=== PATIENT | female | born 1945 | race Caucasian/White ===

== ENCOUNTER → 2016-11-03 | Outpatient (CLI) | payer OTHER | LOC: FIMAGING 07:30 | PROVIDERS: ATTEND Family Medicine | DX: Z12.31 Encounter for screening mammogram for malignant neoplasm of breast (principal); Z80.3 Family history of malignant neoplasm of breast | CPT/HCPCS: G0202 ==

== ENCOUNTER 2016-11-16 09:08 | Observation (INO) | payer OTHER ==
--- NOTE | 2016-11-16 09:32 | CPEKG ---
Heart Rate: 87 RR Interval: 690 QRSD Interval: 92 QT Interval: 384 QTC Interval: 462 QRS [place]: 33 T Wave [place]: 269 EKG Severity - ABNORMAL ECG - EKG Impression: ATRIAL FIBRILLATION, V-RATE 58-106 EKG Impression: NONSPECIFIC REPOL ABNORMALITY, LATERAL LEADS Electronically Signed By: Werner Harvey 16-Nov-2016 15:11:40
--- NOTE | 2016-11-16 09:44 | EDPHY ---
H & P Time Seen by Provider: 11/16/16 09:43 HPI/ROS: Chief complaint. Chest pain HPI. 71-year-old female with known coronary artery disease presents with chest tightness. It has been going off and on for several weeks. When she carries laundry or goes for walks including up and downstairs she develops heaviness in her anterior chest that radiates through to her back. She still has some residual chest discomfort. It is worse with exertion as noted. She has slight shortness of breath with her symptoms. No fever cough. No unusual leg pain or swelling. This is similar to her previous heart disease. She did take aspirin this morning. ROS Constitutional. no fever/chills, no weakness Eyes. no problems with vision ENT. no sore throat, no nasal drainage Cardiovascular. Chest discomfort Respiratory. Shortness of breath with symptoms Abdominal. no abdominal pain, no nausea/vomiting, no diarrhea . no problems urinating MS. no calf pain/swelling, no neck/back pain, no joint pain Skin. no rash Lymph. no swollen glands Neuro. no headache, no dizziness, no difficulty walking or with speech Past Medical/Surgical History: Past medical history seen for CHF, diabetes, RI, angioplasty with stent, atrial fibrillation that is chronic, CVA, right carotid endarterectomy Social History: , nonsmoker, no alcohol Smoking Status: Former smoker Physical Exam: General Appearance: Alert well-developed female mild distress vital signs are stable Eyes: Pupils equal and round no pallor or injection. ENT, Mouth: Mucous membranes are moist. Respiratory: There are no retractions, lungs are clear to auscultation. Cardiovascular: Regular rate and rhythm. Gastrointestinal: Abdomen is soft and nontender, no masses, bowel sounds normal. Neurological: Awake and alert, sensory and motor exams grossly normal. Skin: Warm and dry, no rashes. Musculoskeletal: Neck is supple nontender. Extremities symmetrical, full range of motion. Psychiatric: Patient is oriented X 3, there is no agitation. Constitutional: Initial Vital Signs Temperature (C) 36.6 C 11/16/16 09:13 Heart Rate 77 11/16/16 09:13 Respiratory Rate 14 11/16/16 09:13 Blood Pressure 153/82 H 11/16/16 09:13 O2 Sat (%) 95 11/16/16 09:13 O2 Delivery Mode Room Air Allergies/Adverse Reactions: diazepam [From Valium] Allergy (Verified 04/17/14 10:25) DEMOTHORPAN Allergy (Uncoded 04/17/14 10:25) Home Medications: Medication Instructions Recorded Aspirin [Aspirin 325 mg (*)] 325 mg PO DAILY 04/17/14 Calcium Carbonate [Oyster Shell 750 mg PO DAILY 04/17/14 Calcium 500 mg (*)] Carvedilol [Coreg (*)] 25 mg PO BIDMEAL 04/17/14 Cholecalciferol Vit D3 [Vitamin D3 1,000 units PO BID 04/17/14 (*)] Herbals/Supplements -Info Only 1 ea PO DAILY 04/17/14 Lansoprazole 30 mg PO DAILY 04/17/14 Levothyroxine [Synthroid 88 mcg 88 mcg PO DAILY@04 04/17/14 (*)] Magnesium Oxide [Magnesium Oxide 400 mg PO HS 04/17/14 400 mg (*)] Multivitamins [Multivitamin (*)] 1 each PO DAILY 04/17/14 Vitamin B Complex [Super B-50 1 each PO DAILY 04/17/14 Complex] Warfarin Sodium [Coumadin 1MG (*)] 1 mg PO SUTUWETHSA@16 04/17/14 Warfarin Sodium [Coumadin 1MG (*)] 1.5 mg PO MOFR@16 04/17/14 metFORMIN HCL [Glucophage 500 mg 1,000 mg PO BIDMEAL 04/17/14 (*)] Alton-3 Fatty Acids [Fish Oil 1000 1,000 mg PO DAILY 05/09/14 mg (*)] Digoxin [Lanoxin 125 mcg (RX)] 125 mcg PO DAILY10 #30 tab 10/11/15 Furosemide [Lasix 20 MG (*)] 20 mg PO DAILY 01/13/16 oxyCODONE/APAP 5/325 [Percocet 1 - 2 tab PO Q4 PRN #10 tab 01/14/16 5/325 (*)] traMADol [Ultram 50 mg (*)] 50 mg PO DAILY PRN #45 tab 01/14/16 Medical Decision Making - Diagnostics EKG Interpretation: EKG interpreted by me shows atrial fibrillation with left axis deviation. Inferior and lateral ST-T depression. Ventricular response is 86 Imaging Results: Imaging Impressions Chest X-Ray 11/16/16 09:56 Impression: Cardiomegaly with features of chronic CHF, without acute features. Chest x-ray interpreted by me shows mild CHF but otherwise nonacute Procedures: IV normal saline, monitor ED Course/Re-evaluation: Re-evaluation 01/1940 a.m.. Patient is stable. The patient, her , and I discussed laboratory evaluation, recommendation for admission and further evaluation. They expressed understanding and agreement I consulted and discussed the case with Dr. Mcfadden, hospitalist, who agrees to the admission Differential Diagnosis: This certainly sounds like unstable angina. I have considered acute coronary syndrome, congestive heart failure, pneumonia as well - Data Points Laboratory Results: Laboratory Results 11/16/16 09:30 11/16/16 09:30 11/16/16 11/16/16 11/16/16 09:30 09: 09:30 WBC 8.13 10^3/uL 10^3/uL (3.80-9.50) RBC 4.38 10^6/uL 10^6/uL (4.18-5.33) Hgb 11.7 g/dL L g/dL (12.6-16.3) Hct 36.4 % L % (38.0-47.0) MCV 83.1 fL fL (81.5-99.8) MCH 26.7 pg L pg (27.9-34.1) MCHC 32.1 g/dL L g/dL (32.4-36.7) RDW 15.5 % H % (11.5-15.2) Plt Count 356 10^3/uL 10^3/uL (150-400) MPV 9.8 fL fL (8.7-11.7) Neut % (Auto) 64.6 % % (39.3-74.2) Lymph % (Auto) 19.4 % % (15.0-45.0) [place] % (Auto) 10.2 % % (4.5-13.0) Eos % (Auto) 4.3 % % (0.6-7.6) Baso % (Auto) 1.0 % % (0.3-1.7) Nucleat RBC Rel Count 0.0 % % (0.0-0.2) Absolute Neuts (auto) 5.25 10^3/uL 10^3/uL (1.70-6.50) Absolute Lymphs (auto) 1.58 10^3/uL 10^3/uL (1.00-3.00) Absolute Monos (auto) 0.83 10^3/uL H 10^3/uL (0.30-0.80) Absolute Eos (auto) 0.35 10^3/uL 10^3/uL (0.03-0.40) Absolute Basos (auto) 0.08 10^3/uL 10^3/uL (0.02-0.10) Absolute Nucleated RBC 0.00 10^3/uL 10^3/uL (0-0.01) Immature Gran % 0.5 % % (0.0-1.1) Immature Gran # 0.04 10^3/uL 10^3/uL (0.00-0.10) PT Pending INR Pending APTT Pending Sodium 137 mEq/L mEq/L (134-144) Potassium 4.9 mEq/L mEq/L (3.5-5.2) Chloride 100 mEq/L mEq/L (97-110) Carbon Dioxide 21 mEq/l L mEq/l (22-31) Anion Gap 16 mEq/L mEq/L (8-16) BUN 13 mg/dL mg/dL (7-23) Creatinine 0.7 mg/dL mg/dL (0.6-1.0) Estimated GFR > 60 Glucose 115 mg/dL H mg/dL (70-100) Calcium 9.8 mg/dL mg/dL (8.5-10.4) Troponin I 0.019 ng/mL ng/mL (0-0.034) NT-Pro-B Natriuret Pep 1440 pg/mL H pg/mL (0-125) Departure - Departure Disposition: [facility] Inpatient Acute Clinical Impression: Chest pain Qualifiers: Chest pain type: unspecified Qualified Code(s): R07.9 - Chest pain, unspecified Condition: Fair Referrals: Fariha Townsend MD [Primary Care Provider] - As per Instructions
[2016-11-16 10:04] LABS: % IMMATURE GRANULYOCYTES 0.5 % (0.0-1.1); ABSOLUTE IMMATURE GRANULOCYTES 0.04 10^3/uL (0.00-0.10); ADD DIFF? NO; ADD MORPH? NO; ADD SCAN? NO; ATYPICAL LYMPHOCYTE FLAG 0 (0-99); FRAGMENT RBC FLAG 0 (0-99); HEMATOCRIT 36.4 % (38.0-47.0); HEMOGLOBIN 11.7 g/dL (12.6-16.3); LEFT SHIFT FLG 0 (0-99); LIPEMIA HEMOLYSIS FLAG 80 (0-99); MEAN CELL HEMOGLOBIN 26.7 pg (27.9-34.1); MEAN CELL HEMOGLOBIN CONCENTR. 32.1 g/dL (32.4-36.7); MEAN CELL VOLUME 83.1 fL (81.5-99.8); MEAN PLATELET VOLUME 9.8 fL (8.7-11.7); PLATELET CLUMPS FLAG 10 (0-99); PLATELET COUNT 356 10^3/uL (150-400); RED BLOOD CELL COUNT 4.38 10^6/uL (4.18-5.33); RED CELL DISTRIBUTION WIDTH 15.5 % (11.5-15.2)
[2016-11-16 10:13] LABS: ANION GAP 16 mEq/L (8-16); CALCIUM 9.8 mg/dL (8.5-10.4); CARBON DIOXIDE 21 mEq/l (22-31); CHLORIDE 100 mEq/L (97-110); CREATININE 0.7 mg/dL (0.6-1.0); GLOMERULAR FILTRATION RATE > 60; GLUCOSE 115 mg/dL (70-100); POTASSIUM 4.9 mEq/L (3.5-5.2); SODIUM 137 mEq/L (134-144)
[2016-11-16 10:25] LABS: TROPONIN I 0.019 ng/mL (0-0.034)
[2016-11-16 10:48] LABS: INR 2.01 (0.83-1.16)
[2016-11-16 10:49] LABS: APTT 38.9 SEC (23.0-38.0)
[2016-11-16 10:50] LABS: PROTIME(PATIENT) 22.9 SEC (12.0-15.0)
[2016-11-16] MEDS ORDERED: clonazePAM 0.5 MG TAB PO PRN (16:03)
[2016-11-16] MEDS ORDERED: NITROGLYCERIN 0.4 MG BTL SL PRN (16:08)
[2016-11-16] MEDS ORDERED: ACETAMINOPHEN 325 MG TAB PO PRN (16:10)
[2016-11-16] MEDS ORDERED: ONDANSETRON 4 MG/2 ML VIAL IVP PRN (16:10)
--- NOTE | 2016-11-16 16:40 | GHP ---
[f rep st] HISTORY AND PHYSICAL DATE OF ADMISSION: 11/16/2016 CHIEF COMPLAINT: Chest pain. HISTORY: The patient is a 71-year-old female, who has been having chest pain off and on for the las t few weeks. She describes it as a chest heaviness that she notices when she is walking for a long distance. It gets better when she rests. This is very similar to the pain that she had prior to he r stent in 2007. It radiates to her bilateral shoulders and back and feels like it takes her breath away. She is currently chest pain free. She denies ever having any dizziness or lightheadedness. PAST MEDICAL HISTORY: 1. Atrial fibrillation. 2. Coronary artery disease, status post stent to the LAD in 2007. 3. Congestive heart failure secondary to diastolic dysfunction. 4. Peripheral vascular disease, status post right carotid endarterectomy. 5. Stroke. 6. Cervical stenosis. 7. Hypertension. 8. Hyperlipidemia. 9. Diabetes type 2. PAST SURGICAL HISTORY: Cholecystectomy, right hip surgery. MEDICATIONS: Please see computer record for full detailed list. ALLERGIES: Diazepam. 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 She drinks 1 alcoholic beverage 4 times a week. She lives with her . REVIEW OF SYSTEMS: Complete review of systems obtained. Review of systems is negative on constitut ional, HEENT, GI, pulmonary, cardiovascular, , hematology, skin, musculoskeletal, endocrine, psych except for positives and negatives as noted in HPI. FAMILY HISTORY: Reviewed and noncontributory to presenting complaint. PHYSICAL EXAMINATION: GENERAL: A well-developed, well-nourished female, in no acute distress. VIT AL SIGNS: Temperature is 36.6, pulse 68, blood pressure 126/70, satting 93% on room air. EYES: No rmal conjunctivae. Pupils react to light. ENT: Normal ears and nose. Hearing intact. Normal lip s and teeth. Oropharynx moist. NECK: Trachea midline. No thyromegaly. CHEST: Normal respirator y effort. LUNGS: Clear to auscultation bilaterally. CARDIOVASCULAR: Regular rhythm. No murmur. No lower extremity edema. ABDOMEN: Soft, nontender. No hepatomegaly. SKIN: Warm, dry, intact. No rash. MUSCULOSKELETAL: No cyanosis or clubbing. Strength 5/5 in upper and lower extremities. NEUROLOGIC: Cranial nerves intact. Normal sensation to light touch. PSYCH: Alert and oriented x 3. Normal affect. Normal judgment. Normal memory. LABORATORY DATA: White count 8.13, hematocrit 36.4, platelets 356. Sodium 137, potassium 4.9, chlo ride 100, bicarb 21, BUN 13, creatinine 0.7, glucose 115. BNP is 1440. INR is 2.01. Chest x-ray shows cardiomegaly but no acute congestive heart failure. EKG interpreted by me. My personal interpretation is atrial fibrillation, inferior and lateral ST d epressions and T-wave inversions. ASSESSMENT AND PLAN: 1. Chest pain. This is a very concerning history in a high-risk patient with known cardiac and vas cular disease. We will follow serial troponins and EKGs. I have spoken with Cardiology and would c onsider proceeding straight to cardiac catheterization in the morning. Alternatively, we could do s tress testing first, although given her high-risk status, I think a catheterization may be indicated . Will treat overnight with morphine as needed, sublingual nitroglycerin, aspirin, continue her bet a kendra, and check her lipids in the morning. 2. Atrial fibrillation with greater than 2-second pauses. These are asymptomatic. We will hold he r digoxin and check a digoxin level in the morning. I will cut her Coreg in half. Will watch her o n telemetry. Continue warfarin for stroke prevention. 3. Diabetes type 2. I will hold her metformin in anticipation of probable intravenous dye. CODE STATUS: Full. ADMISSION STATUS: 1. Will admit to observation. Depending on clinical course will determine length of stay. 2. DVT prophylaxis. She is chronically anticoagulated, which will be continued. /[id number]/MODL
[2016-11-16] MEDS: CARVEDILOL 6.25 MG TAB PO SCH (18:48)
[2016-11-17] MEDS ORDERED: LEVOTHYROXINE 88 MCG TAB PO SCH (04:00)
[2016-11-17 05:52] LABS: % IMMATURE GRANULYOCYTES 0.3 % (0.0-1.1); ABSOLUTE IMMATURE GRANULOCYTES 0.02 10^3/uL (0.00-0.10); ADD DIFF? NO; ADD MORPH? NO; ADD SCAN? NO; ATYPICAL LYMPHOCYTE FLAG 0 (0-99); FRAGMENT RBC FLAG 0 (0-99); HEMATOCRIT 34.6 % (38.0-47.0); HEMOGLOBIN 11.2 g/dL (12.6-16.3); LEFT SHIFT FLG 0 (0-99); LIPEMIA HEMOLYSIS FLAG 80 (0-99); MEAN CELL HEMOGLOBIN 26.8 pg (27.9-34.1); MEAN CELL HEMOGLOBIN CONCENTR. 32.4 g/dL (32.4-36.7); MEAN CELL VOLUME 82.8 fL (81.5-99.8); MEAN PLATELET VOLUME 9.5 fL (8.7-11.7); PLATELET CLUMPS FLAG 0 (0-99); PLATELET COUNT 305 10^3/uL (150-400); RED BLOOD CELL COUNT 4.18 10^6/uL (4.18-5.33); RED CELL DISTRIBUTION WIDTH 15.3 % (11.5-15.2)
[2016-11-17] MEDS ORDERED: ASPIRIN EC 325 MG TAB PO ONE (06:00)
[2016-11-17] MEDS ORDERED: NS 1,000 ML IV ONE (06:00)
[2016-11-17] MEDS ORDERED: diphenhydrAMINE 25 MG CAP PO ONE (06:00)
[2016-11-17 06:02] LABS: APTT 36.8 SEC (23.0-38.0); INR 1.85 (0.83-1.16); PROTIME(PATIENT) 21.4 SEC (12.0-15.0)
[2016-11-17 06:09] LABS: ANION GAP 13 mEq/L (8-16); CALCIUM 9.7 mg/dL (8.5-10.4); CARBON DIOXIDE 23 mEq/l (22-31); CHLORIDE 104 mEq/L (97-110); CHOLESTEROL 215 mg/dL (140-220); CREATININE 0.6 mg/dL (0.6-1.0); DIGOXIN 0.8 ng/mL (0.8-2.0); GLOMERULAR FILTRATION RATE > 60; GLUCOSE 118 mg/dL (70-100); HIGH DENSITY LIPOPROTEIN 25 mg/dL (40-85); LDL/HDL RATIO 6.56 RATIO (1.00-3.22); LOW DENSITY LIPOPROTEIN 164 mg/dL (80-100); MAGNESIUM 2.1 mg/dL (1.6-2.3); NON-HIGH DENSITY LIPOPROTEIN 190 mg/dL (90-129); POTASSIUM 4.6 mEq/L (3.5-5.2); SODIUM 140 mEq/L (134-144); TRIGLYCERIDE 130 mg/dL (35-135); VERY LOW DENSITY LIPOPROTEINS 26 mg/dL (8-25)
[2016-11-17] MEDS: CARVEDILOL 6.25 MG TAB PO SCH (08:24)
[2016-11-17] MEDS ORDERED: FUROSEMIDE 20 MG TAB PO SCH (09:00)
[2016-11-17] MEDS ORDERED: ASPIRIN 325 MG TAB PO SCH (09:00)
[2016-11-17] MEDS ORDERED: LANSOPRAZOLE SUSP 3 MG/ML UDSYR (Peds) PO SCH (09:00)
[2016-11-17] MEDS ORDERED: PANTOPRAZOLE SODIUM 40 MG TAB PO SCH (09:00)
[2016-11-17] MEDS ORDERED: IOPAMIDOL (ISOVUE-370) 150 ML BTL IV ONE (09:19)
[2016-11-17] MEDS ORDERED: MIDAZOLAM 2 MG/2 ML VIAL ONE ×2 (09:19→10:28)
[2016-11-17] MEDS ORDERED: LIDOCAINE 1% 300 MG/30 ML SDV ONE (09:19)
[2016-11-17] MEDS ORDERED: fentaNYL 100 MCG/2 ML INJ ONE ×2 (09:19→10:28)
[2016-11-17] MEDS ORDERED: VERAPAMIL 5 MG/2 ML VIAL ONE (10:12)
[2016-11-17] MEDS ORDERED: HEPARIN 10,000 UNIT/10 ML MDV ONE (10:12)
--- NOTE | 2016-11-17 10:29 | ECHO ---
[id number] + + [address] : : [place] [address] : : [phone] + Adult Echocardiographic Report + -----+ :Name: LEI BURTON RStudy Date: 11/17/2016 09:32 AM : : Hospital Admission Number: [id number] Location : 214: :: 1945 Gender: Female Height: 65 in : :Age: 71 yrs Race: WH Weight: 187 lb : :Reason For Study: CHF : : BSA: 1.9 meters2 : + -----+ MMode/2D Measurements \T\ Calculations IVSd: 1.1 cm LVIDd: 4.3 cm FS: 22.7 % MV Diam: 2.9 cm LVPWd: 1.1 cm LVIDs: 3.3 cm EDV(Teich): 82.8 ml ESV(Teich): 44.8 ml EF(Teich): 45.9 % LA dimension: LVOT diam: 2.2 cmLVLd ap4: 8.1 cm SV(MOD-sp4): 4.6 cm LVOT area: EDV(MOD-sp4): 40.0 ml 3.7 cm2 77.0 ml LVLs ap4: 6.7 cm ESV(MOD-sp4): 37.0 ml EF(MOD-sp4): 51.9 % Normal Measurement Values: + + :LVIDd (3.5-5.7cm) IVSd (0.6-1.1cm) LVPWd (0.6-1.1cm) Aortic Root (2.0-3.7cm)Left Atrium (1.5-4.0cm): :LV Vol(d) (76-115ml) LV Vol(s) (29-48ml) Ejec Fraction (50-65%)PV Bayron (0.6- 1.2m/s) TV Bayron (0.4-1.0m/s) : :MV E Bayron (0.8-1.0m/s)MV A [place]ron (0.3-1.0m/s)LVOT [place]ron (0.7-1.2m/s) Asc Ao Bayron ( 0.9-1.8m/s) : + + Doppler Measurements \T\ Calculations MV E max bayron: MV V2 max: Ao mean PG: LV V1 mean P.7 cm/sec 108.6 cm/sec 16.3 mmHg 1.3 mmHg MV A max bayron: MV max P.7 mmHg Ao V2 mean: LV V1 mean: 34.1 cm/sec MV V2 mean: 189.2 cm/sec 54.7 cm/sec MV E/A: 3.0 60.8 cm/sec Ao V2 VTI: 66.0 cm LV V1 VTI: 19.1 cm MV mean P.7 mmHgAVA(I,D): 1.1 cm2 MV V2 VTI: 27.2 cm MV area (1 diam): 6.8 cm2 MVA(VTI): 2.6 cm2 MV Flow area(1diam): 6.8 cm2 MR max bayron: MR(RF 1 diam): SV(MV 1 diam): TR max bayron: 550.6 cm/sec 13.7 % 185.3 ml 274.2 cm/sec MR max PG: SI(MV 1 diam): TR max P.3 mmHg 96.4 ml/m2 30.1 mmHg SV(LVOT): 69.8 ml RAP systole: 10.0 mmHg RVSP(TR): 40.1 mmHg RF(MV,LVOT)(1diam): 0.62 Left Ventricle The left ventricle is normal in size. There is mild concentric left ventricular hypertrophy. Left ventricular systolic function is normal. Ejection Fraction = 55-60%. No regional wall motion abnormalities noted. Right Ventricle The right ventricle is normal in size and function. Atria The left atrium is moderately dilated. The right atrium is mild to moderately dilated. The interatrial septum is intact with no evidence for an atrial septal defect. Mitral Valve Calcified mitral apparatus. There is mild mitral annular calcification. There is no evidence of mitral valve prolapse. There is no mitral valve stenosis. There is moderate mitral regurgitation. Tricuspid Valve Normal tricuspid valve. There is moderate tricuspid regurgitation. Right ventricular systolic pressure is normal. Aortic Valve Moderate to severe calcification of the AV. Mild valvular aortic stenosis. AV max PG is 28mmHG. AV mean PG is 16mmHG. There is no aortic insufficiency. Pulmonic Valve The pulmonic valve is normal in structure and function. There is no pulmonic valvular regurgitation. Great Vessels The aortic root is normal size. Pericardium/Pleural There is no pericardial effusion. Conclusion A complete two-dimensional transthoracic echocardiogram was performed (2D, M-mode, Doppler and color flow Doppler). Compared to the study of 10/14, the aortic velocities have increased. Left ventricular systolic function is normal. There is mild concentric left ventricular hypertrophy. Ejection Fraction = 55-60%. The left atrium is moderately dilated. The right atrium is mild to moderately dilated. Calcified mitral apparatus. There is mild mitral annular calcification. There is moderate mitral regurgitation. There is moderate tricuspid regurgitation. Right ventricular systolic pressure is normal. Moderate to severe calcification of the AV. Mild valvular aortic stenosis. AV max PG is 28mmHG. AV mean PG is 16mmHG. Final Reading Physician: Rogerio Diamond signed on 11/17/2016 10:28 AM Ordering Physician: Melany Buckner Performed By: Alyssa Duff, CS
--- NOTE | 2016-11-17 10:38 | GCON ---
[f rep st] CONSULTATION CARDIOLOGY CONSULTATION PRIMARY SPEEDBOAT OPERATOR: Dr. Khanh Sheriff. REASON FOR CONSULTATION: We were asked by Dr. Sherlyn Mcfadden of [facility] to evaluate this patient for her chest pain. HISTORY OF PRESENT ILLNESS: The patient is a 71-year-old female with permanent atrial fibrillation, CAD with PTCA and stenting to LAD in 2007, CVA status post carotid endarterectomy in 2014, who is admitted for chest pain. She was seeing her primary care physician and mention to her that she has been having exertional angina for the past few months. She describes she will start walking either upstairs or carrying her laundry or to her daughter's house next door and note a midsternal chest discomfort that is described as a squeezing sensation. This is moderate to severe in intensity and will radiate to her bilateral shoulders. She notes possibly some associated shortness of breath but no diaphoresis, nausea or presyncope. She reports symptoms are relieved by stopping walking. She has not been noting any rest symptoms. She has been compliant with her fluid restriction after a diastolic heart failure admission last year. She was admitted with weakness, dyspnea and severe hyponatremia with AFib with rapid ventricular response. She was treated with IV diuresis and has been maintained on p.o. diuretics since then. She reports weights have been stable. She has not noted much in way of palpitations, presyncope, syncope, PND, orthopnea or peripheral edema. She denies any recent illness. PAST MEDICAL HISTORY: 1. Anemia. 2. Atrial fibrillation. 3. Diastolic CHF. 4. CVA. 5. Diabetes. 6. Lichen simplex chronicus. 7. Hyponatremia. 8. Hypothyroidism. 9. Coronary artery disease. 10. Peripheral vascular disease. 11. GERD. PAST SURGICAL HISTORY: Bladder surgery in 1999 and right carotid endarterectomy in 2014. MEDICATIONS: Please see chart. ALLERGIES: Noted. FAMILY HISTORY: No significant family history noted. SOCIAL HISTORY: Tobacco use is former. No significant alcohol use noted. REVIEW OF SYSTEMS: As per HPI. A complete 10-point review of systems was obtained and is negative except for what is dictated. PHYSICAL EXAM: VITAL SIGNS: BP of 126/70, heart rate of 68, respirations 18, O2 saturation 93% on room air, temp of 97.9 degrees Fahrenheit. GENERAL: She is a very pleasant female in no apparent distress. HEENT: Eyes are without scleral icterus. Normocephalic atraumatic. NECK: Supple with no JVD. No carotid bruit auscultated but diminished carotid impulses bilaterally. HEART: Irregularly irregular with a 2/6 to 3/6 systolic ejection murmur. LUNGS: Clear. ABDOMEN: Nontender with normoactive bowel sounds. GENITOURINARY: Without [place]. SKIN: Warm and dry. There are 1+ PT and DP pulses bilaterally. PSYCHIATRIC: Normal mood and affect. LABORATORY DATA: BMP with sodium 137, potassium 4.9, chloride 100, CO2 21, BUN 13, creatinine 0.7, glucose of 115, troponin 0.019. NT proBNP of 1440, INR of 2.01. CBC with WBC 8.13, hemoglobin 11.7, hematocrit 36.4, platelet count of 356. A 12-lead ECG personally interpreted demonstrates atrial fibrillation with a controlled ventricular rate of 87. There are diffuse ST-T wave abnormalities and these are new from previous EKG from 1 year ago. RSR prime detected. Database: 12/10/2009, left heart catheterization without any new disease detected. Last echo was 10/16/2015, which showed normal LVEF at 55-60, moderately dilated left atrium, moderately to severely dilated right atrium, MAC with moderate MR, moderate to severe TR. Normal RVSP, moderate to severe aortic calcification with trace aortic regurgitation, left pleural effusion detected. Nuclear stress test from our office from 08/07/2015 shows EF of 48%. No significant reversible defects detected. 07/21/2015 carotid Doppler shows right internal carotid artery stenosis of less than 50%, right external carotid has no abnormalities, left common carotid without any significant abnormality. IMPRESSION AND PLAN: The patient is a 71-year-old female who presents with chest pain. 1. Chest pain suggestive of CCS class 3 angina. She has a known history of coronary artery disease and has had worsening symptoms over the past few months. We reviewed options, and patient is agreeable to left heart catheterization for further evaluation. She is on appropriate medical management for her coronary disease with carvedilol, aspirin. She has statin listed as an allergy in the past. 2. Coronary artery disease, status post PCI in 2007. 3. Dyslipidemia. Last LDL was checked in 2013, and her LDL was 201. She may be a candidate for PCS K9 inhibitor. This will be evaluated further in the outpatient setting. 4. Permanent atrial fibrillation. She has a very elevated [id number] at 7. Her warfarin is being held to allow for a lower INR for cardiac catheterization for tomorrow. 5. History of diastolic congestive heart failure with also right heart failure. She appears mostly euvolemic at this time. She may continue her oral Lasix dosing as an inpatient. /[id number]/MODL MTDD
[2016-11-17] MEDS ORDERED: ATROPINE SULFATE 1 MG/10 ML SYR IVP PRN (11:28)
--- NOTE | 2016-11-17 11:30 | PDCARPN ---
Cardiology Progress Note Chief Complaint: unstable angina Assessment/Plan: Assessment: 71 y/o F with PMH permanent AF on Warfarin/rate control, htn, dyslipidemia, CAD , CEA, mod MR, mild and modTR, DCHF, here with symptoms suggestive of [place]. Proceeded to [facility] today. #. CAD: patent stent with no obstructive lesions identified on [facility] today continue medical management with Carvedilol not on statin due to state intolerance #. AF: permanent rate appears controlled resume Warfarin today #. DCHF: appears euvolemic continue outpatient dose of Lasix #. PVD: s/p CEA #. dyslipidemia: LDL 164 address this as outpatient #. : appears mild on echo query if she has low flow causing cp will schedule for Dobutamine stress echo as outpatient Plan: OK to d/c from cardiac perspective with outpatient follow up (pt will be contacted) 11/17/16 11:24 11/17/16 11:30 Subjective: No events overnight. Reviewed/Discussed With: hospitalist Objective: Vital Signs (8 Hrs) Temp Pulse Resp BP Pulse Ox 11/17/16 07:14 97.6 F 70 14 149/79 H 93 11/17/16 04:00 97.9 F 63 13 149/84 H 93 Intake/Output (24 Hrs) 11/16/16 11/17/16 11/18/16 05:59 05:59 05:59 Intake Total 100 Output Total 1900 Balance -1800 Intake: Oral (ml) 100 Output: Urine (ml) 1900 Toilet 1900 Other: Weight 84.958 kg Number of Voids Toilet 1 Result Diagrams: 11/17/16 05:34 11/17/16 05:34 Cardiac Labs: Cardiac Lab Results (72 Hrs) 11/17/16 11/16/16 00:45 18:48 Troponin I 0.021 0.018 - Physical Exam Constitutional: no apparent distress Ears, Nose, Mouth, Throat: moist mucous membranes Cardiovascular: systolic murmur, irregularly irregular Respiratory: clear to auscultate bilat Neurologic: AAOx3 Psychiatric: cooperative, interactive ICD10 Worksheet Patient Problems: Problems Problem Status Onset Chest pain Acute Afib Acute Atrial fibrillation with rapid ventricular response Acute CAD (coronary artery disease) Acute Carotid stenosis Acute Cervical stenosis of spinal canal Acute Congestive heart failure Acute DM2 (diabetes mellitus, type 2) Acute Dehydration Acute HLD (hyperlipidemia) Acute HTN (hypertension) Acute Hyponatremia Acute Stroke Acute Vertebral artery stenosis Acute
[2016-11-17 12:27] VITALS: RESP 18
[2016-11-17 13:39] VITALS: BP 124/77; PULSE 55; TEMP 97.5; O2SAT 97
[2016-11-17] MEDS ORDERED: WARFARIN SODIUM 1 MG TAB PO SCH (16:00)
--- NOTE | 2016-11-17 21:55 | CPIP ---
[f rep st] INVASIVE CARDIAC PROCEDURE DATE OF PROCEDURE: 11/17/2016 INDICATIONS: The patient is 71 years old. She has known coronary and peripheral vascular disease. She underwent stenting of the proximal LAD back in 2007. She presents now with new onset exertiona l angina, class 3, on maximal medical therapy. PROCEDURE: Diagnostic left heart catheterization, coronary angiography, left ventriculography. TECHNIQUE: Following informed consent, in the fasting state, patient was brought to cardiac cathete rization laboratory. Right wrist was prepped and draped in the usual sterile fashion. Access was g ained to the right radial artery using micropuncture kit and the modified Seldinger technique. A 5- [place] SafeSheath was placed. Using a JL3.5, JR4, and an angled pigtail, orthogonal images of the c oronary arteries and left ventriculography was performed. Following the procedure, all catheters we re removed from the body. FINDINGS: Left main: Left main is a large caliber vessel with appropriate bifurcation of the left anterior descending and circumflex distributions. Left main is angiographically free of disease. Left anterior descending: Prior to injection of contrast dye, a stent is well visualized in the pro ximal portion of the left anterior descending. Left anterior descending is large in caliber and tra nsapical. There are multiple small diagonal branches which are essentially insignificant. There is minimal in-stent restenosis appreciated of less than 20%. The remainder of the left anterior desce nding contains luminal irregularities up to 20% with no obstructive lesions. Circumflex: Circumflex is moderate in the proximal segment, becoming diminutive within the AV groov e after the origination of 3 obtuse marginal branches. The circumflex contains luminal irregulariti es, less than 20%. Right coronary artery: Right coronary artery is moderate caliber and dominant. The PDA and several small posterolateral branches are noted. The right coronary artery contains luminal irregularities , less than 20%. LEFT VENTRICULOGRAPHY: The ejection fraction is estimated at 55%. There is homogeneous contractili ty in all cardiac segments. 1+ mitral insufficiency is noted. The visualized portions of the thora cic aorta within normal dimensions. HEMODYNAMICS: Left ventricular pressure 128/19 with an aortic pressure of 108/62 mmHg with a peak-t o-peak transaortic pressure gradient of 20 mmHg. IMPRESSION: 1. Known coronary artery disease with previous stented proximal left anterior descending segment wi th evidence of minimal in-stent restenosis. There is no indication of additional high-grade obstruc tive lesions on this angiogram. 2. Preserved left ventricular systolic function with ejection fraction of 55% without wall motion a bnormalities. 3. Evidence of 1+ mitral insufficiency with a 20 mmHg [id number] gradient noted across the aortic valve on pullback. 4. [place] [employer] Class 3 angina. PLAN: 1. At this point, there is no indication of large vessel disease as the etiology for the patient's symptoms. 2. Based on review of her echocardiogram and her cardiac catheterization, the possibility exists fo r low-flow, low gradient aortic stenosis as the etiology for her discomfort. She will undergo an ou tpatient stress echocardiogram for further assessment of this condition. 3. Depending on the results of the above, she may benefit from therapy for small vessel disease or workup for alternate etiologies to her symptoms. /[id number]/MODL
--- NOTE | 2016-11-18 05:31 | GDS ---
[f rep st] DISCHARGE SUMMARY DISCHARGE DIAGNOSES: 1. Chest pain with negative cardiac catheterization. 2. Mild aortic stenosis. 3. Hyperlipidemia. 4. Coronary artery disease, status post previous stent to the LAD. 5. Atrial fibrillation with mild pauses. 6. Diabetes type 2. 7. Peripheral vascular disease, status post carotid endarterectomy. 8. Chronic congestive heart failure secondary to diastolic dysfunction. HISTORY: The patient is a 71-year-old female, who has been having chest pain off and on for the las t few weeks. Her story was very concerning for coronary ischemia and angina as these symptoms were similar to her previous heart stent in 2007. Cardiology was consulted, and she underwent cardiac ca theterization. There was no obstructive coronary artery disease. There was low flow, however, thro ugh her aortic valve, so question whether her valvular disease may be contributing. Echocardiogram was consistent with mild aortic stenosis. Cardiology is recommending a dobutamine stress echo, whic h can be performed as an outpatient. She has known AFib and did have some mild pauses, asymptomatic, noted on telemetry. Her digoxin lev el is 0.8. Her Coreg dose was cut in half to 12.5 mg p.o. b.i.d., and there was no further pausing seen at this time. Despite being a known vasculopath, she does not appear to be on a statin drug. Her lipid panel is p oorly controlled, including an LDL of 164. She was started on Lipitor 40 mg at discharge. DISCHARGE MEDICATIONS: Please see computer record for full detailed list. New medications: 1. Lipitor 40 mg p.o. daily. 2. Coreg reduced to 12.5 mg p.o. b.i.d. ADDITIONAL DISCHARGE INSTRUCTIONS: 1. Hold metformin for 48 hours post cardiac catheterization. 2. Follow up with Cardiology for outpatient dobutamine stress echocardiogram. Patient seen and examined by me on the day of discharge. /[id number]/MODL
== END 2016-11-17 16:25 | disposition home or self-care (01) ==
LOC: INTOOBSV 10:47 → F2W 12:00
PROVIDERS: ADMIT Internal Medicine; ATTEND Internal Medicine
PROC: B2151ZZ Fluoroscopy of Left Heart using Low Osmolar Contrast (ICD-10-PCS; principal; 2016-11-16)
PROC: B2111ZZ Fluoroscopy of Multiple Coronary Arteries using Low Osmolar Contrast (ICD-10-PCS; principal; 2016-11-16)
PROC: 4A023N7 Measurement of Cardiac Sampling and Pressure, Left Heart, Percutaneous Approach (ICD-10-PCS; principal; 2016-11-16)
DX: I25.119 Atherosclerotic heart disease of native coronary artery with unspecified angina pectoris (principal); T82.857A Stenosis of other cardiac prosthetic devices, implants and grafts, initial encounter; I48.2 Chronic atrial fibrillation; I50.32 Chronic diastolic (congestive) heart failure; E11.51 Type 2 diabetes mellitus with diabetic peripheral angiopathy without gangrene; E78.5 Hyperlipidemia, unspecified; I25.2 Old myocardial infarction; Z86.73 Personal history of transient ischemic attack (TIA), and cerebral infarction without residual deficits
CPT/HCPCS: 71010; 93005; 93306; 93458; 99285; C1769; G0378; J1644; J2250; J3010; Q9967

== ENCOUNTER → 2016-11-22 | Outpatient (CLI) | payer OTHER | LOC: BHFA 11:30 | PROVIDERS: ATTEND Internal Medicine Cardiovascular Disease | DX: I35.0 Nonrheumatic aortic (valve) stenosis (principal) ==

== ENCOUNTER 2017-05-27 08:39 | Emergency (ER) | payer OTHER ==
--- NOTE | 2017-05-27 08:49 | EDPHY ---
H & P Stated Complaint: vertigo starting Time Seen by Provider: 05/27/17 08:48 HPI/ROS: CHIEF COMPLAINT: Ataxia HISTORY OF PRESENT ILLNESS: The patient presents to the ED with a several day history of ataxia and disequilibrium. She reports her symptoms are worsened with ambulation. She does have a prior history of stroke. She is currently anticoagulated with Coumadin. She also has a history of atrial fibrillation. She is status post right carotid endarterectomy several years ago. The patient denies any peripheral numbness or weakness. She denies any additional acute complaints. REVIEW OF SYSTEMS: A comprehensive 10 point review of systems is otherwise negative aside from elements mentioned in the history of present illness. Source: Patient Exam Limitations: No limitations - Personal History Current Tetanus/Diphtheria Vaccine: Yes Current Tetanus Diphtheria and Acellular Pertussis (TDAP): Yes Tetanus Vaccine Date: < 10 YEARS - Medical/Surgical History Hx Asthma: No Hx Chronic Respiratory Disease: No Hx Diabetes: Yes Hx Cardiac Disease: Yes Hx Renal Disease: No Hx Cirrhosis: No Hx Alcoholism: No Hx HIV/AIDS: No Hx Splenectomy or Spleen Trauma: No Other PMH: chf, DM, TN, Stent, CAD, HLD, Afib, bladder lift, Rt KP, CVA, right carotid endarterectomy - Social History Smoking Status: Former smoker - Physical Exam Exam: General Appearance: Alert, no distress Eyes: Pupils equal and round no pallor or injection ENT, Mouth: Mucous membranes moist Respiratory: There are no retractions, lungs are clear to auscultation Cardiovascular: Regular rate and rhythm Gastrointestinal: Abdomen is soft and nontender, no masses, bowel sounds normal Neurological: A&O, normal motor function, normal sensory exam, normal cranial nerves, slight ataxia noted with finger-nose testing bilaterally Skin: Warm and dry, no rashes Musculoskeletal: Neck is supple nontender Extremities: symmetrical, full range of motion Constitutional: Initial Vital Signs Temperature (C) 37 C 05/27/17 08:44 Heart Rate 82 05/27/17 08:44 Respiratory Rate 18 05/27/17 08:44 Blood Pressure 151/106 H 05/27/17 08:44 O2 Sat (%) 97 05/27/17 08:44 O2 Delivery Mode Room Air Allergies/Adverse Reactions: diazepam [From Valium] Allergy (Verified 05/27/17 08:43) DEMOTHORPAN Allergy (Uncoded 04/17/14 10:25) Home Medications: Medication Instructions Recorded Aspirin [Aspirin 325 mg (*)] 325 mg PO DAILY 04/17/14 Herbals/Supplements -Info Only 1 ea PO DAILY 04/17/14 Lansoprazole 30 mg PO DAILY 04/17/14 Levothyroxine [Synthroid 88 mcg 88 mcg PO DAILY@04 04/17/14 (*)] Multivitamins [Multivitamin (*)] 1 each PO DAILY 04/17/14 Warfarin Sodium [Coumadin 1MG (*)] 1 mg PO DAILY@16 04/17/14 metFORMIN HCL [Glucophage 500 mg 1,000 mg PO BIDMEAL 04/17/14 (*)] Digoxin [Lanoxin 125 mcg (RX)] 125 mcg PO DAILY10 #30 tab 10/11/15 Furosemide [Lasix 20 MG (*)] 20 mg PO DAILY 01/13/16 clonazePAM [Klonopin (*)] 0.5 mg PO DAILY PRN 11/16/16 Atorvastatin Calcium [Lipitor 40 40 mg PO DAILY #30 tab 11/17/16 mg (*)] Carvedilol [Coreg (*)] 12.5 mg PO BIDMEAL #120 tab 11/17/16 Meclizine HCl [Meclizine HCl 25 mg 25 mg PO BID PRN #20 tab 05/27/17 (RX,OTC)] Medical Decision Making - Diagnostics EKG Interpretation: EKG: Complete interpretation has been separately recorded in the [facility] archive. Summary impression: Atrial fibrillation, rate 86, single PVC noted Imaging Results: Imaging Impressions Brain MRI 05/27/17 09:04 Impression: 1. No acute intracranial findings. 2. Atrophy with white matter change most likely related to chronic microvascular ischemic gliosis. MR angiogram neck: No evidence of flow limiting stenosis or dissection. Images reviewed by myself and discussed with Dr. Harris from Radiology. ED Course/Re-evaluation: The patient presents to the ED for evaluation of very mild ataxia and slight vertigo. The patient was noted to have a slightly abnormal [id number] on exam however that is difficult to understand what the patient's baseline is. She arrives with an otherwise unremarkable neurologic examination. The patient is currently anticoagulated and is not a candidate for thrombolytics therapy. The patient has had symptoms for the past several days. She was consented to undergo an MRI of the brain which demonstrates no evidence of an acute stroke. Additionally, the patient has a history of carotid disease status post right carotid endarterectomy. Angiographic studies of the neck were obtained and no evidence of an obvious dissection or flow limiting stenosis is appreciated. I reviewed the results of the patient's MRIs personally and discuss them with the on-call radiologist Dr. Harris. I informed the patient of her workup here today. At this point time I do feel that she can try meclizine for management of her symptoms. There is no evidence of an obvious stroke or vascular abnormality. The patient is advised to return to the ED for markedly worsening symptoms or other concerns. I re-evaluated the patient at 11:40 a.m. and she is in no acute distress. She is comfortable with the plan and disposition. Differential Diagnosis: Differential diagnosis considered includes peripheral vertigo, stroke, intracranial hemorrhage, TIA, vertebral basilar insufficiency - Data Points Laboratory Results: Laboratory Results 05/27/17 09:05 05/27/17 09:05 05/27/17 05/27/17 05/27/17 09:05 09:05 09:05 WBC 6.09 10^3/uL 10^3/uL (3.80-9.50) RBC 4.05 10^6/uL L 10^6/uL (4.18-5.33) Hgb 10.7 g/dL L g/dL (12.6-16.3) Hct 33.2 % L % (38.0-47.0) MCV 82.0 fL fL (81.5-99.8) MCH 26.4 pg L pg (27.9-34.1) MCHC 32.2 g/dL L g/dL (32.4-36.7) RDW 15.7 % H % (11.5-15.2) Plt Count 347 10^3/uL 10^3/uL (150-400) MPV 9.5 fL fL (8.7-11.7) Neut % (Auto) 62.7 % % (39.3-74.2) Lymph % (Auto) 19.9 % % (15.0-45.0) Hinds % (Auto) 10.7 % % (4.5-13.0) Eos % (Auto) 5.6 % % (0.6-7.6) Baso % (Auto) 0.8 % % (0.3-1.7) Nucleat RBC Rel Count 0.0 % % (0.0-0.2) Absolute Neuts (auto) 3.82 10^3/uL 10^3/uL (1.70-6.50) Absolute Lymphs (auto) 1.21 10^3/uL 10^3/uL (1.00-3.00) Absolute Monos (auto) 0.65 10^3/uL 10^3/uL (0.30-0.80) Absolute Eos (auto) 0.34 10^3/uL 10^3/uL (0.03-0.40) Absolute Basos (auto) 0.05 10^3/uL 10^3/uL (0.02-0.10) Absolute Nucleated RBC 0.00 10^3/uL 10^3/uL (0-0.01) Immature Gran % 0.3 % % (0.0-1.1) Immature Gran # 0.02 10^3/uL 10^3/uL (0.00-0.10) PT 24.7 SEC H SEC (12.0-15.0) INR 2.23 H (0.83-1.16) Sodium 140 mEq/L mEq/L (135-145) Potassium 4.9 mEq/L mEq/L (3.5-5.2) Chloride 100 mEq/L mEq/L (97-110) Carbon Dioxide 26 mEq/l mEq/l (22-31) Anion Gap 14 mEq/L mEq/L (8-16) BUN 11 mg/dL mg/dL (7-23) Creatinine 0.6 mg/dL mg/dL (0.6-1.0) Estimated GFR > 60 Glucose 129 mg/dL H mg/dL (70-100) Calcium 9.8 mg/dL mg/dL (8.5-10.4) Troponin I 0.023 ng/mL ng/mL (0.000-0.034) Medications Given: Discontinued Medications Lorazepam (Ativan Injection) 0.5 mg IVP EDNOW ONE Stop: 05/27/17 09:42 Last Admin: 05/27/17 09:47 Dose: 0.5 mg Departure - Departure Disposition: Home, Routine, Self-Care Clinical Impression: Vertigo, Ataxia Condition: Good Instructions: Vertigo (ED) Additional Instructions: 1. Your MRI study demonstrates no evidence of a stroke. 2. Please take meclizine as prescribed for mild dizziness. 3. Return to the ED for markedly worsening neurologic symptoms, severe headache or other concerns. 4. Please schedule a follow-up appointment with your primary care provider for a recheck next week. Referrals: Fariha Townsend MD [Primary Care Provider] - As per Instructions Prescriptions: Meclizine HCl [Meclizine HCl 25 mg (RX,OTC)] 25 mg PO BID PRN #20 tab PRN Reason: for dizzyness
--- NOTE | 2017-05-27 09:14 | CPEKG ---
Heart Rate: 86 RR Interval: 698 QRSD Interval: 90 QT Interval: 368 QTC Interval: 440 QRS [place]: 54 T Wave [place]: 259 EKG Severity - ABNORMAL ECG - EKG Impression: ATRIAL FIBRILLATION EKG Impression: REPOL ABNRM SUGGESTS ISCHEMIA, DIFFUSE LEADS Electronically Signed By: Collin Ferrara 27-May-2017 09:50:48
[2017-05-27] MEDS ORDERED: GADOBUTROL 10 ML VIAL IVP ONE (09:24)
[2017-05-27 09:31] LABS: PLATELET COUNT 347 10^3/uL (150-400)
[2017-05-27] MEDS ORDERED: LORazepam 2 MG/ML INJ IVP ONE (09:41)
[2017-05-27 09:42] LABS: INR 2.23 (0.83-1.16); PROTIME(PATIENT) 24.7 SEC (12.0-15.0)
[2017-05-27 11:24] VITALS: O2SAT 92
[2017-05-27 11:50] VITALS: BP 111/83; PULSE 66; RESP 12; TEMP 98.1
== END 2017-05-27 11:51 | disposition home or self-care (01) ==
DX: R27.0 Ataxia, unspecified (principal); E11.9 Type 2 diabetes mellitus without complications; I50.9 Heart failure, unspecified; I25.10 Atherosclerotic heart disease of native coronary artery without angina pectoris; I25.2 Old myocardial infarction; Z79.01 Long term (current) use of anticoagulants; Z79.82 Long term (current) use of aspirin; Z86.73 Personal history of transient ischemic attack (TIA), and cerebral infarction without residual deficits; Z87.891 Personal history of nicotine dependence; Z79.84 Long term (current) use of oral hypoglycemic drugs
CPT/HCPCS: 70548; 70551; 93005; 96374; 99285; A9585; J2060

== ENCOUNTER 2017-06-25 10:08 | Emergency (ER) | payer OTHER ==
[2017-06-25 10:17] VITALS: RESP 16
--- NOTE | 2017-06-25 10:59 | CPEKG ---
Heart Rate: 89 RR Interval: 674 QRSD Interval: 88 QT Interval: 352 QTC Interval: 429 QRS [place]: 39 T Wave [place]: 259 EKG Severity - ABNORMAL ECG - EKG Impression: ATRIAL FIBRILLATION EKG Impression: VENTRICULAR PREMATURE COMPLEX EKG Impression: NONSPECIFIC REPOL ABNORMALITY, LATERAL LEADS Electronically Signed By: Renaldo Kam 25-Jun-2017 16:08:07
[2017-06-25 11:07] LABS: PLATELET COUNT 360 10^3/uL (150-400)
[2017-06-25 11:16] LABS: INR 2.28 (0.83-1.16); PROTIME(PATIENT) 25.1 SEC (12.0-15.0)
--- NOTE | 2017-06-25 12:27 | EDPHY ---
H & P Stated Complaint: R arm "locks up" since angioplasty 10/2016;int weakness R hand several days Time Seen by Provider: 06/25/17 10:38 HPI/ROS: Chief Complaint: Right hand"locking up" HPI: 71-year-old woman history of atrial fibrillation CVA in the past, on Coumadin is presenting with complaints of having difficulty using her right hand. The started around noontime on Monday. Patient states that she could not get her hand to do what she wanted to do. The symptoms lasted for several hours and then improved. Never went away. Yesterday she had similar mild symptoms but they did not filter changer the course today. This morning ate this morning she had again had worsening of the symptoms and felt like she could not reach her hand up to scratch her nose or manipulate objects with fine motor skills in the right hand. These have now improved she states she feels like she did yesterday. No other numbness or weakness. No falls. She is on Coumadin is been compliant. She was seen here last month with vertigo and had an extensive workup including MRI and MRA which were unremarkable. ROS: 10 point Review of Systems is negative except as noted in the HPI. Family History: non-contributory Physical Exam: Gen: Awake, Alert, No Distress HEENT: Nose: no rhinorrhea Eyes: PERRLA, EOMI Mouth: Moist mucosa Neck: Supple, no JVD Chest: nontender, lungs clear to auscultation Heart: S1, S2 normal, no murmur Abd: Soft, non-tender, no guarding Back: no CVA tenderness, no midline tenderness Ext: no edema, non-tender Skin: no rash Neuro: Mild right hand ataxia with fine finger movements, NIH stroke score is 0. - Personal History Current Tetanus Diphtheria and Acellular Pertussis (TDAP): Yes Tetanus Vaccine Date: < 10 YEARS - Medical/Surgical History Hx Asthma: No Hx Chronic Respiratory Disease: No Hx Diabetes: Yes Hx Cardiac Disease: Yes Hx Renal Disease: No Hx Cirrhosis: No Hx Alcoholism: No Hx HIV/AIDS: No Hx Splenectomy or Spleen Trauma: No Other PMH: chf, DM, OK, Stent, CAD, HLD, Afib, bladder lift, Rt KP, CVA, right carotid endarterectomy - Social History Smoking Status: Former smoker Constitutional: Initial Vital Signs Temperature (C) 36.6 C 06/25/17 10:14 Heart Rate 67 06/25/17 10:14 Respiratory Rate 16 06/25/17 10:14 Blood Pressure 171/107 H 06/25/17 10:14 O2 Sat (%) 97 06/25/17 10:14 O2 Delivery Mode Room Air Allergies/Adverse Reactions: diazepam [From Valium] Allergy (Verified 05/27/17 08:43) dexamethopram Allergy (Unknown, Uncoded 06/25/17 10:11) Home Medications: Medication Instructions Recorded Aspirin [Aspirin 325 mg (*)] 325 mg PO DAILY 04/17/14 Herbals/Supplements -Info Only 1 ea PO DAILY 04/17/14 Lansoprazole 30 mg PO DAILY 04/17/14 Levothyroxine [Synthroid 88 mcg 88 mcg PO DAILY@04 04/17/14 (*)] Warfarin Sodium [Coumadin 1MG (*)] 1 mg PO DAILY@16 04/17/14 metFORMIN HCL [Glucophage 500 mg 1,000 mg PO BIDMEAL 04/17/14 (*)] Digoxin [Lanoxin 125 mcg (RX)] 125 mcg PO DAILY10 #30 tab 10/11/15 Furosemide [Lasix 20 MG (*)] 20 mg PO DAILY 01/13/16 clonazePAM [Klonopin (*)] 0.5 mg PO DAILY PRN 11/16/16 Carvedilol [Coreg (*)] 12.5 mg PO BIDMEAL #120 tab 11/17/16 traZODone [traZODONE 50MG (*)] 50 mg PO 06/25/17 Medical Decision Making - Diagnostics Imaging Results: Imaging Impressions Chest X-Ray 06/25/17 11:01 Impression: 1. Findings consistent with airways disease are noted. 2. There may be minimal congestive heart failure without pulmonary edema. Head CT 06/25/17 11:01 Impression: Elderly brain with atrophy and probable white matter small vessel disease. There has been no significant change allowing for differences in technique compared to the recent MRI. Results called and discussed with Renaldo Kam MD on 06/25/2017 at 11:35 Head CTA 06/25/17 12:37 Impression: Hemodynamically significant stenosis of the left internal carotid artery distal to the bifurcation with associated calcified plaque. CT Angiography of the Head With Attention to the [place] Reason for examination: Possible CVA; evaluate for arterial occlusive disease. Technique: A spiral acquisition was performed from the base of the brain to the vertex during rapid intravenous administration of 85 mL of Isovue-370. This contrast volume was utilized for evaluation of the neck and head. Axial images are obtained at 0.6 mm thickness and the examination is reviewed on the workstation in multiple window and level settings. Sagittal and coronal reformats are performed and three-dimensional reformations are performed by the radiologist on the workstation. Dose reduction techniques were utilized. Findings: There is excellent arterial opacification. The great vessels at the base of the brain are normal in appearance. The anterior and middle cerebral arteries appear normal. The [place] is intact with both anterior and posterior communicating arteries identified. The basilar artery as well as posterior cerebral arteries are normal. No regions of stenosis are identified. No hemorrhages are seen and no vascular malformations are identified. No areas of abnormal perfusion are identified and there are no findings to suggest cortical ischemia. Impression: Normal CT angiography of the head with attention to the great vessels of the [place]. Results called and discussed with Renaldo Kam MD on 06/25/2017 at 14:34 Note: All stenoses are calculated using NASCET Criteria. Neck CTA 06/25/17 12:37 Impression: Hemodynamically significant stenosis of the left internal carotid artery distal to the bifurcation with associated calcified plaque. CT Angiography of the Head With Attention to the [place] Reason for examination: Possible CVA; evaluate for arterial occlusive disease. Technique: A spiral acquisition was performed from the base of the brain to the vertex during rapid intravenous administration of 85 mL of Isovue-370. This contrast volume was utilized for evaluation of the neck and head. Axial images are obtained at 0.6 mm thickness and the examination is reviewed on the workstation in multiple window and level settings. Sagittal and coronal reformats are performed and three-dimensional reformations are performed by the radiologist on the workstation. Dose reduction techniques were utilized. Findings: There is excellent arterial opacification. The great vessels at the base of the brain are normal in appearance. The anterior and middle cerebral arteries appear normal. The [place] is intact with both anterior and posterior communicating arteries identified. The basilar artery as well as posterior cerebral arteries are normal. No regions of stenosis are identified. No hemorrhages are seen and no vascular malformations are identified. No areas of abnormal perfusion are identified and there are no findings to suggest cortical ischemia. Impression: Normal CT angiography of the head with attention to the great vessels of the [place]. Results called and discussed with Renaldo Kam MD on 06/25/2017 at 14:34 Note: All stenoses are calculated using NASCET Criteria. Imaging: Discussed imaging studies w/ senior medical billing specialist Radiologist ED Course/Re-evaluation: Case discussed with Dr. Griffin, neurology. He is not recommending any changes at this time. Given the patient's recent MRI and MRA and negative CT scan today he is not recommending that the patient have any further evaluation at this time. Continue Coumadin and aspirin. She will see the patient in his office in follow-up. Certainly she should return to the emergency department her symptoms worsen. Received additional call from Dr. Griffin. He is recommending CTA of the head neck at this time. CTA neck noted. Patient is not complaining of worsening symptoms right hand. On repeat examination she has ataxia in her right hand with difficult to control. She has normal flexion extension strength. NIH score at this time is 1 4 a mild ataxia in her right upper extremity. Sensations intact. I have discussed again with Dr. Griffin. He is recommending admission for further evaluation. Possible General surgery consultation for endarterectomy. I have discussed with Dr. Aleman, hospitalist. He will admit to his service for further evaluation care. [id number] received an additional call from , he has discussed with , [facility] Neurology on the stroke team at [facility]. They feel that given the patient's TIA symptoms over the last 3 days and the stenosis on her CT angio today that the patient she would benefit from immediate carotid stenting. They would like the patient sent by aeromedical transport to [facility] to the emergency department for intervention. The patient currently is awake and alert. At most she has an NIH stroke score of 1 with a mild ataxia in her right hand. - Data Points Laboratory Results: Laboratory Results 06/25/17 10:50 06/25/17 10:50 06/25/17 06/25/17 06/25/17 10:50 10:50 10:50 WBC 6.90 10^3/uL 10^3/uL (3.80-9.50) RBC 4.35 10^6/uL 10^6/uL (4.18-5.33) Hgb 11.2 g/dL L g/dL (12.6-16.3) Hct 35.9 % L % (38.0-47.0) MCV 82.5 fL fL (81.5-99.8) MCH 25.7 pg L pg (27.9-34.1) MCHC 31.2 g/dL L g/dL (32.4-36.7) RDW 15.7 % H % (11.5-15.2) Plt Count 360 10^3/uL 10^3/uL (150-400) MPV 9.3 fL fL (8.7-11.7) Neut % (Auto) 60.9 % % (39.3-74.2) Lymph % (Auto) 20.9 % % (15.0-45.0) [place] % (Auto) 10.6 % % (4.5-13.0) Eos % (Auto) 6.1 % % (0.6-7.6) Baso % (Auto) 1.2 % % (0.3-1.7) Nucleat RBC Rel Count 0.0 % % (0.0-0.2) Absolute Neuts (auto) 4.21 10^3/uL 10^3/uL (1.70-6.50) Absolute Lymphs (auto) 1.44 10^3/uL 10^3/uL (1.00-3.00) Absolute Monos (auto) 0.73 10^3/uL 10^3/uL (0.30-0.80) Absolute Eos (auto) 0.42 10^3/uL H 10^3/uL (0.03-0.40) Absolute Basos (auto) 0.08 10^3/uL 10^3/uL (0.02-0.10) Absolute Nucleated RBC 0.00 10^3/uL 10^3/uL (0-0.01) Immature Gran % 0.3 % % (0.0-1.1) Immature Gran # 0.02 10^3/uL 10^3/uL (0.00-0.10) PT 25.1 SEC H SEC (12.0-15.0) INR 2.28 H (0.83-1.16) APTT 39.4 SEC H SEC (23.0-38.0) Sodium 140 mEq/L mEq/L (135-145) Potassium 4.8 mEq/L mEq/L (3.5-5.2) Chloride 101 mEq/L mEq/L (97-110) Carbon Dioxide 24 mEq/l mEq/l (22-31) Anion Gap 15 mEq/L mEq/L (8-16) BUN 9 mg/dL mg/dL (7-23) Creatinine 0.6 mg/dL mg/dL (0.6-1.0) Estimated GFR > 60 Glucose 110 mg/dL H mg/dL (70-100) Calcium 9.7 mg/dL mg/dL (8.5-10.4) Troponin I < 0.012 ng/mL ng/mL (0.000-0.034) Departure - Departure Disposition: Acute Care Hospital Not [facility] Clinical Impression: Transient cerebral ischemia
--- NOTE | 2017-06-25 12:32 | GCON ---
[f rep st] CONSULTATION EMERGENCY DEPARTMENT PHONE CONSULT The patient is a 71-year-old lady with a previous history of right-sided carotid endarterectomy. She was just recently in the ED for vertigo symptoms and had an MRI brain which showed no acute findings and atrophy related to microvascular changes and age. She also had an MRA of the neck at that time, which showed mild stenosis in the left ICA measuring 40% to 50% and a widely patent right carotid artery post endarterectomy. She has atrial fibrillation and is on warfarin with a therapeutic INR of 2.28 + Aspirin 325 mg daily. She has had a symptom of right-hand dyscoordination, isolated, 2 or 3 days ago, which resolved on its own, and she had dyscoordination this morning in the right hand again, which resolved as well. Her NIH score is 0 per the ER physician. The patient was offered admission but declined and instead requested that the emergency department staff discuss with Neurology. We reviewed her underlying diagnosis of AFib, being on warfarin + ASA, and being on therapeutic INR. We also reviewed that she just had MR angiography of the neck last month, which was negative. Today's head CT shows no hemorrhage, fortunately, and no other acute changes. There was no significant difference of the MRI allowing for differences in technique compared to the study just done in May. We discussed the case at length. I recommended CTA head/neck - which showed that left internal carotid artery stenosis is hemodynamically significant at 70-80%. Intracranial CTA was negative. In addition, the patient had 3rd episode of right UE ataxia while in ED. Case discussed with [place] neurology (Dr. Nguyen) who recommended transfer for further evaluation for possible emergent stenting. I let Dr Kam know (ED attending) who is arranging helicopter transport to [place]. /[id number]/MODL MTDD
[2017-06-25] MEDS ORDERED: IOPAMIDOL (ISOVUE 370) 100 ML BTL IV ONE (12:44)
[2017-06-25 13:54] VITALS: O2SAT 98
[2017-06-25 15:41] VITALS: BP 150/98; PULSE 78; TEMP 97.7
--- NOTE | 2017-06-25 15:49 | PDHOSCONS ---
History and Physical - Chief Complaint R Arm weakness, discoordination - History of Present Illness 71 yo female with hx of TIA, CVA, right sided endarterectomy presented to the ED with 2-3 days of right hand weakness. She had recent w/u to include Brain MRI and MRA neck which were unremarkable. She was initially going to be discharged but she had repeat symptoms in the E.D. and a CTA Head/neck were obtained which shows hemodynamically significant stenosis of left internal carotid artery. She is seen in the E.D., she is currently not having symptoms. She is on Warfarin and INR is 2.25. She is also on a full dose Aspirin She is hypertensive PMHx: Vertigo, Afib, AC, CHF, DM, OR, CAD, HLD, CVA PSHx: Bladder lift, Right Endarterectomy, R KP Soc: previous tobacco abuse, daily ETOH (one drink) FmHx: unknown History Information - Allergies/Home Medication List Allergies/Adverse Reactions: diazepam [From Valium] Allergy (Verified 05/27/17 08:43) dexamethopram Allergy (Unknown, Uncoded 06/25/17 10:11) Home Medications: Aspirin [Aspirin 325 mg (*)] 325 mg PO DAILY 04/17/14 [Last Taken 11/16/16] Herbals/Supplements -Info Only 1 ea PO DAILY 04/17/14 [Last Taken 01/13/16 08:00 ] Lansoprazole 30 mg PO DAILY 04/17/14 [Last Taken 11/15/16] Levothyroxine [Synthroid 88 mcg (*)] 88 mcg PO DAILY@04 04/17/14 [Last Taken ] Warfarin Sodium [Coumadin 1MG (*)] 1 mg PO DAILY@16 04/17/14 [Last Taken ] metFORMIN HCL [Glucophage 500 mg (*)] 1,000 mg PO BIDMEAL 04/17/14 [Last Taken 11/16/16] Furosemide [Lasix 20 MG (*)] 20 mg PO DAILY 01/13/16 [Last Taken 11/15/16] clonazePAM [Klonopin (*)] 0.5 mg PO DAILY PRN 11/16/16 [Last Taken Unknown] traZODone [traZODONE 50MG (*)] 50 mg PO 06/25/17 [Last Taken Unknown] I have personally reviewed and updated: medical history, social history - Social History Smoking Status: Former smoker Review of Systems Review of Systems: ROS: 10pt was reviewed & negative except for what was stated in HPI & below Physical Exam Physical Exam: Temp Pulse Resp BP Pulse Ox 36.5 C 78 16 150/98 H 98 06/25/17 15:39 06/25/17 15:39 06/25/17 15:39 06/25/17 15:39 06/25/17 15:39 Constitutional: no apparent distress Eyes: PERRL, EOMI Ears, Nose, Mouth, Throat: moist mucous membranes, hearing normal Cardiovascular: regular rate and rhythym, No edema Respiratory: no respiratory distress, no rales or rhonchi Gastrointestinal: normoactive bowel sounds Skin: warm Neurologic: AAOx3, weakness (right hand), CN II-XII Intact, No facial droop Psychiatric: interacting appropriately Lymph, Heme, Immunologic: No petechiae Lab Data & Imaging Review 06/25/17 10:50 06/25/17 10:50 WBC 6.90 10^3/uL (3.80-9.50) 06/25/17 10:50 RBC 4.35 10^6/uL (4.18-5.33) 06/25/17 10:50 Hgb 11.2 g/dL (12.6-16.3) L 06/25/17 10:50 Hct 35.9 % (38.0-47.0) L 06/25/17 10:50 MCV 82.5 fL (81.5-99.8) 06/25/17 10:50 MCH 25.7 pg (27.9-34.1) L 06/25/17 10:50 MCHC 31.2 g/dL (32.4-36.7) L 06/25/17 10:50 RDW 15.7 % (11.5-15.2) H 06/25/17 10:50 Plt Count 360 10^3/uL (150-400) 06/25/17 10:50 MPV 9.3 fL (8.7-11.7) 06/25/17 10:50 Neut % (Auto) 60.9 % (39.3-74.2) 06/25/17 10:50 Lymph % (Auto) 20.9 % (15.0-45.0) 06/25/17 10:50 [place] % (Auto) 10.6 % (4.5-13.0) 06/25/17 10:50 Eos % (Auto) 6.1 % (0.6-7.6) 06/25/17 10:50 Baso % (Auto) 1.2 % (0.3-1.7) 06/25/17 10:50 Nucleat RBC Rel Count 0.0 % (0.0-0.2) 06/25/17 10:50 Absolute Neuts (auto) 4.21 10^3/uL (1.70-6.50) 06/25/17 10:50 Absolute Lymphs (auto) 1.44 10^3/uL (1.00-3.00) 06/25/17 10:50 Absolute Monos (auto) 0.73 10^3/uL (0.30-0.80) 06/25/17 10:50 Absolute Eos (auto) 0.42 10^3/uL (0.03-0.40) H 06/25/17 10:50 Absolute Basos (auto) 0.08 10^3/uL (0.02-0.10) 06/25/17 10:50 Absolute Nucleated RBC 0.00 10^3/uL (0-0.01) 06/25/17 10:50 Immature Gran % 0.3 % (0.0-1.1) 06/25/17 10:50 Immature Gran # 0.02 10^3/uL (0.00-0.10) 06/25/17 10:50 PT 25.1 SEC (12.0-15.0) H 06/25/17 10:50 INR 2.28 (0.83-1.16) H 06/25/17 10:50 APTT 39.4 SEC (23.0-38.0) H 06/25/17 10:50 Sodium 140 mEq/L (135-145) 06/25/17 10:50 Potassium 4.8 mEq/L (3.5-5.2) 06/25/17 10:50 Chloride 101 mEq/L (97-110) 06/25/17 10:50 Carbon Dioxide 24 mEq/l (22-31) 06/25/17 10:50 Anion Gap 15 mEq/L (8-16) 06/25/17 10:50 BUN 9 mg/dL (7-23) 06/25/17 10:50 Creatinine 0.6 mg/dL (0.6-1.0) 06/25/17 10:50 Estimated GFR > 60 06/25/17 10:50 Glucose 110 mg/dL (70-100) H 06/25/17 10:50 Calcium 9.7 mg/dL (8.5-10.4) 06/25/17 10:50 Troponin I < 0.012 ng/mL (0.000-0.034) 06/25/17 10:50 Assessment & Plan Assessment: #Acute symptomatic Left internal artery stenosis with right hand weakness and Ataxia #Chronic AC #Afib Plan: -Initially the plan was to admit her, start Heparin, reverse INR, IVF, and have her set up for left sided endarterectomy with Dr. Mauricio tomorrow. She is maxed out medically as she is on full dose anticoagulation and Aspirin -I discussed the plan with Neurology who was alarmed by the ongoing symptoms and discussed the case with [facility] and a decision to transfer via flight emergently to [facility] has been made. She will get a stent today. total critical care time is 45 mins
== END 2017-06-25 16:07 | disposition short-term general hospital (02) ==
LOC: UNDOADMIN 15:22
DX: G45.9 Transient cerebral ischemic attack, unspecified (principal); E11.9 Type 2 diabetes mellitus without complications; I25.10 Atherosclerotic heart disease of native coronary artery without angina pectoris; I50.9 Heart failure, unspecified; I25.2 Old myocardial infarction; Z79.01 Long term (current) use of anticoagulants; Z95.5 Presence of coronary angioplasty implant and graft; Z87.891 Personal history of nicotine dependence; Z79.82 Long term (current) use of aspirin; Z79.84 Long term (current) use of oral hypoglycemic drugs
CPT/HCPCS: Q9967

== ENCOUNTER 2017-08-20 10:39 | Emergency (ER) | payer OTHER ==
--- NOTE | 2017-08-20 11:04 | EDPHY ---
H & P Stated Complaint: C/O RUQ pain since Mon; no n/v/d or constipation Time Seen by Provider: 08/20/17 11:02 - Personal History Current Tetanus Diphtheria and Acellular Pertussis (TDAP): Yes Tetanus Vaccine Date: < 10 YEARS - Medical/Surgical History Hx Asthma: No Hx Chronic Respiratory Disease: No Hx Diabetes: Yes Hx Cardiac Disease: Yes Hx Renal Disease: No Hx Cirrhosis: No Hx Alcoholism: No Hx HIV/AIDS: No Hx Splenectomy or Spleen Trauma: No Other PMH: chf, DM, CO, Stent, CAD, HLD, Afib, bladder lift, Rt KP, CVA, right carotid endarterectomy. choley - Social History Smoking Status: Former smoker Constitutional: Initial Vital Signs Temperature (C) 36.6 C 08/20/17 10:41 Heart Rate 83 08/20/17 10:41 Respiratory Rate 18 08/20/17 10:41 Blood Pressure 152/88 H 08/20/17 10:41 O2 Sat (%) 94 08/20/17 10:41 O2 Delivery Mode Room Air Allergies/Adverse Reactions: diazepam [From Valium] Allergy (Verified 08/20/17 10:40) dexamethopram Allergy (Unknown, Uncoded 06/25/17 10:11) Home Medications: Medication Instructions Recorded Aspirin [Aspirin 325 mg (*)] 325 mg PO DAILY 04/17/14 Herbals/Supplements -Info Only 1 ea PO DAILY 04/17/14 Lansoprazole 30 mg PO DAILY 04/17/14 Levothyroxine [Synthroid 88 mcg 88 mcg PO DAILY@04/17/14 (*)] Warfarin Sodium [Coumadin 1MG (*)] 1 mg PO DAILY@04/17/14 metFORMIN HCL [Glucophage 500 mg 1,000 mg PO BIDMEAL 04/17/14 (*)] Furosemide [Lasix 20 MG (*)] 20 mg PO DAILY 01/13/16 Carvedilol [Coreg (*)] 12.5 mg PO BIDMEAL #120 tab 11/17/16 Medical Decision Making - Diagnostics Imaging Results: Imaging Impressions Abdomen CT 08/20/17 11:21 Impression: 1. Negative for diverticulitis or appendicitis. 2. Suspect hepatic steatosis. 3. See above report for additional findings. Results called and discussed with Juan Porter MD on August 20, 2017 at 1252 hours. Imaging: Discussed imaging studies w/ insole bottom filler Radiologist, I viewed and interpreted images myself ED Course/Re-evaluation: CHIEF COMPLAINT: Right-sided abdominal pain HISTORY OF PRESENT ILLNESS: The patient is a 71 y/o female arriving with her complaining of waxing and waning RUQ abdominal pain onset late Monday night, 2 days ago. Pain was moderate for about 12 hours and then eased off to a dull ache until early this morning when it became lxujgtqi-rj-yjqagz again. Her pain is worst in the RLQ with palpation and she describes inability to get comfortable. She denies fever, vomiting, diarrhea, sore throat, urinary symptoms , chest pain, dyspnea. A colonoscopy last year revealed diverticula, but she denies history of diverticulitis. History of cholecystectomy. REVIEW OF SYSTEMS: A 10 point review of systems was performed and is negative with the exception of the elements mentioned in the history of present illness. PHYSICAL EXAM: HR, BP, O2 Sat, RR. Temp noted General Appearance: Alert, well hydrated, appropriate, and non-toxic appearing. Head: Atraumatic without scalp tenderness or obvious injury Eyes: Pupils equal, round, reactive to light and accommodation, EOMI, no trauma , no injection. Nose: Atraumatic, no rhinorrhea, clear. Throat: Mucus membranes moist. Neck: Supple, non-tender, no lymphadenopathy. Respiratory: No retractions, no distress, no wheezes, and no accessory muscle use. Lungs are clear to auscultation bilaterally. Cardiovascular: Regular rate and rhythm, no murmurs, rubs, or gallops. Good capillary refill all extremities. Gastrointestinal: Abdomen is soft, RLQ tenderness, non-distended, no masses, no rebound, no guarding, no peritoneal signs. Musculoskeletal: Normal active ROM of all extremities, atraumatic. Neurological: Alert, appropriate, and interactive. The patient has non-focal cranial nerves, motor, sensory, and cerebellar exam. Skin: No rashes, good turgor, no nodules on palpation. PAST MEDICAL HISTORY: CHF, diabetes, diverticula seen on colonoscopy, CO, CAD, hyperlipidemia, atrial fibrillation - Warfarin, CVA PAST SURGICAL HISTORY: Stent, bladder lift, right carotid endarterectomy, carotid stents placed 6 weeks ago at [facility], cholecystectomy SOCIAL HISTORY: at bedside. Aquarium Tank Attendant: Dr. Sheriff. DIAGNOSTICS/PROCEDURES/CRITICAL CARE TIME: Abdominal CT: no obvious cause for pain identified DIFFERENTIAL DIAGNOSIS: The differential diagnosis for the patient's abdominal pain included but was not limited to ovarian cyst, pelvic inflammatory disease, ovarian torsion, urinary tract infection, ectopic , cholecystitis, and appendicitis. MEDICAL DECISION MAKING: This is an anticoagulated 71 y/o female with multiple comorbidities who presents with a 2-day history of right-sided abdominal pain that worsened this morning. She has moderate RLQ tenderness on exam suspicious for appendicitis or possibly cecal diverticulitis. She is not febrile here. Plan for IV, labs, abdominal CT, and symptom management. 4mg IV Zofran, 0.5mg IV Dilaudid, and 1L IV NS ordered. Lab show normal creatinine 0.6, appropriate anticoagulation with an INR of 2.5, and a normal WBC. CT is negative for acute process. UA still pending. Reassessed patient and discussed findings. I've found no definitive nor dangerous cause for her pain. Her UA is negative. She did have some mild constipation on CT that could be contributing to symptoms. She is feeling well currently and is comfortable being discharged home. Recommended Tylenol as needed for pain. Strict return and follow up instructions discussed. - Data Points Laboratory Results: Laboratory Results 08/20/17 11:00 08/20/17 11:00 08/20/17 08/20/17 08/20/17 12:15 11:29 11:00 WBC RBC Hgb POC Hgb 10.9 gm/dL L gm/dL (12.6-16.3) Hct POC Hct 32 % L % (38-47) MCV MCH MCHC RDW Plt Count MPV Neut % (Auto) Lymph % (Auto) [place] % (Auto) Eos % (Auto) Baso % (Auto) Nucleat RBC Rel Count Absolute Neuts (auto) Absolute Lymphs (auto) Absolute Monos (auto) Absolute Eos (auto) Absolute Basos (auto) Absolute Nucleated RBC Immature Gran % Immature Gran # PT 27.2 SEC H SEC (12.0-15.0) INR 2.53 H (0.83-1.16) APTT 41.6 SEC H SEC (23.0-38.0) POC Sodium 140 mEq/L mEq/L (135-145) Sodium POC Potassium 4.5 mEq/L mEq/L (3.3-5.0) Potassium POC Chloride 101 mEq/L mEq/L (97-110) Chloride Carbon Dioxide Anion Gap POC BUN 12 mg/dL mg/dL (7-23) BUN Creatinine POC Creatinine 0.6 mg/dL mg/dL (0.6-1.0) Estimated GFR Glucose POC Glucose 112 mg/dL H mg/dL (70-100) Calcium Total Bilirubin Conjugated Bilirubin Unconjugated Bilirubin AST ALT Alkaline Phosphatase Total Protein Albumin Lipase Urine Color PALE YELLOW Urine Appearance CLEAR Urine pH 5.0 (5.0-7.5) Ur Specific [place] 1.010 (1.002-1.030) Urine Protein NEGATIVE (NEGATIVE) Urine Ketones NEGATIVE (NEGATIVE) Urine Blood NEGATIVE (NEGATIVE) Urine Nitrate NEGATIVE (NEGATIVE) Urine Bilirubin NEGATIVE (NEGATIVE) Urine Urobilinogen NEGATIVE EU EU (0.2-1.0) Ur Leukocyte Esterase NEGATIVE (NEGATIVE) Urine RBC NONE SEEN /hpf /hpf (0-3) Urine WBC NONE SEEN /hpf /hpf (0-3) Ur Epithelial Cells TRACE /lpf /lpf (NONE-1+) Hyaline Casts 1-5 /lpf /lpf (0-1) Urine Glucose NEGATIVE (NEGATIVE) 08/20/17 08/20/17 11:00 11:00 WBC 7.64 10^3/uL 10^3/uL (3.80-9.50) RBC 4.32 10^6/uL 10^6/uL (4.18-5.33) Hgb 10.7 g/dL L g/dL (12.6-16.3) POC Hgb Hct 35.1 % L % (38.0-47.0) POC Hct MCV 81.3 fL L fL (81.5-99.8) MCH 24.8 pg L pg (27.9-34.1) MCHC 30.5 g/dL L g/dL (32.4-36.7) RDW 17.0 % H % (11.5-15.2) Plt Count 359 10^3/uL 10^3/uL (150-400) MPV 9.6 fL fL (8.7-11.7) Neut % (Auto) 65.4 % % (39.3-74.2) Lymph % (Auto) 18.3 % % (15.0-45.0) [place] % (Auto) 10.3 % % (4.5-13.0) Eos % (Auto) 4.8 % % (0.6-7.6) Baso % (Auto) 0.9 % % (0.3-1.7) Nucleat RBC Rel Count 0.0 % % (0.0-0.2) Absolute Neuts (auto) 4.99 10^3/uL 10^3/uL (1.70-6.50) Absolute Lymphs (auto) 1.40 10^3/uL 10^3/uL (1.00-3.00) Absolute Monos (auto) 0.79 10^3/uL 10^3/uL (0.30-0.80) Absolute Eos (auto) 0.37 10^3/uL 10^3/uL (0.03-0.40) Absolute Basos (auto) 0.07 10^3/uL 10^3/uL (0.02-0.10) Absolute Nucleated RBC 0.00 10^3/uL 10^3/uL (0-0.01) Immature Gran % 0.3 % % (0.0-1.1) Immature Gran # 0.02 10^3/uL 10^3/uL (0.00-0.10) PT INR APTT POC Sodium Sodium 141 mEq/L mEq/L (135-145) POC Potassium Potassium 4.9 mEq/L mEq/L (3.5-5.2) POC Chloride Chloride 101 mEq/L mEq/L (97-110) Carbon Dioxide 26 mEq/l mEq/l (22-31) Anion Gap 14 mEq/L mEq/L (8-16) POC BUN BUN 11 mg/dL mg/dL (7-23) Creatinine 0.7 mg/dL mg/dL (0.6-1.0) POC Creatinine Estimated GFR > 60 Glucose 108 mg/dL H mg/dL (70-100) POC Glucose Calcium 9.8 mg/dL mg/dL (8.5-10.4) Total Bilirubin 0.7 mg/dL mg/dL (0.1-1.4) Conjugated Bilirubin 0.5 mg/dL mg/dL (0.0-0.5) Unconjugated Bilirubin 0.2 mg/dL mg/dL (0.0-1.1) AST 47 IU/L H IU/L (14-46) ALT 54 IU/L H IU/L (9-52) Alkaline Phosphatase 62 IU/L IU/L (38-126) Total Protein 8.2 g/dL g/dL (6.3-8.2) Albumin 4.6 g/dL g/dL (3.5-5.0) Lipase 90 IU/L IU/L (23-300) Urine Color Urine Appearance Urine pH Ur Specific [place] Urine Protein Urine Ketones Urine Blood Urine Nitrate Urine Bilirubin Urine Urobilinogen Ur Leukocyte Esterase Urine RBC Urine WBC Ur Epithelial Cells Hyaline Casts Urine Glucose Medications Given: Discontinued Medications Hydromorphone HCl (Dilaudid) 0.5 mg IVP EDNOW ONE Stop: 08/20/17 11:22 Last Admin: 08/20/17 11:42 Dose: 0.5 mg Sodium Chloride (Ns) 1,000 mls @ 0 mls/hr IV EDNOW ONE; Wide Open PRN Reason: Protocol Stop: 08/20/17 11:22 Last Admin: 08/20/17 11:38 Dose: 1,000 mls Ondansetron HCl (Zofran) 4 mg IVP EDNOW ONE Stop: 08/20/17 11:22 Last Admin: 08/20/17 11:39 Dose: 4 mg Point of Care Test Results: 08/20/17 11:29 POC Sodium 140 POC Potassium 4.5 POC Chloride 101 POC BUN 12 POC Creatinine 0.6 POC Glucose 112 H Departure - Departure Disposition: Home, Routine, Self-Care Clinical Impression: Abdominal pain Qualifiers: Abdominal location: right lower quadrant Qualified Code(s): R10.31 - Right lower quadrant pain Condition: Good Instructions: Acute Abdominal Pain (ED) Additional Instructions: Follow up with your primary care provider tomorrow unless your symptoms have completely resolved. Return to the ED for severe pain, uncontrollable vomiting, fever, or any other worsening of condition. Referrals: Fariha Townsend MD [Primary Care Provider] - As per Instructions Report Scribed for: Juan Porter Report Scribed by: Deborah Buchanan Date of Report: 08/20/17 Time of Report: 11:22
[2017-08-20] MEDS ORDERED: HYDROmorphONE/DILAUDID 2 MG/ML INJ IVP ONE (11:21)
[2017-08-20] MEDS ORDERED: ONDANSETRON 4 MG/2 ML VIAL IVP ONE (11:21)
[2017-08-20] MEDS ORDERED: NS 1,000 ML IV ONE (11:21)
[2017-08-20 11:27] LABS: PLATELET COUNT 359 10^3/uL (150-400)
[2017-08-20] MEDS ORDERED: IOPAMIDOL (ISOVUE-300) 100 ML BTL ONE (11:32)
[2017-08-20 11:45] LABS: INR 2.53 (0.83-1.16); PROTIME(PATIENT) 27.2 SEC (12.0-15.0)
[2017-08-20 13:29] VITALS: BP 131/65
== END 2017-08-20 13:20 | disposition home or self-care (01) ==
DX: R10.31 Right lower quadrant pain (principal); E11.9 Type 2 diabetes mellitus without complications; I25.2 Old myocardial infarction; I50.9 Heart failure, unspecified; I25.10 Atherosclerotic heart disease of native coronary artery without angina pectoris; E86.9 Volume depletion, unspecified; Z79.01 Long term (current) use of anticoagulants; Z79.82 Long term (current) use of aspirin; Z95.5 Presence of coronary angioplasty implant and graft; Z90.49 Acquired absence of other specified parts of digestive tract; Z86.73 Personal history of transient ischemic attack (TIA), and cerebral infarction without residual deficits; Z87.891 Personal history of nicotine dependence
CPT/HCPCS: 74177; 96361; 96374; 96375; 99285; J1170; J2405; Q9967; 82947-QW

== ENCOUNTER → 2017-09-29 | Outpatient (CLI) | payer OTHER | LOC: FIMAGING 06:51 | DX: I65.22 Occlusion and stenosis of left carotid artery (principal) ==

== ENCOUNTER → 2017-11-09 | Outpatient (CLI) | payer OTHER | LOC: FIMAGING 12:33 | PROVIDERS: ATTEND Family Medicine | DX: Z12.31 Encounter for screening mammogram for malignant neoplasm of breast (principal); Z80.3 Family history of malignant neoplasm of breast ==

== ENCOUNTER → 2018-01-05 | Outpatient (CLI) | payer OTHER | LOC: FIMAGING 09:36 | PROVIDERS: ATTEND Family Medicine | DX: J98.09 Other diseases of bronchus, not elsewhere classified (principal) ==

== ENCOUNTER → 2018-01-25 | Outpatient (CLI) | payer OTHER ==
--- NOTE | 2018-01-25 15:28 | ECHO ---
[email or web address] [address] Main: [phone] Fax: Transthoracic Echocardiogram Name: LEI BURTON MR#: [id number] Study Date: 01/25/2018 Study Time: 01:47 PM Date of : 1945 Age: 72 year(s) Height: 165.1 cm (65 in.) Weight: 83.69 kg (184.5 lb.) BSA: 1.91 m2 Gender: Female Examination: Echo Indication: CHF/elevated lab test result/hypoxia/hx stents Image Quality: Excellent Contrast: Requested by: Hemant Muñoz BP: / Heart Rate: Rhythm: Indication: CHF/elevated lab test result/hypoxia/hx stents Procedure Staff Geospatial Intelligence Analyst: Alyssa Duff RD Reading Physician: Jocelynn Baptiste MD Requesting Provider: Conclusions: Normal size left ventricle. Borderline concentric LV hypertrophy. Normal global systolic LV function. The ejection fraction is estimated to be 55-60 %. No regional wall motion abnormality. Normal size right ventricle. Normal RV function. The left atrium is severely dilated. The right atrium is moderately dilated. Mild mitral valve regurgitation is present. Severe calcific aortic valve stenosis. Peak velocity across the aortic valve is 4 m/s. AV max PG is 65mmHG. AV mean PG is 37mmHG. Severe aortic stenosis by dimension less index. BONNY is 0.96 cm2. . Moderate to severe tricuspid valve regurgitation. The pulmonary artery pressure is mildly increased. RVSP is 42-47mmHG.. Compared with 11/17/2016 mild pulmonary hypertension is not present. Aortic stenosis has progressed significantly. Measurements: Chambers Valvular Assessment AV/MV Valvular Assessment TV/PV Normal Normal Normal Name Value Range Name Value Range Name Value Range IVSd (2D): 0.8 cm (0.6 cm-1.1 AV Vmax: 4.01 m/s (1 m/s-1.7 TR Vmax: 3.06 mm/s ( - ) cm) m/s) TR PGmax: 37 mmHg ( - ) LVDd (2D): 4.7 cm (3.9 cm-5.3 AV meanP mmHg ( - ) syst. PAP: 42 mmHg ( - ) cm) BONNY (VTI): 1.0 cm ( - ) LVDs (2D): 3.3 cm (2.1 cm-4 MV E Vmax: 1.10 m/s ( - ) cm) MV A Vmax: 0.24 m/s ( - ) LVPWd (2D): 1.0 cm ( - ) Patient: LEI BURTON Study Date: 01/25/2018 Page 1 of 2 01:47 PM LVOTd 2.2 cm 2.2 cm mm MV E/A: 4.58 ( - ) LVEF (BP): 60 % (>=55 %) EF Range: 55-60 % Continued Measurements: Chambers Valvular Assessment AV/MV Valvular Assessment TV/PV Name Value Name Value Name Value LADs: 4.7 cm MV E' Septal: 0.08 m/s CVP (est.): 5 mmHg LADs Lon.3 cm MV E/E' Septal: 13.40 LA Area: 28.1 cm2 MV E/E' Lateral: 9.70 LA Volume: 101 ml LA Volume Index: 52.9 ml/m2 Findings: Left Ventricle: Normal size left ventricle. Borderline concentric LV hypertrophy. Normal global systolic LV function. The ejection fraction is estimated to be 55-60 %. No regional wall motion abnormality. Diastolic dysfunction is indeterminate.. Right Ventricle: Normal size right ventricle. Normal RV function. Left Atrium: The left atrium is severely dilated. Right Atrium: The right atrium is moderately dilated. Mitral Valve: Mild mitral annular calcification. Mild mitral valve leaflet calcification is present. Mild mitral valve regurgitation is present. Aortic Valve: Severe aortic valve calcification is present. Severe calcific aortic valve stenosis. Peak velocity across the aortic valve is 4 m/s. AV max PG is 65mmHG. AV mean PG is 37mmHG. Severe aortic stenosis by dimension less index. BONNY is 0.96 cm2. . Tricuspid Valve: Moderate to severe tricuspid valve regurgitation. The pulmonary artery pressure is mildly increased. RVSP is 42-47mmHG.. Pulmonic Valve: The pulmonic valve is normal in appearance and function. Aorta: The aorta is normal. Pericardium: No pericardial effusion. Exam Comments: Lots of ectopy noted during this exam. Previous echo of 11/14 reported AV mean of 16mmHG.. (No Signature Object) Patient: LEI BURTON Study Date: 01/25/2018 Page 2 of 2 01:47 PM [id number]
== END ==
LOC: FCP 13:21
PROVIDERS: ATTEND Internal Medicine Cardiovascular Disease
DX: I08.3 Combined rheumatic disorders of mitral, aortic and tricuspid valves (principal); I50.9 Heart failure, unspecified

== ENCOUNTER 2018-01-29 08:18 | Day surgery (SDC) | payer OTHER ==
[2018-01-29] MEDS ORDERED: diphenhydrAMINE 25 MG CAP PO ONE ×2 (08:21→08:29)
[2018-01-29] MEDS ORDERED: NITROGLYCERIN 0.4 MG BTL SL PRN ×2 (08:21→09:42)
[2018-01-29] MEDS ORDERED: ASPIRIN EC 325 MG TAB PO ONE ×2 (08:21→08:29)
[2018-01-29] MEDS ORDERED: NS 1,000 ML IV SCH (08:21)
[2018-01-29] MEDS ORDERED: FAMOTIDINE 20 MG TAB PO ONE (08:21)
[2018-01-29] MEDS ORDERED: ACETAMINOPHEN 325 MG TAB PO PRN (08:21)
[2018-01-29] MEDS ORDERED: FAMOTIDINE 20 MG TAB ONE (08:29)
[2018-01-29] MEDS ORDERED: fentaNYL 100 MCG/2 ML INJ ONE (08:48)
[2018-01-29] MEDS ORDERED: IOPAMIDOL (ISOVUE-370) 150 ML BTL IV ONE (08:48)
[2018-01-29] MEDS ORDERED: LIDOCAINE 1% 300 MG/30 ML SDV ONE (08:48)
[2018-01-29 08:56] LABS: PLATELET COUNT 327 10^3/uL (150-400)
--- NOTE | 2018-01-29 08:59 | PDPROPOC ---
Sedation Plan of Care Sedation Plan of Care: mental status noted, patient educated of risks, benefits , alternatives, patient can tolerate sedation ASA Classification: ASA 2 Planned drugs: fentanyl Mallampati Score: Class 2 Mallampati Reference Image: Patient passed 3-3-2 rule?: Yes
--- NOTE | 2018-01-29 08:59 | PDHPUP ---
History & Physical Update H&P update statement: This history and physical update is based on an assessment of the patient which was completed after admission or registration (within 24 hours), but prior to the surgery/procedure. H&P update: H&P reviewed & patient examined, no change in patient's condition since H&P completed
[2018-01-29] MEDS ORDERED: MIDAZOLAM 2 MG/2 ML VIAL ONE (09:16)
--- NOTE | 2018-01-29 09:20 | CPEKG ---
Test Reason : OPEN Blood Pressure : / mmHG Vent. Rate : 101 BPM Atrial Rate : 116 BPM P-R Int : 154 ms QRS Dur : 095 ms QT Int : 360 ms P-R-T Axes : 000 056 -69 degrees QTc Int : 467 ms Atrial fibrillation Repol abnrm suggests ischemia, diffuse leads No significant change was found compared with 06/25/2017 Confirmed by Jocelynn Baptiste ([id number]) on 01/29/2018 9:20:17 AM Referred By: Confirmed By:Jocelynn Baptiste
[2018-01-29 09:27] LABS: INR 1.84 (0.83-1.16); PROTIME(PATIENT) 21.3 SEC (12.0-15.0)
[2018-01-29] MEDS ORDERED: ONDANSETRON 4 MG/2 ML VIAL IVP PRN (09:42)
[2018-01-29] MEDS ORDERED: ATROPINE SULFATE 1 MG/10 ML SYR IVP PRN (09:42)
[2018-01-29] MEDS ORDERED: HYDROCODONE/APAP 5/325 TAB PO PRN (09:42)
[2018-01-29] MEDS ORDERED: OXYCODONE/APAP 5/325 TAB PO PRN (09:42)
--- NOTE | 2018-01-29 11:33 | CPIP ---
DATE OF PROCEDURE: 01/29/2018 INDICATION FOR PROCEDURE: Chest pain, shortness of breath. PROCEDURE: 1. Nonselective left 7-Spanish sheathogram. 2. 7-Spanish sheath left common femoral vein. 3. Right heart catheterization with Tarlton-Heidy catheter. 4. Bilateral selective coronary angiography. 5. Left subclavian artery angiography. 6. Abdominal angiography. HISTORY: Briefly, this is a 72-year-old female with history of worsening shortness of breath and srikanth st pain who had noninvasive evidence of severe aortic stenosis. Given these findings, the patient co nsented for right and left heart catheterization in anticipation for eventual AVR. DESCRIPTION OF PROCEDURE: After informed consent was obtained, the patient was brought to [facility] where the left groin was prepped and draped in sterile fashion. Using lidocaine, a short 6-Fren ch sheath was introduced in the left common femoral artery verified angiographically 7-Kushal nch sheath left common femoral vein. Through the 7-Spanish sheath, a right heart catheter was advance d. Wedge pressure was mean of 25 with a V-wave of 41. PA pressure systolic PA pressure 6 0, diastolic 24, mean of 37. RV pressure is 60, diastolic 9, 18, RA pressure mean of 18, V-wave of 19. Cardiac output was measured to be 2.3 by [place] with a cardiac index 93%. PA sat was 34%. After this was performed, the Tarlton-Heidy catheter was removed. The JL4 catheter was ad vanced of the left coronary artery. Images of the left coronary artery revealed normal left main. L eft circumflex artery gave off a medium to large marginal 1 proximally terminating to a marginal 2 an d marginal 3 artery distally which were all healthy and free of disease. The LAD had a long stent in its proximal portion, which appeared to be widely patent. There were small diagonal arteries coming off the LAD which appeared to be patent. Distally the LAD appeared to be healthy and free of diseas e. After these images were obtained the JL4 catheter was removed. A JR4 catheter was then advanced to the right coronary artery. Images of the right coronary artery revealed normal RCA. M id RCA had mild plaque disease. Distal RPD and RPLS appeared to be healthy and free of disease. Aft er these images had been obtained, the JR4 catheter was removed and placed in the left subclavian art fang. Angiography of the left subclavian artery showed widely patent left subclavian artery widely patent left subclavian artery with no evidence of vascular disease. Catheter was removed for a pigtail catheter. Abdominal angiogram was obtained which showed calcified but patent descending a tish, calcified bilateral common iliac arteries which were still patent. The internal iliac arteries had stenosis bilaterally. The external iliac arteries had mild plaque disease bilaterally. GATE ATTENDANT pat ent bilaterally. At this time, the pigtail catheter was removed. wire left groin was sierra sed with manual pressure. Patient tolerated the procedure well with no issues. IMPRESSION: 1. Widely patent proximal LAD stent with no significant disease in left circumflex and right coronar y artery. 2. Severe pulmonary hypertension. 3. Severely reduced cardiac output. 4. Widely patent left subclavian artery. 5. Patent aortoiliac conduits with calcified disease. PLAN: The patient will have 3 hours bed rest. Will follow up with Dr. Hoffman next week. If the alexandr ent is deemed to be suitable for TAVR we will follow up with the patient after Dr. Hoffman's visit. /[id number]/MODL
== END 2018-01-29 13:43 | disposition home or self-care (01) ==
LOC: FCATH 08:18
PROVIDERS: ATTEND Internal Medicine Cardiovascular Disease
PROC: 4A023N8 Measurement of Cardiac Sampling and Pressure, Bilateral, Percutaneous Approach (ICD-10-PCS; principal; 2018-01-29)
PROC: B4101ZZ Fluoroscopy of Abdominal Aorta using Low Osmolar Contrast (ICD-10-PCS; principal; 2018-01-29)
PROC: B2111ZZ Fluoroscopy of Multiple Coronary Arteries using Low Osmolar Contrast (ICD-10-PCS; principal; 2018-01-29)
PROC: B2151ZZ Fluoroscopy of Left Heart using Low Osmolar Contrast (ICD-10-PCS; principal; 2018-01-29)
PROC: B3121ZZ Fluoroscopy of Left Subclavian Artery using Low Osmolar Contrast (ICD-10-PCS; principal; 2018-01-29)
DX: I27.20 Pulmonary hypertension, unspecified (principal); I50.9 Heart failure, unspecified; I25.10 Atherosclerotic heart disease of native coronary artery without angina pectoris; G47.33 Obstructive sleep apnea (adult) (pediatric); I48.91 Unspecified atrial fibrillation; E11.9 Type 2 diabetes mellitus without complications; I65.22 Occlusion and stenosis of left carotid artery; D64.9 Anemia, unspecified; Z95.5 Presence of coronary angioplasty implant and graft
CPT/HCPCS: J1644; J2250; J3010; Q9967

== ENCOUNTER 2018-02-12 07:45 | Inpatient (IN) | payer OTHER ==
[~2018-02-12 07:45] MED LIST: ADENOSINE 6 MG/2 ML VIAL ONE; ALBUMIN 5% 250 ML BOTTLE IV ONE; AMINOCAPROIC ACID 5 GM/20 ML VIAL IV ONE; AMIODARONE HCL 150 MG/3 ML VIAL ONE; CALCIUM CHLORIDE 1 GM/10 ML INJ ONE; CITRATE DEXTROSE SOLN 500 ML BAG MISC ONE; CITRATE DEXTROSE SOLN 500 ML BAG ONE; DOPamine/DEXTROSE 400 MG/250 ML BAG IV ONE; HEPARIN 10,000 UNIT/10 ML MDV (1,000 UNIT/ML) ONE; INSULIN REGULAR HUMAN 100 UNIT in NS 100 ML IV ONE; LIDOCAINE 2% 100 MG/5 ML SYR ONE; MAGNESIUM SULFATE 1 GM/2 ML VIAL ONE; MANNITOL 25% 12.5 GM/50 ML VIAL IVP ONE; MILRINONE/DEXTROSE/100 ML BAG IV ONE; MUPIROCIN 2% 22 GM OINT NS ONE; NA BICARBONATE 50 MEQ/50 ML VIAL ONE; NITROGLYCERIN/D5W 50 MG/250 ML BOTTLE IV ONE; NOREPINEPHRINE BITARTRATE 16 MG in NS 250 ML IV ONE; PHENYLEPHRINE HCL 50 MG in NS 250 ML IV ONE; PROTAMINE SULFATE 50 MG/5 ML VIAL IVP ONE; SODIUM BICARBONATE 20 MEQ, LIDOCAINE 1% 10 ML in NORMOSOL-R 1,000 ML MISC ONE; ceFAZolin 1 GM VIAL ONE; ceFAZolin 2 GM/DEXTROSE 100 ML IV ONE; methylPREDNISolone SOD SUCC 1 GM/8 ML VIAL ONE; niCARdipine/NACL/200 ML BAG IV ONE
[2018-02-12] MEDS ORDERED: LIDOCAINE 1% 2 ML INJ ID PRN (08:01)
[2018-02-12] MEDS ORDERED: LR 1,000 ML IV ONE (08:03)
--- NOTE | 2018-02-12 08:05 | PDHPUP ---
History & Physical Update H&P update statement: This history and physical update is based on an assessment of the patient which was completed after admission or registration (within 24 hours), but prior to the surgery/procedure. H&P update: H&P reviewed & patient examined, no change in patient's condition since H&P completed (Outpt DIANE not done. Await intraop DIANE interp degree of MR. Positive antibody screen. Cross matched x 4u PRBC.)
[2018-02-12] MEDS ORDERED: CEFAZOLIN 2 GM/DEXTROSE/100 ML BAG IV ONE (08:45)
[2018-02-12 09:12] LABS: INR 1.33 (0.83-1.16); PROTIME(PATIENT) 16.7 SEC (12.0-15.0)
[2018-02-12] MEDS ORDERED: MINERAL OIL 10 ML VIAL ONE (09:23)
[2018-02-12] MEDS ORDERED: MIDAZOLAM 2 MG/2 ML VIAL ONE ×2 (09:43→09:53)
[2018-02-12] MEDS ORDERED: MIDAZOLAM 2 MG/2 ML VIAL IVP ONE (09:47)
[2018-02-12] MEDS ORDERED: REMIFENTANIL HCL 1 MG VIAL ONE (09:53)
[2018-02-12] MEDS ORDERED: fentaNYL 250 MCG/5 ML INJ ONE (09:53)
[2018-02-12] MEDS ORDERED: PHENYLEPHRINE HCL 100 MCG/ML SYR ONE (09:54)
[2018-02-12] MEDS ORDERED: PROPOFOL/EMULSION 500 MG/50 ML BOTTLE IV ONE (09:54)
[2018-02-12] MEDS ORDERED: ONDANSETRON 4 MG/2 ML VIAL ONE (09:54)
[2018-02-12] MEDS ORDERED: DEXAMETHASONE 4 MG/ML VIAL ONE ×2 (09:54)
[2018-02-12] MEDS ORDERED: ROCURONIUM 100 MG/10 ML VIAL ONE (09:54)
[2018-02-12] MEDS ORDERED: ePHEDrine SULFATE 25 MG/5 ML SYR ONE (09:54)
--- NOTE | 2018-02-12 11:47 | PDANEPAE ---
ANE History of Present Illness /TR/MR/a-fib s/f AVReplacement/MVRepair/TVRepair/Collins 4 MAZE ANE Past Medical History - Cardiovascular History Hx Hypertension: Yes Hx Arrhythmias: Yes Hx Chest Pain: No Hx Coronary Artery / Peripheral Vascular Disease: Yes Hx CHF / Valvular Disease: Yes Hx Palpitations: No Cardiovascular History Comment: afib. chronic cor pulmonale. chf. hyperlipidemia. cad with stent 2007 - Pulmonary History Hx COPD: No Hx Asthma/Reactive Airway Disease: No Hx Recent Upper Respiratory Infection: No Hx Oxygen in Use at Home: Yes O2 in Use at Home (L/minute): 2L cont Hx Sleep Apnea: No Sleep Apnea Screening Result - Last Documented: Positive Pulmonary History Comment: douglas positive- uses o2 - Neurologic History Hx Cerebrovascular Accident: Yes Hx Seizures: No Hx Dementia: No Neurologic History Comment: cva's x2 - most recent jun 2017 - Endocrine History Hx Diabetes: Yes Endocrine History Comment: type 2. hypothyroidism - Renal History Hx Renal Disorders: Yes Renal History Comment: hx of bladder lift. stress incontinence continued - Liver History Hx Hepatic Disorders: No - Neurological & Psychiatric Hx Hx Neurological and Psychiatric Disorders: Yes Neurological / Psychiatric History Comment: hx of insomnia. hx of situational depression - Cancer History Hx Cancer: No - Congenital Disorder History Hx Congenital Disorders: No Congenital History Comment: FAMILY HX WITH SISTERS - GI History Hx Gastrointestinal Disorders: Yes Gastrointestinal History Comment: reflux - Other Health History Other Health History: anemia hx of iron infusions x2, 1st one on 01/30/18 and . wears glasses - Chronic Pain History Chronic Pain: Yes (bilateral knees) - Surgical History Prior Surgeries: cath 01/29/18. left CEA 06/28/17 at [facility]. right CEA 2014. 01/13/16 isaias [facility]icio. TUBAL LIGATION. BLADDER LIFT. RIGHT KP. BREAST BIOPSY- LEFT. CARDIAC STENT ANE Review of Systems Review of Systems: - Exercise capacity METS (RN): 3 METS ANE Patient History - Allergies Allergies/Adverse Reactions: dextromethorphan Allergy (Verified 02/09/18 17:39) Makes pt hyperactive, tachycardic diazepam [From Valium] Allergy (Verified 02/09/18 17:39) Makes pt hyperactive Olgjqfw-Dgp-Bzl Reductase Inhibitor Allergy (Verified 02/09/18 17:39) Musche aches, but tolerates rosuvastatin - Home Medications Home medications: home medication list seen and reviewed Home Medications: Aspirin [Aspirin 325 mg (*)] 325 mg PO DAILY 04/17/14 [Last Taken 02/06/18] Herbals/Supplements -Info Only 1 ea PO DAILY 04/17/14 [Last Taken 02/11/18] Lansoprazole 30 mg PO DAILY 04/17/14 [Last Taken 02/11/18] Levothyroxine [Synthroid 88 mcg (*)] 88 mcg PO DAILY@04 04/17/14 [Last Taken ] Warfarin Sodium [Coumadin 1MG (*)] 1 mg PO DAILY@16 04/17/14 [Last Taken ] metFORMIN HCL [Glucophage 500 mg (*)] 1,000 mg PO BIDMEAL 04/17/14 [Last Taken 02/09/18] Furosemide [Lasix 20 MG (*)] 20 mg PO DAILY 01/13/16 [Last Taken 02/11/18] Digoxin [Digitek] 125 mcg PO DAILY 02/09/18 [Last Taken 02/11/18] Rosuvastatin Calcium 5 mg PO Q7D 02/09/18 [Last Taken 02/11/18] traZODone [traZODONE 50MG (*)] 50 mg PO HS PRN 02/09/18 [Last Taken 02/07/18] Enoxaparin [Lovenox 80 MG (*)] 80 mg SQ BID 02/12/18 [Last Taken 02/11/18] - NPO status NPO Status: no food or drink >8 hours NPO Since - Liquids (Date): 02/11/18 NPO Since - Liquids (Time): 20:00 NPO Since - Solids (Date): 02/11/18 NPO Since - Solids (Time): 20:00 - Anes Hx Anes Hx: no prior problems - Smoking Hx Smoking Status: Former smoker - Alcohol Use Alcohol Use: Rarely - Family Anes Hx Family Anes Hx: none Family Hx Anesthesia Complications: none ANE Labs/Vital Signs - Labs Result Diagrams: 02/12/18 08:40 - Vital Signs Blood Pressure: 159/83 Heart Rate: 82 Respiratory Rate: 16 O2 Sat (%): 95 Height: 161.4 cm Weight: 84.5 kg ANE Physical Exam - Airway Neck exam: decreased ROM Mallampati Score: Class 2 Mouth exam: poor dentition - Pulmonary Pulmonary: no respiratory distress - Cardiovascular Cardiovascular: systolic murmur, irregularly irregular, diastolic murmur - ASA Status ASA Status: III ANE Anesthesia Plan Anesthesia Plan: general endotracheal anesthesia Lines/Monitors: arterial line, central line, DIANE Urgent/Emergent Case: Anes eval completed preop but documented later for safe timely pt care
[2018-02-12] MEDS ORDERED: DEXMEDETOMIDINE HCL 400 MCG in NS 100 ML IV SCH (12:00)
[2018-02-12] MEDS ORDERED: ALBUMIN 5% 250 ML BOTTLE IV ONE ×2 (13:00→13:01)
[2018-02-12] MEDS ORDERED: SUGAMMADEX SODIUM 200 MG/2 ML VIAL IVP ONE (14:07)
[2018-02-12] MEDS ORDERED: BISACODYL 10 MG SUPP PR PRN (14:34)
[2018-02-12] MEDS ORDERED: ALBUMIN 5% 250 ML IV PRN (14:34)
[2018-02-12] MEDS ORDERED: PANTOPRAZOLE SODIUM 40 MG VIAL IVP ONE (14:34)
[2018-02-12] MEDS ORDERED: D50W 25 GM/50 ML SYR IVP PRN (14:34)
[2018-02-12] MEDS ORDERED: MAGNESIUM HYDROXIDE 30 ML UDCUP PO PRN (14:34)
[2018-02-12] MEDS ORDERED: MEPERIDINE 25 MG/0.5 ML AMP IVP PRN (14:34)
[2018-02-12] MEDS ORDERED: niCARdipine/NACL 200 ML IV PRN (14:34)
[2018-02-12] MEDS ORDERED: SODIUM CL NASAL 45 ML BTL EACHNARE PRN (14:34)
[2018-02-12] MEDS ORDERED: fentaNYL 100 MCG/2 ML INJ IVP PRN (14:34)
[2018-02-12] MEDS ORDERED: POLYETHYLENE GLYCOL 3350 17 GM PKT PO PRN (14:34)
[2018-02-12] MEDS ORDERED: LACTULOSE 20 GM/30 ML UDCUP PO PRN (14:34)
[2018-02-12] MEDS ORDERED: POTASSIUM Cl (KCl) 50 ML IV PRN (14:34)
[2018-02-12] MEDS ORDERED: NS 1,000 ML IV SCH (14:45)
[2018-02-12] MEDS ORDERED: INSULIN REGULAR HUMAN 100 UNIT in NS 100 ML IV SCH (15:00)
--- NOTE | 2018-02-12 15:00 | PDMN ---
Medical Necessity Medical necessity: [place] 69821/91286 [facility] [place] Cardiac Valve Replacement or Repair , IP Only, [id number] [facility] [place] [facility] Cardiovascular Surgery or Procedure GRG, IP Only, 72 yo s/p valve aortic replacement, valve tricuspid repair, rashid maze 4 procedure, perfusion, valve mitral repair.
--- NOTE | 2018-02-12 15:20 | GOP ---
DATE OF OPERATION: 02/12/2018 SURGEON: Jan Hoffman DO CASH APPLICATIONS MANAGER: Nawaf. ANESTHESIA: Perez. PREOPERATIVE DIAGNOSIS: 1. Congestive heart failure with severe aortic stenosis, severe mitral insufficiency, and severe tri cuspid insufficiency. 2. Obesity. 3. Pulmonary hypertension. 4. Permanent atrial fibrillation. POSTOPERATIVE DIAGNOSIS: 1. Congestive heart failure with severe aortic stenosis, severe mitral insufficiency, and severe tri cuspid insufficiency. 2. Obesity. 3. Pulmonary hypertension. 4. Permanent atrial fibrillation. PROCEDURE PERFORMED: 1. Aortic valve replacement with a #23 Magna bioprosthesis. 2. Mitral valve repair with a #32 Physio ring. 3. Tricuspid valve repair of #32 Bradley tricuspid ring. 4. Collins-Maze 4 with biatrial Maze with sensing and testing, as well as atrial clip to the left atrial appendage. FINDINGS: Patient was noted to be in permanent atrial fibrillation with evidence of class II to clas s III congestive heart failure. 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 DESCRIPTION OF PROCEDURE: She was consented, brought to the operating room, intubated. Monitoring l moriah were placed. She was prepped and draped in sterile classical manner. Sternotomy was performed. She was heparinized. Intraoperative DIANE confirmed preoperative findings with evidence of at least 3, possibly 4+ mitral insufficiency according to Dr. Baptiste, who performed intraoperative DIANE while sed ated. We then cannulated the patient with bicaval cannulas. Sensing on the right pulmonary vein revealed n o evidence of entrance block. She was in atrial fibrillation, so we were unable to pace her. I was reluctant to cardiovert her to test for exit block because she had been in atrial fibrillation for lo ng time and I was not entirely certain there was no thrombus in the left atrium. We then performed testing on the left side, which showed no evidence of entrance block. We then enci rcled the right pulmonary veins and performed 3 overlapping lesion sets with multiple ablations per s et with the last one being 5 seconds. We then tested the right side with evidence of complete entran ce block noted. We then went on cardiopulmonary bypass and performed left-sided PVI again with 3 ove rlapping lesion sets and no evidence of conduction across that. We then arrested the heart with antegrade cardioplegia. We opened the left atrial appendage and pass ed the radiofrequency clamp into the left superior pulmonary vein and performed multiple ablation les ions. We then placed a 40 mm atrial clip on the left atrial appendage. We marked the terminus of th e right and circumflex with coronary sinus and did a 3 minute cryoablation across the coronary sinus up onto the left ventricle extending onto the posterior wall of the left atrium, which was marked. We then placed a retrograde catheter. We exposed the aortic valve and excised the heavily calcified 3 leaflet valve. The anulus was debrided. The aortic root was endarterectomized because of heavy ca lcification for future closing, staying clear of the coronary arteries. Copious irrigation was perfo rmed. We then proceeded with exposing the mitral valve in the left atrium. We extended the atriotomy all w ay over almost to the inferior and superior pulmonary veins on the left and completed the ablation li ne with radiofrequency. We then performed cryo on the mitral isthmus overlapping the previously maury ed cryo on the external coronary sinus for 3 minutes. We then performed a lesion from the right infe rior pulmonary vein to the left inferior pulmonary vein in a similar fashion. We then evaluated the mitral valve and felt it was due to mostly annular dilatation. There was some MAC, but not prohibiti ve. We then placed circumferential sutures, sized the patient for a 32 Physio ring, which was secured wit hout evidence of leak on distention. Left atrium was closed with a vent across the LV into the LV. We then replaced the aortic valve with interrupted 2-0 Tycron pledgeted mattress sutures utilizing Co r-Knots. A 23 valve was placed. The aortotomy was closed in a 2-layer fashion. We then placed the patient in deep Trendelenburg. The cross-clamp was removed with suction on the LV vent and the ascen ding aortic vent while the right atrium atriotomy was performed in a vertical fashion performing free wall superior and inferior vena caval lesions with radiofrequency, performed the isthmus lesion with cryo. I then put circumferential sutures around the dilated tricuspid anulus, and sized the patient for a 32 ring, which eliminated any regurgitation on distention. Atriotomy was closed. Atrial and ventricular pacing wires were placed. Patient was then de-aired th rough the apex, weaned from bypass. Heparin was reversed with protamine. Cannula was removed and ov ersewn. 4 pacing wires, 2 mediastinal drains were placed. The thymic fat and pericardium were close d. Chest was closed in standard fashion. Patient was returned to ICU in stable condition. /[id number]/MODL
[2018-02-12] MEDS ORDERED: PANTOPRAZOLE SODIUM 40 MG VIAL ONE (16:44)
[2018-02-12] MEDS: ACETAMINOPHEN 500 MG TAB PO SCH (17:51)
[2018-02-12] MEDS: ONDANSETRON 4 MG/2 ML VIAL IVP PRN (18:44)
[2018-02-12] MEDS: METOCLOPRAMIDE 10 MG/2 ML VIAL IVP PRN (19:02)
[2018-02-12] MEDS: MUPIROCIN 2% 22 GM OINT NS SCH (20:20)
[2018-02-12] MEDS: ceFAZolin 2 GM/DEXTROSE 100 ML IV SCH (21:23)
[2018-02-12] MEDS: traMADol 50 MG TAB PO PRN (22:21)
[2018-02-13] MEDS: ACETAMINOPHEN 500 MG TAB PO SCH ×4 (00:11→17:25)
[2018-02-13] MEDS: KETOROLAC 15 MG/1 ML SDV IVP PRN ×3 (01:43→14:37)
[2018-02-13] MEDS: METOCLOPRAMIDE 10 MG/2 ML VIAL IVP PRN ×2 (03:37→22:33)
[2018-02-13] MEDS: ONDANSETRON DISINTEGRATING 4 MG TAB PO PRN ×2 (03:37→11:40)
[2018-02-13 03:39] LABS: PLATELET COUNT 140 10^3/uL (150-400)
[2018-02-13 03:51] LABS: INR 1.46 (0.83-1.16); PROTIME(PATIENT) 17.9 SEC (12.0-15.0)
[2018-02-13] MEDS ORDERED: FUROSEMIDE 20 MG/2 ML VIAL ONE (04:10)
[2018-02-13] MEDS ORDERED: FUROSEMIDE 20 MG/2 ML VIAL IV ONE ×2 (04:15→15:00)
[2018-02-13] MEDS: ceFAZolin 2 GM/DEXTROSE 100 ML IV SCH ×3 (04:54→21:09)
[2018-02-13] MEDS ORDERED: FUROSEMIDE 40 MG/4 ML VIAL IVP ONE ×3 (05:15→19:30)
[2018-02-13] MEDS: LEVOTHYROXINE 88 MCG TAB PO SCH (05:24)
[2018-02-13] MEDS: HEPARIN 5,000 UNIT/0.5 ML INJ SC SCH ×3 (06:02→21:09)
[2018-02-13] MEDS ORDERED: PROPOFOL/EMULSION 500 MG/50 ML BOTTLE IV ONE (06:16)
[2018-02-13] MEDS ORDERED: REMIFENTANIL HCL 1 MG VIAL ONE (06:16)
[2018-02-13] MEDS ORDERED: ROCURONIUM 50 MG/5 ML VIAL ONE (06:18)
[2018-02-13] MEDS ORDERED: LIDOCAINE 2% 100 MG/5 ML SYR ONE (06:18)
[2018-02-13] MEDS ORDERED: DEXAMETHASONE 4 MG/ML VIAL ONE ×2 (06:18)
[2018-02-13] MEDS ORDERED: ONDANSETRON 4 MG/2 ML VIAL ONE (06:18)
[2018-02-13] MEDS ORDERED: MINERAL OIL 10 ML VIAL ONE (06:22)
[2018-02-13] MEDS ORDERED: ePHEDrine SULFATE 25 MG/5 ML SYR ONE ×2 (06:31→06:56)
[2018-02-13] MEDS ORDERED: PHENYLEPHRINE HCL 100 MCG/ML SYR ONE (06:32)
[2018-02-13] MEDS ORDERED: SUGAMMADEX SODIUM 200 MG/2 ML VIAL IVP ONE (07:06)
--- NOTE | 2018-02-13 07:10 | POSTANESTH ---
Post Anesthetic Evaluation Cardiovascular Status: Other, See Comment (stable-needs post op pacing) Respiratory Status: Normal, Stable (on NC 02), Tx Decrease in SpO2 Level of Consciousness/Mental Status: Can Participate in Eval, Alert and Oriented Pain Control: Adequate, Prn Tx Ordered Nausea/Vomiting Control: Adequate, Prn Tx Ordered Complications Possibly Related to Anesthesia: None Noted (visited at 0600, prior to return to OR for bleeding)
--- NOTE | 2018-02-13 07:12 | PDANEPAE ---
ANE History of Present Illness redo stenotomy for bleeding and post op exploration ANE Past Medical History - Cardiovascular History Hx Hypertension: Yes Hx Arrhythmias: Yes Hx Chest Pain: No Hx Coronary Artery / Peripheral Vascular Disease: Yes Hx CHF / Valvular Disease: Yes Hx Palpitations: No Cardiovascular History Comment: afib. chronic cor pulmonale. chf. hyperlipidemia. cad with stent 2007 - Pulmonary History Hx COPD: No Hx Asthma/Reactive Airway Disease: No Hx Recent Upper Respiratory Infection: No Hx Oxygen in Use at Home: Yes O2 in Use at Home (L/minute): 2L cont Hx Sleep Apnea: No Sleep Apnea Screening Result - Last Documented: Positive Pulmonary History Comment: douglas positive- uses o2 - Neurologic History Hx Cerebrovascular Accident: Yes Hx Seizures: No Hx Dementia: No Neurologic History Comment: cva's x2 - most recent jun 2017 - Endocrine History Hx Diabetes: Yes Endocrine History Comment: type 2. hypothyroidism - Renal History Hx Renal Disorders: Yes Renal History Comment: hx of bladder lift. stress incontinence continued - Liver History Hx Hepatic Disorders: No - Neurological & Psychiatric Hx Hx Neurological and Psychiatric Disorders: Yes Neurological / Psychiatric History Comment: hx of insomnia. hx of situational depression - Cancer History Hx Cancer: No - Congenital Disorder History Hx Congenital Disorders: No Congenital History Comment: FAMILY HX WITH SISTERS - GI History Hx Gastrointestinal Disorders: Yes Gastrointestinal History Comment: reflux - Other Health History Other Health History: anemia hx of iron infusions x2, 1st one on 01/30/18 and . wears glasses - Chronic Pain History Chronic Pain: Yes (bilateral knees) - Surgical History Prior Surgeries: cath 01/29/18. left CEA 06/28/17 at [facility]. right CEA 2014. 01/13/16 lap anju with Hang. TUBAL LIGATION. BLADDER LIFT. RIGHT KP. BREAST BIOPSY- LEFT. CARDIAC STENT ANE Review of Systems Review of Systems: - Exercise capacity METS (RN): 3 METS - Pacemaker Pacemaker Set Rate: 80 ANE Patient History - Allergies Allergies/Adverse Reactions: dextromethorphan Allergy (Verified 02/09/18 17:39) Makes pt hyperactive, tachycardic diazepam [From Valium] Allergy (Verified 02/09/18 17:39) Makes pt hyperactive Tzewvbf-Epw-Bho Reductase Inhibitor Allergy (Verified 02/09/18 17:39) Musche aches, but tolerates rosuvastatin - Home Medications Home medications: home medication list seen and reviewed Home Medications: Aspirin [Aspirin 325 mg (*)] 325 mg PO DAILY 04/17/14 [Last Taken 02/06/18] Herbals/Supplements -Info Only 1 ea PO DAILY 04/17/14 [Last Taken 02/11/18] Lansoprazole 30 mg PO DAILY 04/17/14 [Last Taken 02/11/18] Levothyroxine [Synthroid 88 mcg (*)] 88 mcg PO DAILY@04 04/17/14 [Last Taken ] Warfarin Sodium [Coumadin 1MG (*)] 1 mg PO DAILY@16 04/17/14 [Last Taken ] metFORMIN HCL [Glucophage 500 mg (*)] 1,000 mg PO BIDMEAL 04/17/14 [Last Taken 02/09/18] Furosemide [Lasix 20 MG (*)] 20 mg PO DAILY 01/13/16 [Last Taken 02/11/18] Digoxin [Digitek] 125 mcg PO DAILY 02/09/18 [Last Taken 02/11/18] Rosuvastatin Calcium 5 mg PO Q7D 02/09/18 [Last Taken 02/11/18] traZODone [traZODONE 50MG (*)] 50 mg PO HS PRN 02/09/18 [Last Taken 02/07/18] Enoxaparin [Lovenox 80 MG (*)] 80 mg SQ BID 02/12/18 [Last Taken 02/11/18] - NPO status NPO Status: no food or drink >8 hours NPO Since - Liquids (Date): 02/11/18 NPO Since - Liquids (Time): 20:00 NPO Since - Solids (Date): 02/11/18 NPO Since - Solids (Time): 20:00 - Anes Hx Anes Hx: no prior problems - Smoking Hx Smoking Status: Former smoker - Alcohol Use Alcohol Use: Rarely - Family Anes Hx Family Anes Hx: none Family Hx Anesthesia Complications: none ANE Labs/Vital Signs - Labs Result Diagrams: 02/13/18 03:30 02/13/18 03:30 - Vital Signs Blood Pressure: 131/65 Heart Rate: 80 Respiratory Rate: 13 O2 Sat (%): 97 Height: 161.4 cm Weight: 87.2 kg ANE Physical Exam - Airway Neck exam: decreased ROM Mallampati Score: Class 2 (EZ intubation yesterday) Mouth exam: poor dentition - Pulmonary Pulmonary: inspiratory crackles - Cardiovascular Cardiovascular: regular rate and rhythym, systolic murmur - ASA Status ASA Status: III, E ANE Anesthesia Plan Anesthesia Plan: general endotracheal anesthesia Lines/Monitors: arterial line, central line (a-line and CVP already existing) Urgent/Emergent Case: Jenn zhang completed preop but documented later for safe timely pt care
--- NOTE | 2018-02-13 07:59 | GOP ---
DATE OF OPERATION: 02/13/2018 SURGEON: Jan Hoffman DO GAMBLING MONITOR: Nawaf. ANESTHESIA: Perez. PREOPERATIVE DIAGNOSIS: Cardiac tamponade. POSTOPERATIVE DIAGNOSIS: Cardiac tamponade. PROCEDURE PERFORMED: Reexploration for tamponade. FINDINGS: DESCRIPTION OF PROCEDURE: Patient developed elevated CVPs with decreasing urine output, although her blood pressure remained stable. I had concern that she had fluid collection in the pericardium. Fo r that reason, she was consented, brought back to the operating room. A repeat sternotomy was perfor med. A large thrombus was located on the anterior surface of the previously closed pericardium. Thi s was evacuated. There was a small amount of blood within the pericardium. Her pressure remained st able throughout. We copiously irrigated. We found a site on the edge of the superior vena cava that had a slow continuous ooze, which was oversewn. No further bleeding was identified. The chest was irrigated. An additional drain was placed in the right pleura. The thymic fat and pericardium were again closed. The sternum was closed in standard fashion. Patient was returned to ICU in stable con dition. /[id number]/MODL
[2018-02-13] MEDS: ONDANSETRON 4 MG/2 ML VIAL IVP PRN ×3 (08:10→22:33)
[2018-02-13] MEDS: traMADol 50 MG TAB PO PRN ×3 (09:31→20:31)
[2018-02-13] MEDS: PANTOPRAZOLE SODIUM 40 MG TAB PO SCH (10:05)
[2018-02-13] MEDS: ASPIRIN 81 MG CHEWABLE TAB PO SCH (10:05)
[2018-02-13] MEDS: MUPIROCIN 2% 22 GM OINT NS SCH ×2 (10:30→21:10)
--- NOTE | 2018-02-13 10:31 | ASMTLACE ---
MICHAEL Acuity / Level of Answers: Yes Care: Did the patient have an inpatient admission? Comorbidities - select Answers: Cerebrovascular disease all that apply (CVA, TIA, aneurysms, vasc ular dementia) Congestive heart failure Coronary Artery Disease Diabetes (uncontrolled or controlled) Opioid dependence / Chronic pain Previous myocardial infarction Other Notes: HTN; HLD; AFib # of Emergency department Answers: 1-2 visits in the last 6 months Social determinants Answers: Mental health diagnosis (anxiety, depression, pers onality disorders, etc.) Score: 19 Date Signed: 02/13/2018 10:30 AM Electronically Signed By:Violeta Augustine
--- NOTE | 2018-02-13 11:35 | GCON ---
INTRAOPERATIVE DIANE REPORT I was asked by Dr. Jan Hoffman to come to the operating room as the patient was being prepped for barbara nned open heart surgery. He requested further evaluation of the patient's heart valves, specifically her mitral valve, prior to beginning sternotomy. General anesthesia had been obtained by Dr. Billy Perez. The transesophageal probe had been introduce d into the esophagus, also by Dr. Perez. We obtained several images on DIANE. In summary, the patient has severe aortic stenosis with mild aortic regurgitation. She had mild-to-m oderate mitral annular calcification with eoxkoifj-zd-tubhcc mitral regurgitation. There were 3 jets , with a large central jet. Etiology seems to be primarily related to annular dilatation. She had m bckyzaj-vk-kraihj tricuspid regurgitation as well. Ejection fraction is preserved. ASSESSMENT AND PLAN: Severe aortic stenosis, ilgpryzn-za-bxnlec mitral and nxuxeiri-it-eswcvl tricus pid regurgitation. Normal ejection fraction. Recommendations were shared with Dr. Jan Hoffman and surgical plan is aortic valve replacement with m itral valve repair and tricuspid valve repair. /[id number]/MODL
--- NOTE | 2018-02-13 16:41 | ASMTCMCOM ---
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 He has a Hx of CA NHL and GERD. Patient lives with his . He was transferred here [place]. Bother is here visiting and needs a letter for the airlines. CM to follow. Date Signed: 02/13/2018 04:40 PM Electronically Signed By:Kristina Solorio LCSW
[2018-02-13] MEDS ORDERED: D50W 25 GM/50 ML SYR IVP PRN (17:01)
[2018-02-13] MEDS: INSULIN REGULAR HUMAN 100 UNIT/ML UNIT SC SCH ×2 (17:26→20:31)
[2018-02-13] MEDS: SENNOSIDES/DOCUSATE SODIUM TAB PO SCH (20:31)
[2018-02-14] MEDS: ACETAMINOPHEN 500 MG TAB PO SCH ×2 (00:30→04:55)
[2018-02-14] MEDS: traMADol 50 MG TAB PO PRN (01:36)
[2018-02-14 03:58] LABS: PLATELET COUNT 154 10^3/uL (150-400)
[2018-02-14 04:07] LABS: INR 1.42 (0.83-1.16); PROTIME(PATIENT) 17.5 SEC (12.0-15.0)
[2018-02-14] MEDS: ceFAZolin 2 GM/DEXTROSE 100 ML IV SCH (04:54)
[2018-02-14] MEDS: LEVOTHYROXINE 88 MCG TAB PO SCH (04:55)
[2018-02-14] MEDS: HEPARIN 5,000 UNIT/0.5 ML INJ SC SCH ×3 (04:57→21:12)
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
[2018-02-14] MEDS ORDERED: traZODone 50 MG TAB PO PRN (06:05)
[2018-02-14] MEDS ORDERED: PROTOCOL POTASSIUM 1 DOSE MISC PRN (06:45)
[2018-02-14] MEDS: INSULIN REGULAR HUMAN 100 UNIT/ML UNIT SC SCH ×4 (08:32→21:20)
[2018-02-14] MEDS: ONDANSETRON 4 MG/2 ML VIAL IVP PRN (08:36)
[2018-02-14] MEDS: FUROSEMIDE 40 MG/4 ML VIAL IVP SCH ×2 (08:37→14:15)
[2018-02-14] MEDS ORDERED: AMIODARONE HCL 200 MG TAB PO SCH (09:00)
[2018-02-14] MEDS: PANTOPRAZOLE SODIUM 40 MG TAB PO SCH (09:25)
[2018-02-14] MEDS: ASPIRIN 81 MG CHEWABLE TAB PO SCH (09:27)
[2018-02-14] MEDS: SENNOSIDES/DOCUSATE SODIUM TAB PO SCH ×2 (09:29→21:14)
[2018-02-14] MEDS: MUPIROCIN 2% 22 GM OINT NS SCH ×2 (09:31→21:13)
--- NOTE | 2018-02-14 09:52 | POSTANESTH ---
Post Anesthetic Evaluation Cardiovascular Status: Normal, Stable (heart block) Respiratory Status: Similar to Pre-op Cond., Tx Decrease in SpO2 Level of Consciousness/Mental Status: Can Participate in Eval Pain Control: Adequate, Prn Tx Ordered Nausea/Vomiting Control: Adequate, Prn Tx Ordered Complications Possibly Related to Anesthesia: None Noted
[2018-02-14] MEDS ORDERED: WARFARIN SODIUM 1 MG TAB PO ONE (16:00)
[2018-02-14] MEDS: ACETAMINOPHEN 500 MG TAB PO PRN (17:09)
[2018-02-15] MEDS: HYDROCODONE/APAP 5/325 TAB PO PRN ×2 (00:06→04:25)
[2018-02-15] MEDS: HEPARIN 5,000 UNIT/0.5 ML INJ SC SCH (04:20)
[2018-02-15] MEDS: LEVOTHYROXINE 88 MCG TAB PO SCH (04:20)
[2018-02-15 04:45] LABS: INR 1.45 (0.83-1.16); PROTIME(PATIENT) 17.8 SEC (12.0-15.0)
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
[2018-02-15] MEDS: INSULIN REGULAR HUMAN 100 UNIT/ML UNIT SC SCH ×4 (08:48→22:42)
[2018-02-15] MEDS: SENNOSIDES/DOCUSATE SODIUM TAB PO SCH (08:48)
[2018-02-15] MEDS: ASPIRIN 81 MG CHEWABLE TAB PO SCH (08:49)
[2018-02-15] MEDS: PANTOPRAZOLE SODIUM 40 MG TAB PO SCH (08:49)
[2018-02-15] MEDS: MUPIROCIN 2% 22 GM OINT NS SCH (08:49)
[2018-02-15] MEDS ORDERED: hydrALAZINE 20 MG/ML VIAL IVP PRN ×2 (09:00→18:18)
[2018-02-15] MEDS: ACETAMINOPHEN 500 MG TAB PO PRN ×2 (09:20→22:50)
[2018-02-15] MEDS: FUROSEMIDE 40 MG/4 ML VIAL IVP SCH ×2 (11:46→15:20)
[2018-02-15] MEDS ORDERED: WARFARIN SODIUM 1 MG TAB PO ONE (16:00)
--- NOTE | 2018-02-15 16:33 | GCON ---
INTERNAL MEDICINE CONSULTATION. DATE OF CONSULTATION: 02/15/[address] Jan Hoffman of cardiovascular surgery. REASON FOR CONSULTATION: Medical opinion regarding diabetes management. HISTORY: This is a 72-year-old female with severe aortic stenosis who has undergone an aortic valve replacement by Dr. Hoffman as well as a mitral valve and tricuspid valve repair. She needs to go back to surgery for a 2nd operation when it was noted that her CVP was elevated and her urine output was d ropping. She was found to have tamponade and thrombus in her pericardium coming from oozing at the S VC cannulation site which was subsequently oversewn. She is now postop, doing very well without acute complaints, feeling optimistic regarding her recover y. PAST MEDICAL HISTORY: 1. Aortic stenosis, status post aortic valve replacement and mitral valve and tricuspid valve repair . 2. Atrial fibrillation. 3. Diastolic congestive heart failure. 4. Diabetes type 2. Last hemoglobin A1c 5.3%. 5. Peripheral vascular disease status post carotid artery stent. 6. History of stroke. 7. Obstructive sleep apnea. 8. Coronary artery disease, status post stent to the LAD. 9. Obesity BMI 33. PAST SURGICAL HISTORY: Cholecystectomy, right total hip arthroplasty. MEDICATIONS: Please see computer record for full detailed list. ALLERGIES: Statin, benzodiazepines. SOCIAL HISTORY: Quit smoking in 2000, she drinks 1 alcoholic beverage per day. REVIEW OF SYSTEMS: Complete review of systems obtained. Review of systems negative on constitutiona l, HEENT, GI, pulmonary, cardiovascular, , hematologic, skin, musculoskeletal, endocrine, psych exc ept for positives and negatives as in HPI. FAMILY HISTORY: Reviewed, noncontributory to presenting complaint. PHYSICAL EXAMINATION: GENERAL: Well-developed, well-nourished female, in no acute distress. VITAL SIGNS: Temperature 36.9, pulse is 60, blood pressure 165/75, saturating 97% on 3 L. EYES: Nor mal conjunctivae, pupils react to light. ENT: Normal ears, nose. Hearing intact. Normal teeth. Or opharynx moist. NECK: Trachea midline. No thyromegaly. CHEST: Normal effort, lungs clear to auscul tation bilaterally. CARDIOVASCULAR: Regular rhythm. No lower extremity edema. ABDOMEN: Soft nonte nder, no hepatosplenomegaly. SKIN: Warm, dry, intact. No rash. MUSCULOSKELETAL: No cyanosis or clu bbing. Strength 5/5 upper and lower extremities. NEURO: Cranial nerves intact. Normal sensation t o light touch. PSYCH: Alert, oriented x3. Normal affect. Normal judgment and insight. Normal memory. LABORATORY DATA: White count 24.18, hematocrit 22.8, platelets 154, sodium 134, potassium 4.2, chlor vazquez 100, bicarb 23, BUN 35, creatinine 1.3, glucose 208, INR is 1.45. Chest x-ray shows atelectasis. MEDICAL RECORD REVIEW: Medical records are extensive including a recent stat transfer to [facility] for acute stroke with acute critical carotid was found. They put in an emergent carotid artery stent at [facility]. ASSESSMENT AND PLAN: 1. Diabetes type 2. Well controlled on metformin as an outpatient with her last hemoglobin A1c of 5 .3%. Metformin is currently being held due to acute renal failure. In the interim she is treated wi th insulin sliding scale with regular insulin which I think will be adequate. This will be followed closely. Once her renal failure returns to baseline and she is otherwise hemodynamically stable, met formin can be restarted. 2. Acute renal failure. I suspect this is cardiorenal due to hypoperfusion as a complication of her cardiac tamponade. Will follow her renal function daily. She is being diuresed with IV Lasix 40 mg IV twice daily. 3. Aortic valve replacement as well as mitral valve and tricuspid valve repair. Complicated by post operative tamponade requiring back to the OR for over-sewing of oozing from the SVC cannulation site. This management is per Dr. Hoffman's team. 4. Postoperative anemia. She is getting transfused right now. 5. Atrial fibrillation. Warfarin management per CT surgery. 6. Diastolic congestive heart failure. IV Lasix continues as discussed above. 7. Peripheral vascular disease status post recent carotid stent. Unfortunately she is allergic to s tatin drugs. She is on an aspirin. Probably need to clarify her need for Plavix given recent stent placement. 8. Obesity, body mass index 33 with obstructive sleep apnea. 9. Coronary artery disease, status post previous stent to the left anterior descending. Thank you very much for this consultation. Internal Medicine will continue to follow. /[id number]/MODL
[2018-02-15] MEDS ORDERED: hydrALAZINE 20 MG/ML VIAL IVP ONE (18:30)
[2018-02-15] MEDS ORDERED: SENNOSIDES/DOCUSATE SODIUM TAB PO PRN (21:00)
[2018-02-15] MEDS ORDERED: POTASSIUM CL 10 MEQ TAB PO ONE (21:50)
[2018-02-16] MEDS: ACETAMINOPHEN 500 MG TAB PO PRN ×3 (05:09→21:16)
[2018-02-16] MEDS: LEVOTHYROXINE 88 MCG TAB PO SCH (05:09)
[2018-02-16 05:49] LABS: INR 1.53 (0.83-1.16); PROTIME(PATIENT) 18.5 SEC (12.0-15.0)
--- NOTE | 2018-02-16 08:10 | SOAPPROG ---
SOAP Progress Note Assessment/Plan: Assessment: POD#4 AVR #23 Magna bioprosthesis, MVA #32 Physio ring, TVA #32 MC3 ring, Collins-Maze 4 POD#3 Re-exploration for bleeding/tamponade, oversew of superior vena cava cannulation site, chest tube placement Severe /MR/TR s/p AVR, MVA, TVA - Chest tubes out - Coumadin for multivalve thromboprophylaxis as per CM 4, adjunctive ASA for CAD /PVD Permanent atrial fibrillation s/p CM4 - Early postop AV pacing for AJR. Antinodals avoided. - Holding rates 50s overnoc. VVI backup intermittently triggered. Catapres stopped at suggestion of cards for potential AVB, bradycardia. - Coumadin, INR goal 2-3, duration as per CM 4 protocol Acute on chronic Fe def anemia. - Expected surgical blood loss with coagulopathy exacerbated by leaking cannulation site - Corrected with 5u PRBC, 2u FFP, 1u platelet and oversew SVC cannulation site - No evidence active bleeding. Appropriate INR rise on Coumadin. Chronic diastolic CHF, class III with valvular cardiomyopathy - Lasix prn, other HF meds when appropriate HTN - Home control w combo therapy - Postop management constrained by bradyarrhythmia and renal insuff. DM 2, A1c 5.3% - Continue ISS - Reintroduction of Metformin when renal fx normalized. Hospitalist following. Plan: Start Losartan 25 mg daily. D/C catapres. Cont prn hydralazine. Cont BID IV lasix x 1 more day. Decr VVI backup to 40. Cont Coumadin 1 mg daily. Baseline postop echo today. Inc activity as tolerated. Dispo - Anticipate home without services in 2-3 days. 02/16/18 08:08 Subjective: Much better today. Feels energetic and looking forward to PT and a shower. Confident in family support at home, already has ample adaptive equipment from prior surgeries, and does not want SNF rehab. Objective: Vital Signs Temp Pulse Resp BP Pulse Ox 36.4 C 50 L 18 138/63 H 98 02/16/18 04:00 02/16/18 06:25 02/16/18 04:00 02/16/18 06:25 02/16/18 04:00 Laboratory Results 02/16/18 05:15 02/16/18 05:15 02/15/18 02/16/18 02/17/18 05:59 05:59 05:59 Intake Total 1250 1700 Output Total 625 750 Balance 625 950 PT 18.5 SEC (12.0-15.0) H 02/16/18 05:15 INR 1.53 (0.83-1.16) H 02/16/18 05:15 Remains in AJR 50s w occ backup triggered. Downward trending SBPs with slower HR. Borderline suppl O2 req. Renal fx normalized. WBC falling. INR on the rise. Physical Exam - Physical Exam General Appearance: alert, no apparent distress Respiratory: crackles (bases), other (chest tube dressing CDI) Cardiac/Chest: regular rate, rhythm, other (Sternotomy CDI. A&V wires intact) Abdomen: non-tender, soft Skin: warm/dry Extremities: swelling (trace) ICD10 Worksheet Patient Problems: Problems Problem Status Onset Acute blood loss anemia Acute Chronic anticoagulation Acute Moderate to severe mitral regurgitation Acute S/P Maze operation for atrial fibrillation Acute ~02/12/18 S/P aortic valve replacement with bioprosthetic valve Acute ~02/12/18 S/P tricuspid valve repair Acute ~02/12/18 Severe aortic valve stenosis Acute Severe tricuspid regurgitation Acute Status post mitral valve annuloplasty Acute ~02/12/18 Valvular cardiomyopathy Acute Afib Chronic CAD (coronary artery disease) Chronic Cervical stenosis of spinal canal Chronic DM2 (diabetes mellitus, type 2) Chronic HLD (hyperlipidemia) Chronic HTN (hypertension) Chronic Vertebral artery stenosis Chronic
[2018-02-16] MEDS: INSULIN REGULAR HUMAN 100 UNIT/ML UNIT SC SCH ×4 (09:20→21:10)
[2018-02-16] MEDS: FUROSEMIDE 40 MG/4 ML VIAL IVP SCH ×2 (09:21→15:32)
[2018-02-16] MEDS: PANTOPRAZOLE SODIUM 40 MG TAB PO SCH (09:21)
[2018-02-16] MEDS: ASPIRIN 81 MG CHEWABLE TAB PO SCH (09:21)
[2018-02-16] MEDS: LOSARTAN POTASSIUM 25 MG TAB PO SCH (09:21)
--- NOTE | 2018-02-16 11:24 | CPEKG ---
Test Reason : OPEN Blood Pressure : / mmHG Vent. Rate : 052 BPM Atrial Rate : 000 BPM P-R Int : 164 ms QRS Dur : 140 ms QT Int : 540 ms P-R-T Axes : 000 -16 046 degrees QTc Int : 503 ms Junctional rhythm Probable left ventricular hypertrophy Abnormal T, consider ischemia, anterior leads Prolonged QT interval Prior ECG with atrial fibrillation Confirmed by Jack Luna ([id number]) on 02/16/2018 11:23:46 AM Referred By: Confirmed By:Jack Luna
--- NOTE | 2018-02-16 11:40 | SOAPPROG ---
DAVID Progress Note Assessment/Plan: Assessment:1. junctional rhythm pt has temp pacer in place and o/w is doing well.d/c clonidine and follow..pt would agree to permanent pacer if needed Plan:1. d/c clonidine 02/16/18 11:38 Subjective: i was asked to looka at pt ekg's...she has a long h/o afib and today's ekg suggests junctional rhythm..reviewing her meds she on n clonidine which can cause holly cardia and heart block...saw pt who is feeling well today and had a good nights sleep Objective: Vital Signs Temp Pulse Resp BP Pulse Ox 36.9 C 52 L 19 154/78 H 2 L 02/16/18 08:00 02/16/18 08:00 02/16/18 08:00 02/16/18 08:00 02/16/18 08:00 Laboratory Results 02/16/18 05:15 02/16/18 05:15 02/15/18 02/16/18 02/17/18 05:59 05:59 05:59 Intake Total 1250 1700 Output Total 625 750 Balance 625 950 PT 18.5 SEC (12.0-15.0) H 02/16/18 05:15 INR 1.53 (0.83-1.16) H 02/16/18 05:15 ICD10 Worksheet Patient Problems: Problems Problem Status Onset Acute blood loss anemia Acute Chronic anticoagulation Acute Moderate to severe mitral regurgitation Acute S/P Maze operation for atrial fibrillation Acute ~02/12/18 S/P aortic valve replacement with bioprosthetic valve Acute ~02/12/18 S/P tricuspid valve repair Acute ~02/12/18 Severe aortic valve stenosis Acute Severe tricuspid regurgitation Acute Status post mitral valve annuloplasty Acute ~02/12/18 Valvular cardiomyopathy Acute Afib Chronic CAD (coronary artery disease) Chronic Cervical stenosis of spinal canal Chronic DM2 (diabetes mellitus, type 2) Chronic HLD (hyperlipidemia) Chronic HTN (hypertension) Chronic Vertebral artery stenosis Chronic
[2018-02-16] MEDS ORDERED: POTASSIUM CL 20 MEQ TAB PO ONE (12:00)
--- NOTE | 2018-02-16 12:19 | ASMTCMCOM ---
CM Note CM Note Notes: Pts case discussed in tx rounds. Therapies have cleared pt to d/c home without any needs. Pt will most likely attend outpatient cardiac rehab. CM available for changes. Plan: Independent w/ supportive family Date Signed: 02/16/2018 12:18 PM Electronically Signed By:KARL Zelaya
[2018-02-16] MEDS: WARFARIN SODIUM 1 MG TAB PO SCH (15:32)
--- NOTE | 2018-02-16 15:53 | ECHO ---
[email or web address] [address] Main: [phone] Fax: Transthoracic Echocardiogram Name: LEI BURTON MR#: [id number] Study Date: 02/16/2018 Study Time: 03:02 PM Date of : 1945 Age: 72 year(s) Height: 160 cm (63 in.) Weight: 87.09 kg (192 lb.) BSA: 1.9 m2 Gender: Female Examination: Echo Indication: baseline postop s/p AVR23 CE magna, MVA32 ring, TVA32 ring Image Quality: Adequate Contrast: Requested by: Ekta Mccracken BP: 140 mmHg/56 mmHg Heart Rate: Rhythm: Indication: baseline postop s/p AVR23 CE magna, MVA32 ring, TVA32 ring Procedure Staff Tick Eradicator: Yamilex Carlin [facility] Reading Physician: Khanh Sheriff MD Requesting Provider: Conclusions: Normal size left ventricle. Normal global systolic LV function. The ejection fraction is visually estimated to be 60 %. No regional wall motion abnormality. Normal RV function. An annuloplasty ring is noted in the mitral valve position. The mitral valve prosthesis exhibits normal function. No MV prosthesis regurgitation. The aortic valve is a bioprosthesis. The prosthetic aortic valve is normal. The orifice motion of the prosthetic aortic valve is normal. No prosthesis regurgitation. There is a tricuspid valve ring. The prosthetic tricuspid valve is normal. The orifice motion of the tricuspid prosthesis is normal. No prosthesis regurgitation. No pericardial effusion. There is a pleural effusion present. Measurements: Chambers Valvular Assessment AV/MV Valvular Assessment TV/PV Normal Normal Normal Name Value Range Name Value Range Name Value Range Ao Priya (2D): 2.6 cm (1.4 cm-2.6 AV Vmax: 2.79 m/s (1 m/s-1.7 TV Vmax: 1.31 m/s (0.3 m/s-0.7 cm) m/s) m/s) IVSd (2D): 1.0 cm (0.6 cm-1.1 AV maxP mmHg ( - ) TV Vmean: 0.82 m/s ( - ) cm) AV meanP mmHg ( - ) TV PGmax: 7 mmHg ( - ) LVDd (2D): 4.3 cm (3.9 cm-5.3 BONNY (VTI): 0.9 cm ( - ) TV PGmean: 3 mmHg ( - ) cm) MV E Vmax: 1.38 m/s ( - ) TV VTI: 35.40 cm ( - ) Patient: LEI BURTON Study Date: 02/16/2018 Page 1 of 3 03:02 PM LVDs (2D): 2.6 cm (2.1 cm-4 MV A Vmax: 0.33 m/s ( - ) TR Vmax: 2.57 mm/s ( - ) cm) MV E/A: 4.18 ( - ) TR PGmax: 26 mmHg ( - ) LVPWd (2D): 1.0 cm ( - ) MV meanP mmHg ( - ) syst. PAP: 31 mmHg ( - ) LVOTd 1.9 cm 1.9 cm mm MV PHT: 0.101 s ( - ) PV Vmax: 0.96 m/s (0.6 m/s-0.9 LVEF (BP): 66 % (>=55 %) MVA (Vmax): 1.1 m/s ( - ) m/s) Visual EF: 60 % MVA (PHT): 2.2 s ( - ) PV PGmax: 4 mmHg ( - ) RVDd(2D): 3.1 cm (1.9 cm-3.8 cmmm) Continued Measurements: Chambers Valvular Assessment AV/MV Valvular Assessment TV/PV Name Value Name Value Name Value LADs: 4.4 cm MV DecTime: 292 m/s CVP (est.): 5 mmHg LADs Lon.4 cm MV VTI: 48.00 cm LA Area: 23.8 cm2 LA Volume: 78 ml LA Volume Index: 41.1 ml/m2 RA Area: 16.5 cm2 Additional Vessels Name Value Ao Ascendin.9 cm Inferior Vena Cava: 1.4 cm Findings: Left Ventricle: Normal size left ventricle. No LV hypertrophy. Normal global systolic LV function. The ejection fraction is visually estimated to be 60 %. No regional wall motion abnormality. Unable to assess diastolic dysfunction. Right Ventricle: Upper normal size right ventricle. Normal RV function. Left Atrium: The left atrium is mildly dilated. Right Atrium: The right atrium is normal in size. Mitral Valve: An annuloplasty ring is noted in the mitral valve position. The mitral valve prosthesis exhibits normal function. The prosthetic mitral valve is normal. Prosthetic mitral valve orifice motion is normal. No MV prosthesis regurgitation. Aortic Valve: The aortic valve is a bioprosthesis. Normal functioning aortic valve prosthesis. The prosthetic aortic valve is normal. The orifice motion of the prosthetic aortic valve is normal. No prosthesis regurgitation. Tricuspid Valve: There is a tricuspid valve ring. Tricuspid valve prosthesis function is normal. The prosthetic tricuspid valve is normal. The orifice motion of the tricuspid prosthesis is normal. No prosthesis regurgitation. Pulmonic Valve: The pulmonic valve is normal in appearance and function. Trivial pulmonic valve regurgitation. Aorta: The aorta is normal. Normal size aortic root measuring 2.6 cm. Normal size ascending aorta measuring 2.9 cm. IVC: The IVC is normal sized. Pericardium: No pericardial effusion. There is a pleural effusion present. Patient: LEI BURTON Study Date: 02/16/2018 Page 2 of 3 03:02 PM (No Signature Object) Patient: LEI BURTON Study Date: 02/16/2018 Page 3 of 3 03:02 PM [id number]
--- NOTE | 2018-02-16 17:14 | HOSPPROG ---
Hospitalist Progress Note Assessment/Plan: * DM II -well controlled as outpatient HgA1c 5.3% -holding metformin due to recent ARF -continue Insulin SS -restart metformin when no further hemodynamic instability * ARF -cardiorenal due to cardiac tamponade -now improved * s/p AVR, also MV/TV repair -per Dr. Hoffman team -warfarin * Post - op anemia -feels better after transfusions * Acute on chronic diastolic CHF -lasix per surgery * Afib -per surgery * PVD s/p carotid stent * CAD/stent * Obesity BMI 33 Subjective: feels well Objective: Vital Signs Temp Pulse Resp BP Pulse Ox 36.8 C 52 L 21 H 165/68 H 94 02/16/18 16:00 02/16/18 16:00 02/16/18 16:00 02/16/18 16:00 02/16/18 16:00 Laboratory Results 02/16/18 05:15 02/16/18 05:15 02/15/18 02/16/18 02/17/18 05:59 05:59 05:59 Intake Total 1250 1700 120 Output Total 625 750 300 Balance 625 950 -180 PT 18.5 SEC (12.0-15.0) H 02/16/18 05:15 INR 1.53 (0.83-1.16) H 02/16/18 05:15 - Physical Exam Constitutional: no apparent distress, appears nourished, not in pain Cardiovascular: regular rate and rhythym, no murmur, rub, or gallop Respiratory: no respiratory distress, no rales or rhonchi, clear to auscultation Gastrointestinal: normoactive bowel sounds, soft, non-tender abdomen, no palpable masses Skin: no rashes or abrasions, no fluctuance, no induration Neurologic: AAOx3, sensation intact bilaterally Psychiatric: interacting appropriately, not anxious, not encephalopathic, thought process linear ICD10 Worksheet Patient Problems: Problems Problem Status Onset Acute blood loss anemia Acute S/P Maze operation for atrial fibrillation Acute ~02/12/18 S/P tricuspid valve repair Acute ~02/12/18 Status post mitral valve annuloplasty Acute ~02/12/18 S/P aortic valve replacement with bioprosthetic valve Acute ~02/12/18 Valvular cardiomyopathy Acute Chronic anticoagulation Acute Severe tricuspid regurgitation Acute Moderate to severe mitral regurgitation Acute Severe aortic valve stenosis Acute CAD (coronary artery disease) Chronic DM2 (diabetes mellitus, type 2) Chronic Afib Chronic HLD (hyperlipidemia) Chronic Cervical stenosis of spinal canal Chronic HTN (hypertension) Chronic Vertebral artery stenosis Chronic
[2018-02-16] MEDS: CEPACOL LOZENGE PO PRN ×2 (21:12→23:33)
[2018-02-16] MEDS: ONDANSETRON DISINTEGRATING 4 MG TAB PO PRN (23:32)
[2018-02-17] MEDS: CEPACOL LOZENGE PO PRN ×2 (02:46→10:10)
[2018-02-17] MEDS: LEVOTHYROXINE 88 MCG TAB PO SCH (03:00)
[2018-02-17] MEDS: ACETAMINOPHEN 500 MG TAB PO PRN ×3 (03:00→15:52)
[2018-02-17 03:19] LABS: INR 1.54 (0.83-1.16); PROTIME(PATIENT) 18.6 SEC (12.0-15.0)
--- NOTE | 2018-02-17 07:05 | SOAPPROG ---
SOAP Progress Note Assessment/Plan: POD #5: AVR with #23 Magna bioprosthesis, MV repair with #32 Physio annuloplasty ring, TV repair with #32 Bradley annuloplasty ring, Collins-Maze 4, AtriClip exclusion of ALEC POD #4: Re-exploration, oversew of superior vena cava cannulation site, chest tube placement Severe /MR/TR s/p AVR, MVA, TVA - Coumadin for mitral and tricuspid ring thromboprophylaxis as per CM 4, adjunctive ASA Permanent atrial fibrillation s/p CM4 - JR in 50s, EP on board for possible PPM - Coumadin, INR goal 2-3, duration as per CM 4 protocol Acute blood loss anemia with coagulopathy - Stable Chronic diastolic CHF, class III with valvular cardiomyopathy - Lasix/ARB DM 2, A1c 5.3% - Continue ISS - Reintroduction of Metformin as tolerated as per hospitalist HTN - Continue ARB, hydralazine prn SBP > 160 - BB/CCB/clonidine avoided d/t JR DVT prophylaxis - Coumadin/SCDs Disposition - Home as per PT once medically stable Subjective: Feels well. Denies pain/SOB. Objective: Vital Signs Temp Pulse Resp BP Pulse Ox 36.6 C 50 L 18 144/68 H 97 02/17/18 03:40 02/17/18 03:40 02/17/18 03:40 02/17/18 03:40 02/17/18 03:40 Laboratory Results 02/16/18 05:15 02/17/18 03:00 02/16/18 02/17/18 02/18/18 05:59 05:59 05:59 Intake Total 1700 1420 Output Total 750 600 50 Balance 950 820 -50 PT 18.6 SEC (12.0-15.0) H 02/17/18 03:00 INR 1.54 (0.83-1.16) H 02/17/18 03:00 Physical Exam - Physical Exam General Appearance: WD/WN, alert, no apparent distress EENT: No scleral icterus (R), No scleral icterus (L) Neck: normal inspection Respiratory: No respiratory distress Cardiac/Chest: bradycardia Abdomen: non-tender, soft, No distended Skin: normal color, warm/dry Extremities: pedal edema Neuro/Psych: no motor/sensory deficits, alert, normal mood/affect, oriented x 3 ICD10 Worksheet Patient Problems: Problems Problem Status Onset Acute blood loss anemia Acute Chronic anticoagulation Acute Moderate to severe mitral regurgitation Acute S/P Maze operation for atrial fibrillation Acute ~02/12/18 S/P aortic valve replacement with bioprosthetic valve Acute ~02/12/18 S/P tricuspid valve repair Acute ~02/12/18 Severe aortic valve stenosis Acute Severe tricuspid regurgitation Acute Status post mitral valve annuloplasty Acute ~02/12/18 Valvular cardiomyopathy Acute Afib Chronic CAD (coronary artery disease) Chronic Cervical stenosis of spinal canal Chronic DM2 (diabetes mellitus, type 2) Chronic HLD (hyperlipidemia) Chronic HTN (hypertension) Chronic Vertebral artery stenosis Chronic
[2018-02-17] MEDS: LOSARTAN POTASSIUM 25 MG TAB PO SCH (10:00)
[2018-02-17] MEDS: PANTOPRAZOLE SODIUM 40 MG TAB PO SCH (10:00)
[2018-02-17] MEDS: ASPIRIN 81 MG CHEWABLE TAB PO SCH (10:00)
[2018-02-17] MEDS: FUROSEMIDE 40 MG/4 ML VIAL IVP SCH ×2 (10:00→15:40)
--- NOTE | 2018-02-17 10:31 | PDCARPN ---
Cardiology Progress Note Assessment/Plan: Assessment: Junctional rhythm status post Maze procedure , bioprosthetic aortic valve, mitral valve repair, tricuspid valve repair, left atrial appendage exclusion Plan: ECG including with intracardiac atrial electrogram confirm junctional rhythm. Patient is hemodynamically stable. Ventricular rate 50 beats per minute. Would like to wait 48 hr prior to permanent pacing. Plan permanent pacemaker on Monday, earlier if hemodynamically unstable. Temporary epicardial wires for atrial and ventricular pacing in place, threshold on ventricular wire is 1.2 volts 02/17/18 10:31 Subjective: Reports no complaints Reviewed/Discussed With: multidisciplinary team Time Spent with Patient: greater than 25 minutes Time Spent with Patient: Greater than 25 minutes spent on this patients care, greater than 50% of time spent counseling, educating, and coordinating care regarding the above mentioned plan. Objective: Vital Signs (8 Hrs) Temp Pulse Resp BP Pulse Ox 02/17/18 08:00 36.6 C 51 L 19 151/70 H 97 02/17/18 03:40 36.6 C 50 L 18 144/68 H 97 Intake/Output (24 Hrs) 02/15/18 02/16/18 02/17/18 11:59 11:59 11:59 Intake Total 1050 1620 1300 Output Total 540 750 650 Balance 510 870 650 Intake: Oral (ml) [id number] Packed Red Blood Cells ( 1050 ml) Output: Urine (ml) 540 750 650 Bedside Commode 140 Toilet 400 750 650 Other: Weight 86.5 kg 87.3 kg 87.8 kg Output Comment Toilet missed hat Number of Voids Bedside Commode 1 Toilet 1 1 1 Number of Stools Toilet 1 Result Diagrams: 02/16/18 05:15 02/17/18 03:00 Telemetry: Junctional rhythm Echocardiogram: Junctional rhythm, EKG was repeated with V1 attached to atrial wire, no atrial activity was seen. ICD10 Worksheet Patient Problems: Problems Problem Status Onset Acute blood loss anemia Acute S/P Maze operation for atrial fibrillation Acute ~02/12/18 S/P tricuspid valve repair Acute ~02/12/18 Status post mitral valve annuloplasty Acute ~02/12/18 S/P aortic valve replacement with bioprosthetic valve Acute ~02/12/18 Valvular cardiomyopathy Acute Chronic anticoagulation Acute Severe tricuspid regurgitation Acute Moderate to severe mitral regurgitation Acute Severe aortic valve stenosis Acute CAD (coronary artery disease) Chronic DM2 (diabetes mellitus, type 2) Chronic Afib Chronic HLD (hyperlipidemia) Chronic Cervical stenosis of spinal canal Chronic HTN (hypertension) Chronic Vertebral artery stenosis Chronic
[2018-02-17] MEDS: INSULIN REGULAR HUMAN 100 UNIT/ML UNIT SC SCH ×4 (12:36→21:01)
[2018-02-17] MEDS: WARFARIN SODIUM 1 MG TAB PO SCH (15:40)
[2018-02-17] MEDS ORDERED: LOSARTAN POTASSIUM 25 MG TAB PO ONE (15:58)
--- NOTE | 2018-02-17 16:56 | HOSPPROG ---
Hospitalist Progress Note Assessment/Plan: * DM II -well controlled as outpatient HgA1c 5.3% -holding metformin due to recent ARF -continue Insulin SS -restart metformin when PO intake normalizes * ARF -cardiorenal due to cardiac tamponade -now improved * s/p AVR, also MV/TV repair -per Dr. Hoffman team -warfarin * Post - op anemia -feels better after transfusions * Acute on chronic diastolic CHF -lasix per surgery * Afib -per surgery * PVD s/p carotid stent * CAD/stent * Obesity BMI 33 Subjective: Not taking PO well yet Objective: Vital Signs Temp Pulse Resp BP Pulse Ox 36.7 C 68 18 153/69 H 95 02/17/18 15:02 02/17/18 15:02 02/17/18 15:02 02/17/18 16:53 02/17/18 15:02 Laboratory Results 02/16/18 05:15 02/17/18 03:00 02/16/18 02/17/18 02/18/18 05:59 05:59 05:59 Intake Total 1700 1420 500 Output Total 750 700 50 Balance 950 720 450 PT 18.6 SEC (12.0-15.0) H 02/17/18 03:00 INR 1.54 (0.83-1.16) H 02/17/18 03:00 - Physical Exam Constitutional: no apparent distress, appears nourished, not in pain Respiratory: no respiratory distress Neurologic: AAOx3, sensation intact bilaterally Psychiatric: interacting appropriately, not anxious, not encephalopathic, thought process linear ICD10 Worksheet Patient Problems: Problems Problem Status Onset Acute blood loss anemia Acute S/P Maze operation for atrial fibrillation Acute ~02/12/18 S/P tricuspid valve repair Acute ~02/12/18 Status post mitral valve annuloplasty Acute ~02/12/18 S/P aortic valve replacement with bioprosthetic valve Acute ~02/12/18 Valvular cardiomyopathy Acute Chronic anticoagulation Acute Severe tricuspid regurgitation Acute Moderate to severe mitral regurgitation Acute Severe aortic valve stenosis Acute CAD (coronary artery disease) Chronic DM2 (diabetes mellitus, type 2) Chronic Afib Chronic HLD (hyperlipidemia) Chronic Cervical stenosis of spinal canal Chronic HTN (hypertension) Chronic Vertebral artery stenosis Chronic
[2018-02-17] MEDS: metFORMIN HCL 500 MG TAB PO SCH (18:21)
[2018-02-17] MEDS: HYDROCODONE/APAP 5/325 TAB PO PRN (21:02)
[2018-02-18] MEDS: LEVOTHYROXINE 88 MCG TAB PO SCH (05:08)
[2018-02-18] MEDS: ACETAMINOPHEN 500 MG TAB PO PRN ×3 (06:04→23:52)
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
[2018-02-18] MEDS: PANTOPRAZOLE SODIUM 40 MG TAB PO SCH (08:57)
[2018-02-18] MEDS: FUROSEMIDE 40 MG/4 ML VIAL IVP SCH ×2 (08:57→15:05)
[2018-02-18] MEDS: ASPIRIN 81 MG CHEWABLE TAB PO SCH (08:57)
[2018-02-18] MEDS: guaiFENesin 600 MG TAB.ER PO SCH ×2 (08:57→20:21)
[2018-02-18] MEDS: INSULIN REGULAR HUMAN 100 UNIT/ML UNIT SC SCH ×4 (08:58→21:52)
[2018-02-18] MEDS: metFORMIN HCL 500 MG TAB PO SCH ×2 (08:58→17:40)
[2018-02-18] MEDS: LOSARTAN POTASSIUM 50 MG TAB PO SCH (08:58)
--- NOTE | 2018-02-18 09:36 | PDCARPN ---
Cardiology Progress Note Assessment/Plan: Assessment: Junctional rhythm status post Maze procedure , bioprosthetic aortic valve, mitral valve repair, tricuspid valve repair, left atrial appendage exclusion Plan: Continues to remain in junctional rhythm, heart rate 70 beats per minute. With exercise sinus activity noted, rates up to 75 beats per minute. Discussed with Dr. Hoffman, will observe for another 24-48 hours. If does not have consistent sinus rhythm , Plan pacemaker on Monday02/18/18 09:35 Subjective: Feels well, reports no symptoms Reviewed/Discussed With: multidisciplinary team (Dr. Jan Hoffman) Time Spent with Patient: greater than 25 minutes Time Spent with Patient: Greater than 25 minutes spent on this patients care, greater than 50% of time spent counseling, educating, and coordinating care regarding the above mentioned plan. Objective: Vital Signs (8 Hrs) Temp Pulse Resp BP Pulse Ox 02/18/18 07:58 36.7 C 57 L 14 178/76 H 95 02/18/18 06:00 63 158/80 H 93 02/18/18 04:00 36.6 C 57 L 19 169/71 H 98 Intake/Output (24 Hrs) 02/16/18 02/17/18 02/18/18 11:59 11:59 11:59 Intake Total 1620 1300 1100 Output Total 750 650 275 Balance 870 650 825 Intake: Oral (ml) 570 1300 1100 Packed Red Blood Cells ( 1050 ml) Output: Urine (ml) 750 650 275 Toilet 750 650 275 Other: Weight 87.3 kg 87.8 kg 88 kg Output Comment Toilet missed hat Number of Voids Toilet 1 1 1 Number of Stools Toilet 1 1 Result Diagrams: 02/16/18 05:15 02/17/18 03:00 Telemetry: Junctional rhythm 70 beats per minute, with exercise heart rate up to 75 beats per minute, intermittent P waves noted ICD10 Worksheet Patient Problems: Problems Problem Status Onset Acute blood loss anemia Acute Chronic anticoagulation Acute Moderate to severe mitral regurgitation Acute S/P Maze operation for atrial fibrillation Acute ~02/12/18 S/P aortic valve replacement with bioprosthetic valve Acute ~02/12/18 S/P tricuspid valve repair Acute ~02/12/18 Severe aortic valve stenosis Acute Severe tricuspid regurgitation Acute Status post mitral valve annuloplasty Acute ~02/12/18 Valvular cardiomyopathy Acute Afib Chronic CAD (coronary artery disease) Chronic Cervical stenosis of spinal canal Chronic DM2 (diabetes mellitus, type 2) Chronic HLD (hyperlipidemia) Chronic HTN (hypertension) Chronic Vertebral artery stenosis Chronic
[2018-02-18 09:37] LABS: INR 1.53 (0.83-1.16); PROTIME(PATIENT) 18.5 SEC (12.0-15.0)
[2018-02-18] MEDS: WARFARIN SODIUM 1 MG TAB PO SCH (15:05)
--- NOTE | 2018-02-18 15:51 | HOSPPROG ---
Hospitalist Progress Note Assessment/Plan: * DM II -well controlled as outpatient HgA1c 5.3% -metformin restarted * ARF -cardiorenal due to cardiac tamponade -now improved * s/p AVR, also MV/TV repair -per Dr. Hoffman team -warfarin * Post - op anemia -feels better after transfusions * Acute on chronic diastolic CHF -lasix per surgery * Junctional rhythm post Maze procedure -if does not resolve by Monday, then PCM * PVD s/p carotid stent * CAD/stent * Obesity BMI 33 Subjective: No new complaints, still poor PO intake Objective: Vital Signs Temp Pulse Resp BP Pulse Ox 36.7 C 59 L 20 148/68 H 85 L 02/18/18 11:37 02/18/18 11:37 02/18/18 11:37 02/18/18 11:37 02/18/18 12:45 Laboratory Results 02/16/18 05:15 02/17/18 03:00 02/17/18 02/18/18 02/19/18 05:59 05:59 05:59 Intake Total 1420 1100 Output Total 700 325 200 Balance 720 775 -200 PT 18.5 SEC (12.0-15.0) H 02/18/18 09:05 INR 1.53 (0.83-1.16) H 02/18/18 09:05 - Physical Exam Constitutional: no apparent distress, appears nourished, not in pain Cardiovascular: regular rate and rhythym, no murmur, rub, or gallop Respiratory: no respiratory distress, no rales or rhonchi, clear to auscultation Gastrointestinal: normoactive bowel sounds, soft, non-tender abdomen, no palpable masses Skin: no rashes or abrasions, no fluctuance, no induration Neurologic: AAOx3, sensation intact bilaterally Psychiatric: interacting appropriately, not anxious, not encephalopathic, thought process linear ICD10 Worksheet Patient Problems: Problems Problem Status Onset Acute blood loss anemia Acute S/P Maze operation for atrial fibrillation Acute ~02/12/18 S/P tricuspid valve repair Acute ~02/12/18 Status post mitral valve annuloplasty Acute ~02/12/18 S/P aortic valve replacement with bioprosthetic valve Acute ~02/12/18 Valvular cardiomyopathy Acute Chronic anticoagulation Acute Severe tricuspid regurgitation Acute Moderate to severe mitral regurgitation Acute Severe aortic valve stenosis Acute CAD (coronary artery disease) Chronic DM2 (diabetes mellitus, type 2) Chronic Afib Chronic HLD (hyperlipidemia) Chronic Cervical stenosis of spinal canal Chronic HTN (hypertension) Chronic Vertebral artery stenosis Chronic
[2018-02-18] MEDS: HYDROCODONE/APAP 5/325 TAB PO PRN (20:22)
[2018-02-19] MEDS: LEVOTHYROXINE 88 MCG TAB PO SCH (03:55)
[2018-02-19 04:43] LABS: INR 1.56 (0.83-1.16); PROTIME(PATIENT) 18.8 SEC (12.0-15.0)
[2018-02-19 04:51] LABS: PLATELET COUNT 223 10^3/uL (150-400)
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
--- NOTE | 2018-02-19 07:48 | PDHOMEO2F ---
Home Oxygen Face to Face Home Orders: I certify that a physician or a nurse practitioner or physician's television production assistant has had a [id number] encounter with this patient on the date of this order due to the diagnosis listed, which relates to the primary reason the patient requires home oxygen. Alternative treatments have been tried, or considered, and deemed ineffective. It is anticipated that supplemental oxygen will result in improvement with treatment. Home oxygen qualifying diagnosis: CHF, SOB, hypoxemia SpO2 on room air (%): 85 Frequency of home oxygen needed: continuous Home oxygen liters per minute: 2 Home oxygen delivery device: nasal cannula Concentrator: Yes E-tanks for mobility and back up: Yes If ordering portable O2, is the patient mobile in the home?: Yes I certify that, based on these findings, the home oxygen is medically necessary for this patient for the following length of time. Length of time home oxygen needed: 1 month
[2018-02-19] MEDS: metFORMIN HCL 500 MG TAB PO SCH (08:24)
[2018-02-19] MEDS: ASPIRIN 81 MG CHEWABLE TAB PO SCH (08:24)
[2018-02-19] MEDS: guaiFENesin 600 MG TAB.ER PO SCH (08:24)
[2018-02-19] MEDS: LOSARTAN POTASSIUM 50 MG TAB PO SCH (08:24)
[2018-02-19] MEDS: PANTOPRAZOLE SODIUM 40 MG TAB PO SCH (08:24)
[2018-02-19] MEDS: ACETAMINOPHEN 500 MG TAB PO PRN (08:36)
[2018-02-19] MEDS ORDERED: POTASSIUM CL 20 MEQ TAB PO SCH (09:00)
[2018-02-19] MEDS ORDERED: FUROSEMIDE 40 MG TAB PO SCH (09:00)
--- NOTE | 2018-02-19 10:44 | CPEKG ---
Test Reason : OPEN Blood Pressure : / mmHG Vent. Rate : 052 BPM Atrial Rate : 000 BPM P-R Int : 256 ms QRS Dur : 105 ms QT Int : 489 ms P-R-T Axes : 000 051 022 degrees QTc Int : 455 ms Junctional rhythm Confirmed by Jack Luna ([id number]) on 02/19/2018 10:44:03 AM Referred By: Confirmed By:Jack Luna
--- NOTE | 2018-02-19 10:44 | CPEKG ---
Test Reason : OPEN Blood Pressure : / mmHG Vent. Rate : 052 BPM Atrial Rate : 000 BPM P-R Int : 188 ms QRS Dur : 108 ms QT Int : 496 ms P-R-T Axes : 000 052 017 degrees QTc Int : 462 ms Junctional rhythm Confirmed by Jack Luna ([id number]) on 02/19/2018 10:44:29 AM Referred By: Confirmed By:Jack Luna
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
[2018-02-19 11:32] VITALS: BP 96/65
--- NOTE | 2018-02-19 12:06 | ASDISCHSUM ---
Discharge Information Plan Status:Home with No Needs Medically Cleared to Leave:02/19/2018 Discharge Date:02/19/2018 CM D/C Disposition:Home, Routine, Self-Care ADT D/C Disposition:Home, Routine, Self-Care Projected Discharge Date:02/19/2018 Transportation at D/C:Family Discharge Delay Reason: Follow-Up Date:02/19/2018 Discharge Slot: Final Diagnosis:Hydronephrosis, Plasmacytoma Placement Information Patient Contact Information Contact Name:HUMPHREY Relationship: Address:[address] [place] [address] City:[facility] Phone: [facility]/Zip Code:[place] [address] Email: Financial Information Financial Class:Medicare Primary Plan Desc:MEDICARE INPATIENT Primary Plan Number:[id number] Secondary Plan Desc:[facility] Secondary Plan Number:[id number] Assessment Information LACE LACE Acuity / Level of Answers: Yes Care: Did the patient have an inpatient admission? Comorbidities - select Answers: Cerebrovascular disease all that apply (CVA, TIA, aneurysms, vasc ular dementia) Congestive heart failure Coronary Artery Disease Diabetes (uncontrolled or controlled) Opioid dependence / Chronic pain Previous myocardial infarction Other Notes: HTN; HLD; AFib # of Emergency department Answers: 1-2 visits in the last 6 months Social determinants Answers: Mental health diagnosis (anxiety, depression, pers onality disorders, etc.) Score: 19 Date Signed: 02/13/2018 10:30 AM Electronically Signed By:Violeta Augustine [facility] CM Progress Note 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 He has a Hx of CA NHL and GERD. Patient lives with his . He was transferred here [place]. Bother is here visiting and needs a letter for the airlines. CM to follow. Date Signed: 02/13/2018 04:40 PM Electronically Signed By:Kristina Solorio LCSW [facility] CM Progress Note CM Note CM Note Notes: Pts case discussed in tx rounds. Therapies have cleared pt to d/c home without any needs. Pt will most likely attend outpatient cardiac rehab. CM available for changes. Plan: Independent w/ supportive family Date Signed: 02/16/2018 12:18 PM Electronically Signed By:KARL Zelaya Case Management Discharge Plan Note Case Management Discharge Discharge Order Complete? Answers: Yes Patient to Obtain Answers: via Family Medications Transportation Arranged Answers: Family/Friends Discharge Comments Notes: Pt is discharging home today with family and no CM needs. She will start outpatient cardiac rehab per Dr Hoffman's orders. Date Signed: 02/19/2018 12:04 PM Electronically Signed By:JANNETTE Woodson Intervention Information
--- NOTE | 2018-02-19 12:12 | PDCARPN ---
Cardiology Progress Note Chief Complaint: Patient reports she is ready to go home. Assessment/Plan: Assessment: 72-year-old female with significant past history carotid artery disease status post carotid enterectomy 2014, left internal carotid artery PCI 06/2007 after CVA permanent atrial fibrillation, CAD anemia hypothyroidism severe . Status post aortic valve replacement (bioprosthetic) mitral valve annuloplasty ring, tricuspid valve annuloplasty, Collins Maze procedure on February [address] Hoffman. Postop junctional rhythm, initial rates in 50s. Increased heart rate 60s and 70s last 2 days. No malignant arrhythmias or pauses noted. 02/19/2018: Maintaining junctional rhythms, rates up to the mid 70s. Patient reports no lightheadedness, near-syncope or syncopal events. Occasional sinus rhythm noted. Patient reports no chest pressure or pain suggesting ischemia. Plan: 1. Junctional escape rhythm: Noted status post Maze procedure and bioprosthetic valve replacement and repair. Continue improvement in rate. Hemodynamically stable. No malignant pauses or arrhythmias noted. Discussed with Dr. Cai, recommendation no pacemaker at this time. Patient will go home on a 30 day monitor, should follow up with CT surgery and her regular web operations administrator, pending results of monitoring, if pacemaker is needed at that time , Dr. Cai would implant. 2. Severe , MR, TR: Status post bioprosthetic AVR, mitral valve annuloplasty , tricuspid annuloplasty. She appears to be fairly euvolemic. On diuretic therapy. Anticoagulation per surgery recommendation. Patient will need prophylactic antibiotics before any invasive procedure. 3. Permanent atrial fibrillation: Status post Collins Maze procedure, noted junctional rhythm initially in 50s, with improvement into the 70s. Occasional sinus beat noted. Anticoagulation with Coumadin as mentioned above, 30 day monitor ordered for by CT surgery on discharge. 4. Chronic diastolic heart failure: BP controlled, continue on Arb. Continue on diuretic therapy. 5. Hypertension: Arb and diuretic therapy. Avoid beta-kendra and, calcium channel kendra, in all AV akbar agents due to junctional rhythm. Patient is planning to be discharged home today. Discussion of planned and follow-up went over with her. She will start cardiac rehab, follow up with CT surgery, and Dr. Muñoz in outpatient setting. 02/19/18 12:11 Subjective: She does report fatigue, but denies of any chest pain or pressure. Reports no orthopnea, PND, palpitations, lightheadedness, near-syncope or syncopal events. Reviewed/Discussed With: other (Dr Cai and Nena GARCIA CT surgery) Objective: Vital Signs (8 Hrs) Temp Pulse Resp BP Pulse Ox 02/19/18 11:31 70 18 96/65 L 93 02/19/18 08:28 85 L 02/19/18 07:53 36.6 C 58 L 14 154/63 H 97 Intake/Output (24 Hrs) 02/18/18 02/19/18 02/20/18 05:59 05:59 05:59 Intake Total 1100 855 Output Total 325 1250 Balance 775 -395 Intake: Oral (ml) 1100 855 IV Intake (ml) 0 Output: Urine (ml) 325 1250 Toilet 325 1250 Other: Weight 88 kg 88.1 kg Output Comment Toilet missed hat Number of Voids Toilet 1 1 Number of Stools Toilet 1 1 Result Diagrams: 02/19/18 04:12 02/19/18 04:12 - Physical Exam Constitutional: no apparent distress, obese (Mild) Ears, Nose, Mouth, Throat: moist mucous membranes Cardiovascular: regular rate and rhythm (Junctional rhythm in 70s), no rubs, pulses symmetric bilat, No jugular vein distention, No carotid bruit Peripheral Pulses: 1+: dorsalis-pedis (R), dorsalis-pedis (L), 2+: carotid (R), carotid (L) Respiratory: other (Diminished in bases, no rhonchi, rales, or wheezing noted. No accessary muscle use, no intercostal muscle retraction noted.) Gastrointestinal: normoactive bowel sounds Skin: no rashes, warm, no edema Neurologic: AAOx3 Psychiatric: cooperative, interactive, following commands ICD10 Worksheet Patient Problems: Problems Problem Status Onset Acute blood loss anemia Acute Chronic anticoagulation Acute Moderate to severe mitral regurgitation Acute S/P Maze operation for atrial fibrillation Acute ~02/12/18 S/P aortic valve replacement with bioprosthetic valve Acute ~02/12/18 S/P tricuspid valve repair Acute ~02/12/18 Severe aortic valve stenosis Acute Severe tricuspid regurgitation Acute Status post mitral valve annuloplasty Acute ~02/12/18 Valvular cardiomyopathy Acute Afib Chronic CAD (coronary artery disease) Chronic Cervical stenosis of spinal canal Chronic DM2 (diabetes mellitus, type 2) Chronic HLD (hyperlipidemia) Chronic HTN (hypertension) Chronic Vertebral artery stenosis Chronic
== END 2018-02-19 12:44 | disposition home or self-care (01) | DRG 220 ==
LOC: F3N 07:45 → F2N 14:15 → F2W 02-14 14:05
PROVIDERS: ADMIT Thoracic Surgery (Cardiothoracic Vascular Surgery); ATTEND Thoracic Surgery (Cardiothoracic Vascular Surgery)
PROC: 02RF08Z Replacement of Aortic Valve with Zooplastic Tissue, Open Approach (ICD-10-PCS; principal; 2018-02-12 10:00)
PROC: 02UJ0JZ Supplement Tricuspid Valve with Synthetic Substitute, Open Approach (ICD-10-PCS; principal; 2018-02-12 10:00)
PROC: 5A1221Z Performance of Cardiac Output, Continuous (ICD-10-PCS; principal; 2018-02-12 10:00)
PROC: 02580ZZ Destruction of Conduction Mechanism, Open Approach (ICD-10-PCS; principal; 2018-02-12 10:00)
PROC: 02UG0JZ Supplement Mitral Valve with Synthetic Substitute, Open Approach (ICD-10-PCS; principal; 2018-02-12 10:00)
PROC: 02L70CK Occlusion of Left Atrial Appendage with Extraluminal Device, Open Approach (ICD-10-PCS; principal; 2018-02-12 10:00)
PROC: 0WCD0ZZ Extirpation of Matter from Pericardial Cavity, Open Approach (ICD-10-PCS; 2018-02-13)
PROC: 30233N1 Transfusion of Nonautologous Red Blood Cells into Peripheral Vein, Percutaneous Approach (ICD-10-PCS; 2018-02-13)
PROC: 30233R1 Transfusion of Nonautologous Platelets into Peripheral Vein, Percutaneous Approach (ICD-10-PCS; 2018-02-13)
PROC: 02Q Heart and Great Vessels, Repair (ICD-10-PCS; 2018-02-13)
PROC: 30233K1 Transfusion of Nonautologous Frozen Plasma into Peripheral Vein, Percutaneous Approach (ICD-10-PCS; 2018-02-13)
DX: I08.1 Rheumatic disorders of both mitral and tricuspid valves (principal); I51.3 Intracardiac thrombosis, not elsewhere classified; I31.9 Disease of pericardium, unspecified; I31.4 Cardiac tamponade; D62 Acute posthemorrhagic anemia; N17.9 Acute kidney failure, unspecified; R00.1 Bradycardia, unspecified; I48.2 Chronic atrial fibrillation; G47.33 Obstructive sleep apnea (adult) (pediatric); I25.10 Atherosclerotic heart disease of native coronary artery without angina pectoris; E11.51 Type 2 diabetes mellitus with diabetic peripheral angiopathy without gangrene; K21.9 Gastro-esophageal reflux disease without esophagitis; E78.5 Hyperlipidemia, unspecified; I73.9 Peripheral vascular disease, unspecified; E66.9 Obesity, unspecified; Z68.33 Body mass index [BMI] 33.0-33.9, adult; Z95.5 Presence of coronary angioplasty implant and graft; Z79.01 Long term (current) use of anticoagulants; Z96.641 Presence of right artificial hip joint; Z87.891 Personal history of nicotine dependence; Z86.73 Personal history of transient ischemic attack (TIA), and cerebral infarction without residual deficits
CPT/HCPCS: 82435-PO; 82565-PO; 82947-PO; 83605-PO; 84132-PO; 84295-PO; 84520-PO; 85014-PO; 97116-GP; 97162-GP; 97166-GO; 97530-GO; 97530-GP; 97535-GO; G8978-GP-CL; G8979-GP-CI; G8980-GP-CJ; G8987-GO-CK; G8988-GO-CI; G8989-GO-CI; J0153; J0282; J0360; J0690; J1100; J1265; J1644; J1815; J1885; J1940; J2001; J2150; J2250; J2260; J2270; J2370; J2405; J2704; J2720; J2765; J2930; J3010; J3475; J3480; P9016; P9017; P9035; P9041; P9100

== ENCOUNTER 2018-02-23 18:16 | Inpatient (IN) | payer OTHER ==
[2018-02-23] MEDS ORDERED: ADENOSINE 6 MG/2 ML VIAL ONE (18:46)
[2018-02-23] MEDS ORDERED: DILTIAZEM 125 MG in D5W 125 ML IV ONE (18:58)
[2018-02-23] MEDS ORDERED: DILTIAZEM 25 MG/5 ML VIAL IVP ONE (18:58)
[2018-02-23 19:20] LABS: PLATELET COUNT 397 10^3/uL (150-400)
[2018-02-23 19:31] LABS: INR 2.26 (0.83-1.16)
--- NOTE | 2018-02-23 20:54 | EDPHY ---
H & P Stated Complaint: Fell at 1630, no loc but now has tingling to face. Recent heart surgery Time Seen by Provider: 02/23/18 18:43 HPI/ROS: CHIEF COMPLAINT: Facial numbness HISTORY OF PRESENT ILLNESS: This is a 72-year-old female who is postop day 8 status post aortic valve replacement with a bioprosthesis and both mitral valve and tricuspid valve ring annuloplasty. She comes to the emergency department with a chief complaint of facial numbness. She has noticed this on and off since coming home from the hospital the on 02/19/2018 the but today she was walking up the steps, tripped, fell forward the, and was able to catch herself. She then fell asleep and when she awoke she noticed that her face felt numb and tingly. She does not believe that she injured herself when she fell forward on the stairs. She did not strike her head or her face. She is not confused, denies visual changes or new weakness. She states that this was a trip and fall, she was not lightheaded and did not faint. She is not having chest pain and does not feel short of breath. She she does report that she has been noticing that her heart rate has been high. She says that this is been the case for at least the past 2 days and her thinks that it has been longer than that. When she was discharged from the hospital she had instructions to hold her digoxin and her Coreg. She continues on Lasix, potassium, losartan, metformin, and Coumadin. REVIEW OF SYSTEMS: A ten system review of systems was performed and is negative with the exception of the items mentioned in the HPI. Past medical history: 1. Aortic valve stenosis 2. Tricuspid valve insufficiency 3. Atrial fibrillation 4. Chronic CHF 5. Sleep apnea 6. Carotid artery stenosis 7. Coronary artery disease 8. CVAs in 2014 in 2018 without residual diff is deficit 9. Iron deficiency anemia 10. Type 2 diabetes mellitus 11. Hypothyroidism 12. GERD 13. Multilevel degenerative disc disease 14. Chronic obesity with BMI over 30 Past surgical history: 1. Aortic valve replacement with bioprosthesis and mitral and tricuspid valve ring annuloplasty is on 02/15/2018 2. Left internal carotid artery stent 3. LAD stent Social history: She lives with her of 59 years. They have 4 children, 3 of whom live in the area. She does not use tobacco products or alcohol. General Appearance: Alert. Vital signs reviewed. Heart rate 164. Initial blood pressure 155/119. Head: Normocephalic atraumatic. Eyes: Pupils equal and round, no conjunctival injection, no discharge. Anicteric. ENT, Mouth: Mucous membranes are moist. Neck: No lymphadenopathy, supple. Respiratory: Lungs sounds are distant. Cardiovascular: Tachycardic. Gastrointestinal: Abdomen is soft and nontender, no masses or organomegaly, bowel sounds normal. Skin: Warm and dry, no rashes on exposed skin, normal color. Extremities: Neurological: Alert and oriented. Moving all four extremities easily and equally. The EOMI. TAMARA. Facial expressions symmetric. Tongue midline. Facial sensation intact to light touch. Psychiatric: Normal affect. - Personal History Current Tetanus Diphtheria and Acellular Pertussis (TDAP): Yes Tetanus Vaccine Date: < 10 YEARS - Medical/Surgical History Hx Asthma: No Hx Chronic Respiratory Disease: No Hx Diabetes: Yes Hx Cardiac Disease: Yes Hx Renal Disease: No Hx Cirrhosis: No Hx Alcoholism: No Hx HIV/AIDS: No Hx Splenectomy or Spleen Trauma: No Other PMH: chf, DM, [place], Stent, CAD, HLD, Afib, bladder lift, Rt KP, CVA, right carotid endarterectomy. OPenheart surgery January 2018. choley - Social History Smoking Status: Former smoker Constitutional: Initial Vital Signs Temperature (C) 37 C 02/23/18 18:20 Heart Rate 149 H 02/23/18 18:20 Respiratory Rate 18 02/23/18 18:20 Blood Pressure 155/119 H 02/23/18 18:20 O2 Sat (%) 96 02/23/18 18:20 O2 Delivery Mode Nasal Cannula O2 (L/minute) 2 Allergies/Adverse Reactions: dextromethorphan Allergy (Verified 02/09/18 17:39) Makes pt hyperactive, tachycardic diazepam [From Valium] Allergy (Verified 02/09/18 17:39) Makes pt hyperactive [id number]-Vah-Cbv Reductase Inhibitor Allergy (Verified 02/09/18 17:39) Musche aches, but tolerates rosuvastatin Home Medications: Medication Instructions Recorded Aspirin [Aspirin 325 mg (*)] 325 mg PO DAILY 04/17/14 Herbals/Supplements -Info Only 1 ea PO DAILY 04/17/14 Lansoprazole 30 mg PO DAILY 04/17/14 Levothyroxine [Synthroid 88 mcg 88 mcg PO DAILY@04 04/17/14 (*)] Warfarin Sodium [Coumadin 1MG (*)] 1 mg PO DAILY@16 04/17/14 metFORMIN HCL [Glucophage 500 mg 1,000 mg PO BIDMEAL 04/17/14 (*)] Rosuvastatin Calcium 5 mg PO Q7D 02/09/18 traZODone [traZODONE 50MG (*)] 50 mg PO HS PRN 02/09/18 Acetaminophen [Tylenol ES 500 mg 500 mg PO Q6H PRN tab 02/19/18 (*)] Furosemide [Lasix 40 MG (*)] 40 mg PO BID@0900,1500 #60 tab 02/19/18 Losartan Potassium [Cozaar 50 mg 50 mg PO DAILY #30 tab 02/19/18 (*)] Potassium Cl [Klor-Con 20 meq (*)] 20 meq PO DAILY #30 tab 02/19/18 guaiFENesin [Mucinex 600 MG (*)] 600 mg PO BID #30 tab.er 02/19/18 Medical Decision Making - Diagnostics EKG Interpretation: 12 lead EKG is interpreted in [place] by emergency department physician. Initial EKG showed what appeared to be in SVT with a rate 164. Repeat EKG showed sinus rhythm with a rate in the 80s. Imaging Results: Imaging Impressions Chest X-Ray 02/23/18 18:46 Impression: Bibasilar consolidations, similar to the prior examination. This probably represents a combination of effusion and atelectasis. ED Course/Re-evaluation: 72-year-old female a days status post aortic valve replacement and both mitral and tricuspid valve ring annuloplasty is a. She presents with heart rate of 164 and an elevated blood pressure. She does not have chest pain or shortness of breath. She is awake and alert. She is complaining of facial numbness. Initial EKG shows what appears to be regular rhythm, SVT with a rate of 164. She was given 1 dose of adenosine 6 mg. Slowing heart rate revealed atrial fibrillation. She quickly reverted to are rate in the 160s. She was started on diltiazem with a bolus followed by intravenous infusion. Following the diltiazem bolus she converted to a sinus rhythm with a rate of 80. She has remained in a sinus rhythm throughout the rest of her emergency department stay. She was initially hypertensive but her blood pressures improved markedly. She remained essentially asymptomatic. The facial numbness resolved and did not recur. She has been taking her Coumadin and has an INR of 2.26. She does have mild elevation in her troponin, not unexpected in this postoperative setting. She is noted to be anemic but her hemoglobin and hemoglobin hematocrit are improved compared to values at discharge. I have spoke with Dr. lCint Gonzalez, cardiothoracic surgery. Cardiothoracic team will be admitting the patient to the hospital. She is being admitted to a monitored bed. I have also spoken with Cardiology. - Data Points Laboratory Results: Laboratory Results 02/23/18 18:40 02/23/18 18:40 02/23/18 02/23/18 02/23/18 19:37 18:40 18:40 WBC RBC Hgb Hct MCV MCH MCHC RDW Plt Count MPV Neut % (Auto) Lymph % (Auto) Lawrence % (Auto) Eos % (Auto) Baso % (Auto) Nucleat RBC Rel Count Absolute Neuts (auto) Absolute Lymphs (auto) Absolute Monos (auto) Absolute Eos (auto) Absolute Basos (auto) Absolute Nucleated RBC Immature Gran % Immature Gran # Platelet Estimate Hypochromasia Microcytic Cells Oval Macrocytes PT 25.0 SEC H SEC (12.0-15.0) INR 2.26 H (0.83-1.16) Sodium 135 mEq/L mEq/L (135-145) Potassium 4.5 mEq/L mEq/L (3.3-5.0) Chloride 93 mEq/L L mEq/L (97-110) Carbon Dioxide 32 mEq/l H mEq/l (22-31) Anion Gap 10 mEq/L mEq/L (6-14) BUN 12 mg/dL mg/dL (7-23) Creatinine 0.6 mg/dL mg/dL (0.6-1.0) Estimated GFR > 60 Glucose 124 mg/dL H mg/dL (70-100) Calcium 9.6 mg/dL mg/dL (8.5-10.4) POC Troponin I 0.20 ng/mL H ng/mL (0.00-0.08) 02/23/18 18:40 WBC 11.97 10^3/uL H 10^3/uL (3.80-9.50) RBC 3.68 10^6/uL L 10^6/uL (4.18-5.33) Hgb 10.9 g/dL L g/dL (12.6-16.3) Hct 33.8 % L % (38.0-47.0) MCV 91.8 fL fL (81.5-99.8) MCH 29.6 pg pg (27.9-34.1) MCHC 32.2 g/dL L g/dL (32.4-36.7) RDW 21.0 % H % (11.5-15.2) Plt Count 397 10^3/uL 10^3/uL (150-400) MPV 9.2 fL fL (8.7-11.7) Neut % (Auto) 76.4 % H % (39.3-74.2) Lymph % (Auto) 7.9 % L % (15.0-45.0) Lawrence % (Auto) 9.0 % % (4.5-13.0) Eos % (Auto) 4.8 % % (0.6-7.6) Baso % (Auto) 0.6 % % (0.3-1.7) Nucleat RBC Rel Count 0.0 % % (0.0-0.2) Absolute Neuts (auto) 9.16 10^3/uL H 10^3/uL (1.70-6.50) Absolute Lymphs (auto) 0.94 10^3/uL L 10^3/uL (1.00-3.00) Absolute Monos (auto) 1.08 10^3/uL H 10^3/uL (0.30-0.80) Absolute Eos (auto) 0.57 10^3/uL H 10^3/uL (0.03-0.40) Absolute Basos (auto) 0.07 10^3/uL 10^3/uL (0.02-0.10) Absolute Nucleated RBC 0.00 10^3/uL 10^3/uL (0-0.01) Immature Gran % 1.3 % H % (0.0-1.1) Immature Gran # 0.15 10^3/uL H 10^3/uL (0.00-0.10) Platelet Estimate ADEQUATE (ADEQ) Hypochromasia 1+ H Microcytic Cells 1+ H Oval Macrocytes 1+ H PT INR Sodium Potassium Chloride Carbon Dioxide Anion Gap BUN Creatinine Estimated GFR Glucose Calcium POC Troponin I Medications Given: Discontinued Medications Diltiazem HCl (Cardizem 25 Mg/5 Ml Vial) 20 mg IVP EDNOW ONE Stop: 02/23/18 18:59 Last Admin: 02/23/18 19:10 Dose: 20 mg Diltiazem HCl 125 mg/ Dextrose 125 mls @ 0 mls/hr IV EDNOW ONE; As Directed PRN Reason: Protocol Stop: 02/23/18 18:59 Last Admin: 02/23/18 19:12 Dose: 125 mls Ondansetron HCl (Zofran Odt) 4 mg PO ONCE ONE Stop: 02/23/18 21:01 Last Admin: 02/23/18 21:02 Dose: 4 mg Point of Care Test Results: Chemistry 02/23/18 19:37 POC Troponin I 0.20 ng/mL H ng/mL (0.00-0.08) Departure - Departure Disposition: [facility] Inpatient Acute Clinical Impression: Afib Qualifiers: Atrial fibrillation type: chronic Qualified Code(s): I48.2 - Chronic atrial fibrillation Condition: Good
[2018-02-23] MEDS ORDERED: ONDANSETRON DISINTEGRATING 4 MG TAB PO ONE (21:00)
[2018-02-23] MEDS ORDERED: ONDANSETRON DISINTEGRATING 4 MG TAB ONE (21:01)
--- NOTE | 2018-02-23 21:20 | CPEKG ---
Test Reason : OPEN Blood Pressure : / mmHG Vent. Rate : 082 BPM Atrial Rate : 082 BPM P-R Int : 259 ms QRS Dur : 092 ms QT Int : 441 ms P-R-T Axes : -40 040 218 degrees QTc Int : 515 ms Sinus rhythm Prolonged NV interval Nonspecific T abnormalities, diffuse leads Prolonged QT interval Confirmed by Anabella Fernandez ([id number]) on 02/23/2018 9:20:14 PM Referred By: Confirmed By:Anabella Fernandez
--- NOTE | 2018-02-23 21:20 | CPEKG ---
Test Reason : OPEN Blood Pressure : / mmHG Vent. Rate : 165 BPM Atrial Rate : 000 BPM P-R Int : 000 ms QRS Dur : 088 ms QT Int : 297 ms P-R-T Axes : 000 044 206 degrees QTc Int : 492 ms Supraventricular tachycardia Nonspecific T abnormalities, lateral leads Confirmed by Anabella Fernandez ([id number]) on 02/23/2018 9:20:08 PM Referred By: Confirmed By:Anabella Fernandez
[2018-02-23] MEDS ORDERED: traZODone 50 MG TAB PO PRN (23:20)
[2018-02-23] MEDS ORDERED: DILTIAZEM 125 MG in D5W 125 ML IV SCH (23:30)
[2018-02-23] MEDS: ACETAMINOPHEN 500 MG TAB PO PRN (23:55)
[2018-02-24] MEDS: LEVOTHYROXINE 88 MCG TAB PO SCH (04:50)
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
[2018-02-24] MEDS: metFORMIN HCL 500 MG TAB PO SCH ×2 (08:15→17:03)
[2018-02-24] MEDS: ACETAMINOPHEN 500 MG TAB PO PRN ×3 (08:16→21:17)
[2018-02-24] MEDS: ASPIRIN 325 MG TAB PO SCH (08:16)
[2018-02-24] MEDS: LOSARTAN POTASSIUM 50 MG TAB PO SCH (08:17)
[2018-02-24] MEDS: POTASSIUM CL 20 MEQ TAB PO SCH (08:17)
[2018-02-24] MEDS: PANTOPRAZOLE SODIUM 40 MG TAB PO SCH (08:17)
[2018-02-24] MEDS ORDERED: FUROSEMIDE 40 MG TAB PO SCH (09:00)
--- NOTE | 2018-02-24 10:38 | ASMTCMCOM ---
CM Note CM Note Notes: Pt presented to the ED w/facial numbness after falling while walking up the stairs at home, pt was able to catch herself and she did not incur any injuries. Pt has a history of A-fib; pt's heart rate was 164 and EKG showed SVT. Pt admitted for cardiac monitoring, Dilt drip. Pt recently discharged home w/family from [facility] 02/19/18 after having aortic valve replacement w/bioprosthesis and mitral and tricuspid ring annuloplasty; pt was d/c'd to follow-up at outpatient cardiac rehab. Pt was d/c'd w/instuctions to hold her Digoxin and Coreg at that time. Pt lives with her , Kalia Granados (H:[phone]; C: [phone]). Pt also has 3 out of 4 of her children living in this area. Exact DC needs TBD but anticipate pt to stabilize and DC home w/family. CM to follow. Date Signed: 02/24/2018 10:37 AM Electronically Signed By:Misty Leo RN
[2018-02-24] MEDS ORDERED: diphenhydrAMINE 25 MG CAP PO PRN (11:04)
[2018-02-24] MEDS ORDERED: AMIODARONE HCL 100 ML IV ONE (12:09)
[2018-02-24] MEDS: METOPROLOL TARTRATE 50 MG TAB PO SCH ×2 (12:43→21:17)
--- NOTE | 2018-02-24 13:30 | PDGENHP ---
History & Physical Chief Complaint:
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
[2018-02-24] MEDS ORDERED: AMIODARONE HCL 100 ML IV PRN (14:29)
[2018-02-24] MEDS ORDERED: DOCUSATE SODIUM 100 MG CAP PO SCH (14:30)
[2018-02-24] MEDS ORDERED: AMIODARONE HCL 200 ML IV SCH (15:00)
[2018-02-24] MEDS ORDERED: AMIODARONE A.FIB-6HR INFSN (ORDER 2/3) PREMIX IV ONE (15:00)
[2018-02-24] MEDS ORDERED: WARFARIN SODIUM 1 MG TAB PO SCH (16:00)
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
[2018-02-24] MEDS ORDERED: AMIODARONE A.FIB-18HR INFSN (ORDER 3/3) IV ONE (21:15)
[2018-02-25] MEDS: ACETAMINOPHEN 500 MG TAB PO PRN ×2 (02:14→14:38)
[2018-02-25 04:03] LABS: INR 2.44 (0.83-1.16); PROTIME(PATIENT) 26.5 SEC (12.0-15.0)
[2018-02-25] MEDS: LEVOTHYROXINE 88 MCG TAB PO SCH (05:40)
[2018-02-25] MEDS: PANTOPRAZOLE SODIUM 40 MG TAB PO SCH (05:42)
[2018-02-25] MEDS: METOPROLOL TARTRATE 50 MG TAB PO SCH (08:06)
[2018-02-25] MEDS: metFORMIN HCL 500 MG TAB PO SCH (08:06)
[2018-02-25] MEDS: LOSARTAN POTASSIUM 50 MG TAB PO SCH (08:07)
[2018-02-25] MEDS: ASPIRIN 325 MG TAB PO SCH (08:08)
[2018-02-25] MEDS: POTASSIUM CL 20 MEQ TAB PO SCH (08:08)
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
[2018-02-25] MEDS ORDERED: FUROSEMIDE 40 MG TAB PO SCH (09:00)
--- NOTE | 2018-02-25 10:48 | CPEKG ---
Test Reason : OPEN Blood Pressure : / mmHG Vent. Rate : 079 BPM Atrial Rate : 000 BPM P-R Int : 141 ms QRS Dur : 092 ms QT Int : 525 ms P-R-T Axes : 143 039 133 degrees QTc Int : 603 ms Atrial tachycardia with variable conduction Nonspecific T abnrm, anterolateral leads Prolonged QT interval Confirmed by Jack Luna ([id number]) on 02/25/2018 10:47:43 AM Referred By: Confirmed By:Jack Luna
[2018-02-25] MEDS ORDERED: diphenhydrAMINE 50 MG CAP PO PRN (12:20)
[2018-02-25 12:24] VITALS: BP 142/94
[2018-02-25] MEDS ORDERED: AMIODARONE HCL 200 MG TAB PO SCH (12:30)
[2018-02-25] MEDS ORDERED: SCOPOLAMINE HYDROBROMIDE 1 MG/3 DAYS PATCH TD PRN (13:00)
--- NOTE | 2018-02-25 13:44 | PDHOMEO2F ---
Home Oxygen Face to Face Home Orders: I certify that a physician or a nurse practitioner or physician's data analysis assistant has had a jmmp-zj-[id number] encounter with this patient on the date of this order due to the diagnosis listed, which relates to the primary reason the patient requires home oxygen. Alternative treatments have been tried, or considered, and deemed ineffective. It is anticipated that supplemental oxygen will result in improvement with treatment. Home oxygen qualifying diagnosis: respiratory insufficiency Home oxygen secondary diagnosis: s/p cardiac surgery SpO2 on room air (%): 85 Frequency of home oxygen needed: continuous Home oxygen liters per minute: 2 Home oxygen delivery device: nasal cannula Concentrator: Yes E-tanks for mobility and back up: Yes If ordering portable O2, is the patient mobile in the home?: Yes I certify that, based on these findings, the home oxygen is medically necessary for this patient for the following length of time. Length of time home oxygen needed: 99 years
--- NOTE | 2018-02-25 13:45 | ASDISCHSUM ---
Discharge Information Plan Status:Home with No Needs Medically Cleared to Leave:02/25/2018 Discharge Date:02/25/2018 CM D/C Disposition:Home, Routine, Self-Care ADT D/C Disposition:Home, Routine, Self-Care Projected Discharge Date:02/25/2018 Transportation at D/C:Family Discharge Delay Reason: Follow-Up Date:02/25/2018 Discharge Slot: Final Diagnosis: Placement Information Patient Contact Information Contact Name:HUMPHREY Relationship: Address:[address] [place] [address] City:[place] Alternate Phone: [facility]/Zip Code:[place] [address] Email: Financial Information Financial Class:Medicare Primary Plan Desc:MEDICARE OUTPATIENT Primary Plan Number:[id number] Secondary Plan Desc:[facility] Secondary Plan Number:[id number] Assessment Information [facility] CM Progress Note CM Note CM Note Notes: Pt presented to the ED w/facial numbness after falling while walking up the stairs at home, pt was able to catch herself and she did not incur any injuries. Pt has a history of A-fib; pt's heart rate was 164 and EKG showed SVT. Pt admitted for cardiac monitoring, Dilt drip. Pt recently discharged home w/family from [facility] 02/19/18 after having aortic valve replacement w/bioprosthesis and mitral and tricuspid ring annuloplasty; pt was d/c'd to follow-up at outpatient cardiac rehab. Pt was d/c'd w/instuctions to hold her Digoxin and Coreg at that time. Pt lives with her , Kalia Granados (H:[phone]; C: [phone]). Pt also has 3 out of 4 of her children living in this area. Exact DC needs TBD but anticipate pt to stabilize and DC home w/family. CM to follow. Date Signed: 02/24/2018 10:37 AM Electronically Signed By:Misty Leo RN LACE LACE Length of stay for Answers: Less than 1 day current admission Acuity / Level of Answers: Yes Care: Did the patient have an inpatient admission? Comorbidities - select Answers: Cerebrovascular disease all that apply (CVA, TIA, aneurysms, vasc ular dementia) Congestive heart failure Coronary Artery Disease Diabetes (uncontrolled or controlled) History of falls Other Notes: A- fib, hypothyroidism, ob christina ty, GERD, anemia, carot id artery stenosis, sleep apnea, multilevel degenerative disc disea se # of Emergency department Answers: 1-2 visits in the last 6 months Score: 14 Date Signed: 02/25/2018 01:43 PM Electronically Signed By:Libby Heller RN Intervention Information
--- NOTE | 2018-02-25 13:48 | ASMTDCNOTE ---
Case Management Discharge Discharge Order Complete? Answers: Yes Patient to Obtain Answers: Independently Medications Transportation Arranged Answers: Family/Friends Family Notified Answers: Yes Discharge Comments Notes: 02/25/2018 Case Management Note Pt to discharge home with follow up as directed. No d/c needs from case management. Date Signed: 02/25/2018 01:48 PM Electronically Signed By:Libby Heller RN
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
[2018-02-26] MEDS ORDERED: ASPIRIN EC 81 MG TAB PO SCH (09:00)
== END 2018-02-25 15:04 | disposition home or self-care (01) | DRG 309 ==
LOC: F2W 22:11 → OBSVTOIN 02-24 15:47
PROVIDERS: ADMIT Thoracic Surgery (Cardiothoracic Vascular Surgery); ATTEND Thoracic Surgery (Cardiothoracic Vascular Surgery)
DX: I48.2 Chronic atrial fibrillation (principal); I11.0 Hypertensive heart disease with heart failure; I50.32 Chronic diastolic (congestive) heart failure; D62 Acute posthemorrhagic anemia; E11.9 Type 2 diabetes mellitus without complications; I42.9 Cardiomyopathy, unspecified; E03.9 Hypothyroidism, unspecified; Z95.3 Presence of xenogenic heart valve; Z79.01 Long term (current) use of anticoagulants; Z79.84 Long term (current) use of oral hypoglycemic drugs
CPT/HCPCS: 84484-PO; 96374; G0378; J0153; J0282

== ENCOUNTER 2018-02-27 14:13 | Day surgery (SDC) | payer OTHER ==
[2018-02-27] MEDS ORDERED: MIDAZOLAM 2 MG/2 ML VIAL IVP ONE (14:17)
[2018-02-27] MEDS ORDERED: fentaNYL 100 MCG/2 ML INJ IVP ONE (14:17)
[2018-02-27] MEDS ORDERED: NS 500 ML IV ONE (14:17)
[2018-02-27] MEDS ORDERED: ATROPINE SULFATE 1 MG/10 ML SYR IVP ONE (14:17)
[2018-02-27] MEDS ORDERED: BENZOCAINE UNIT DOSE SPRAY HURRICAINE MM ONE (14:17)
--- NOTE | 2018-02-27 14:59 | PDANEPAE ---
ANE History of Present Illness DIANE, CV ANE Past Medical History - Cardiovascular History Hx Hypertension: Yes Hx Arrhythmias: Yes Hx Chest Pain: No Hx Coronary Artery / Peripheral Vascular Disease: Yes Hx CHF / Valvular Disease: No Hx Palpitations: No Cardiovascular History Comment: AFIB. CAD WITH CARDIAC STENT PLACED 02/25/2008 - Pulmonary History Hx COPD: No Hx Asthma/Reactive Airway Disease: No Hx Recent Upper Respiratory Infection: No Hx Oxygen in Use at Home: Yes Hx Sleep Apnea: Yes Pulmonary History Comment: douglas positive- uses o2 - Neurologic History Hx Cerebrovascular Accident: Yes Hx Seizures: No Hx Dementia: No Neurologic History Comment: STROKE 04/17/14 ONLY RESIDUAL EFFECTS IS HANDWRITING IS POOR AT TIMES - Endocrine History Hx Diabetes: Yes Endocrine History Comment: ONLY USES METFORMIN - Renal History Hx Renal Disorders: Yes Renal History Comment: HX OF BLADDER LIFT. INCONTINENCE/ DRIBBLING - Liver History Hx Hepatic Disorders: No - Neurological & Psychiatric Hx Hx Neurological and Psychiatric Disorders: Yes Neurological / Psychiatric History Comment: SITUATIONAL DEPRESSION WITH CURRENT SITUATION. CLOSTRAPHOBIA - Cancer History Hx Cancer: No - Congenital Disorder History Hx Congenital Disorders: No Congenital History Comment: FAMILY HX WITH SISTERS - GI History Hx Gastrointestinal Disorders: Yes Gastrointestinal History Comment: REFLUX - Other Health History Other Health History: ARTHRITIS - Chronic Pain History Chronic Pain: No - Surgical History Prior Surgeries: TUBAL LIGATION. BLADDER LIFT. RIGHT KP. BREAST BIOPSY ON LEFT. CARDIAC STENT ANE Review of Systems Review of Systems: SOB with activity due to a fib - Exercise capacity Exercise capacity: <4 METS ANE Patient History - Allergies Allergies/Adverse Reactions: dextromethorphan Allergy (Verified 02/09/18 17:39) Makes pt hyperactive, tachycardic diazepam [From Valium] Allergy (Verified 02/09/18 17:39) Makes pt hyperactive Xdeljyd-Nql-Occ Reductase Inhibitor Allergy (Verified 02/09/18 17:39) Musche aches, but tolerates rosuvastatin - Home Medications Home medications: home medication list seen and reviewed Home Medications: Herbals/Supplements -Info Only 1 ea PO DAILY 04/17/14 [Last Taken 02/11/18] Lansoprazole 30 mg PO DAILY 04/17/14 [Last Taken 02/23/18] Levothyroxine [Synthroid 88 mcg (*)] 88 mcg PO DAILY@06 04/17/14 [Last Taken ] Warfarin Sodium [Coumadin 1MG (*)] 1 mg PO DAILY@16 04/17/14 [Last Taken ] metFORMIN HCL [Glucophage 500 mg (*)] 1,000 mg PO BIDMEAL 04/17/14 [Last Taken 02/23/18] Rosuvastatin Calcium 5 mg PO MO 02/09/18 [Last Taken 02/19/18] traZODone [traZODONE 50MG (*)] 50 mg PO HS PRN 02/09/18 [Last Taken 02/22/18] - NPO status NPO Status: no food or drink >8 hours - Anes Hx Anes Hx: no prior problems - Smoking Hx Smoking Status: Former smoker - Family Anes Hx Family Anes Hx: none Family Hx Anesthesia Complications: NONE ANE Labs/Vital Signs - Labs Result Diagrams: 02/27/18 14:50 - Vital Signs Vital Signs: reviewed preoperatively; see RN documention for details ANE Physical Exam - Airway Neck exam: FROM Mallampati Score: Class 2 Mouth exam: normal dental/mouth exam - Pulmonary Pulmonary: no respiratory distress - Cardiovascular Cardiovascular: regular rate and rhythym - ASA Status ASA Status: III ANE Anesthesia Plan Total IV Anesthesia: Yes
[2018-02-27] MEDS ORDERED: DEXAMETHASONE 4 MG/ML VIAL IVP PRN (15:10)
[2018-02-27] MEDS ORDERED: oxyCODONE IR 5 MG TAB PO PRN (15:10)
[2018-02-27] MEDS ORDERED: fentaNYL 100 MCG/2 ML INJ IVP PRN (15:10)
[2018-02-27] MEDS ORDERED: NALOXONE HCL 0.4 MG/ML INJ IVP PRN (15:10)
[2018-02-27] MEDS ORDERED: ONDANSETRON 4 MG/2 ML VIAL IVP PRN (15:10)
[2018-02-27] MEDS ORDERED: HYDROCODONE/APAP 5/325 TAB PO PRN (15:10)
[2018-02-27] MEDS ORDERED: ACETAMINOPHEN 500 MG TAB PO PRN (15:10)
--- NOTE | 2018-02-27 15:10 | POSTANESTH ---
Post Anesthetic Evaluation Cardiovascular Status: Similar to Pre-Op Cond Respiratory Status: Similar to Pre-op Cond. Level of Consciousness/Mental Status: Can Participate in Eval, Mildly Sleepy, Arousable Pain Control: Adequate, Prn Tx Ordered Nausea/Vomiting Control: Adequate, Prn Tx Ordered Complications Possibly Related to Anesthesia: None Noted
[2018-02-27] MEDS ORDERED: PROPOFOL 200 MG/20 ML VIAL ONE (15:18)
--- NOTE | 2018-02-27 15:19 | PDHPUP ---
History & Physical Update H&P update statement: This history and physical update is based on an assessment of the patient which was completed after admission or registration (within 24 hours), but prior to the surgery/procedure. H&P update: H&P reviewed & patient examined, no change in patient's condition since H&P completed H&P changes: Patient is currently in atrial fibrillation
[2018-02-27 15:24] LABS: INR 2.46 (0.83-1.16); PROTIME(PATIENT) 26.6 SEC (12.0-15.0)
[2018-02-27] MEDS ORDERED: AMIODARONE HCL 100 ML IV ONE ×2 (15:30→16:00)
--- NOTE | 2018-02-27 15:51 | PDTEE1 ---
DIANE Cardioversion Procedure Procedure: electrical cardioversion, transesophageal echo Indications: atrial fibrillation Consent: signed and in chart Anticoagulation: warfarin Procedural Details: After consent for sedation, DIANE, and possible cardioversion was signed and placed in chart, the patient was positioned in the left lateral position. Sedation was administered without incident, and the DIANE probe was placed without difficulty. Standard views were obtained Briefly Grossly normal LVEF Bioprosthetic mitral and aortic valves with grossly normal function Tricuspid ring with minimal regurgitation noted No left atrial appendage (oversewn) Scant "smoke" was noted to the left atrium with grossly normal dimensions noted No thrombus was noted in this study Atheroma was noted to the transverse and descending aorta DIANE probe was removed and the patient was positioned on her back A single, synchronized shock was performed with conversion from atrial fibrillation (rates to 140 bpm) to sinus rhythm at 68 bpm. ECG was performed I personally spoke with the family No complications with this procedure Synchronized cardioversion attempt #1: 200J Results: normal sinus rhythm Conclusions: successful DIANE cardioversion Patient Problems: Problems Problem Status Onset Acute blood loss anemia Acute Chronic anticoagulation Acute Moderate to severe mitral regurgitation Acute S/P Maze operation for atrial fibrillation Acute ~02/12/18 S/P aortic valve replacement with bioprosthetic valve Acute ~02/12/18 S/P tricuspid valve repair Acute ~02/12/18 Severe aortic valve stenosis Acute Severe tricuspid regurgitation Acute Status post mitral valve annuloplasty Acute ~02/12/18 Valvular cardiomyopathy Acute Afib Chronic CAD (coronary artery disease) Chronic Cervical stenosis of spinal canal Chronic DM2 (diabetes mellitus, type 2) Chronic HLD (hyperlipidemia) Chronic HTN (hypertension) Chronic Vertebral artery stenosis Chronic
== END 2018-02-27 17:45 | disposition home or self-care (01) ==
LOC: FCATH 14:13
PROVIDERS: ATTEND Internal Medicine Cardiovascular Disease
DX: I48.2 Chronic atrial fibrillation (principal); I10 Essential (primary) hypertension; E11.9 Type 2 diabetes mellitus without complications; I25.10 Atherosclerotic heart disease of native coronary artery without angina pectoris; E03.9 Hypothyroidism, unspecified; K21.9 Gastro-esophageal reflux disease without esophagitis
CPT/HCPCS: J0282; J0461; J2704

== ENCOUNTER 2018-03-03 08:13 | Emergency (ER) | payer OTHER ==
[2018-03-03 08:21] VITALS: BP 175/117
--- NOTE | 2018-03-03 08:53 | EDPHY ---
H & P Time Seen by Provider: 03/03/18 08:34 HPI/ROS: HPI Rectal pain, bloody stool. 72-year-old female by private vehicle with her . This patient reports that she had a hard, painful bowel movement yesterday with a small amount of blood mixed in with her stool. She is on Coumadin. She reports again this morning she had some constipation with hard stool, anal pain described as more posterior and a small amount of blood mixed in with her stool. No abdominal pain. She denies any other associated signs or symptoms. ROS: Constitutional: No fever, no chills. No weakness. Respiratory: No cough. No new shortness of breath. Cardiac: No chest pain, no palpitations. Gastrointestinal: No abdominal pain, no vomiting, no diarrhea. As above. Genitourinary: No hematuria. No dysuria or increased frequency with urination. Musculoskeletal: No back pain. Neurological: No headache. No focal weakness or altered sensation. Past medical history: CHF, diabetes, coronary artery disease with stents, atrial fibrillation on Coumadin, hyperlipidemia, bladder lift, CVA, right carotid endarterectomy, recent open heart surgery January of this year for aortic valve replacement. She is on nasal cannula oxygen at 2-3 L 24-7. Social history: Nonsmoker. Here with her . No alcohol. Physical Exam: General Appearance: Alert, no distress. This patient is responding to questions appropriately and in full sentences. This patient appears well- hydrated and well-nourished. Eyes: Pupils equal and round no pallor or injection. No lid edema, erythema or injection. Gastrointestinal: Abdomen is soft and nontender, no masses, bowel sounds normal. No focal tenderness at McBurney's point. No Ramos sign. Rectal exam: Significant for a posterior midline rectal fissure with associated mucosal abrasion. No active hemorrhage. No significant external hemorrhoids visualized. Neurological: Motor sensory function is grossly intact. Cranial nerves are normal. Gait is normal. Skin: Warm and dry, no rashes. Musculoskeletal: Neck is supple and nontender. Extremities are symmetrical. All joints range without pain or impingement. Psychiatric: No agitation. No depression. Database: EKG: Imaging: Procedures: Emergency department course: Vital signs reviewed. She is afebrile. She is hypertensive. Vital signs are otherwise normal. Patient's presentation/history and physical exam are consistent with a anal rectal fissure. Plan will be to treat this with stool softeners. I will prescribe her docusate sodium initially. I will also start her on psyllium husk laxatives. She is in agreement with this plan. She will follow up with her primary care physician on Monday or Monday of this week for re-evaluation. She feels comfortable going home with her . Return to emergency department precautions were thoroughly reviewed with her. All of her questions were answered. She was discharged from the emergency department in good condition with her . Differential Diagnosis: The differential diagnosis on this patient includes but is not limited to anal rectal fissure. Hemorrhoids, upper versus lower gastrointestinal hemorrhage, diverticulosis unlikely. This represents a partial list of diagnoses considered. These considerations are based on history, physical exam, past history, reassessment and diagnostic testing. Smoking Status: Former smoker Constitutional: Initial Vital Signs Temperature (C) 36.9 C 03/03/18 08:19 Heart Rate 81 03/03/18 08:19 Respiratory Rate 19 03/03/18 08:19 Blood Pressure 175/117 H 03/03/18 08:19 O2 Sat (%) 94 03/03/18 08:19 O2 Delivery Mode Nasal Cannula O2 (L/minute) 2 Allergies/Adverse Reactions: dextromethorphan Allergy (Verified 03/03/18 08:14) Makes pt hyperactive, tachycardic diazepam [From Valium] Allergy (Verified 03/03/18 08:14) Makes pt hyperactive Ysywolv-Vkd-Nco Reductase Inhibitor Allergy (Verified 03/03/18 08:14) Musche aches, but tolerates rosuvastatin Home Medications: Medication Instructions Recorded Herbals/Supplements -Info Only 1 ea PO DAILY 04/17/14 Lansoprazole 30 mg PO DAILY 04/17/14 Levothyroxine [Synthroid 88 mcg 88 mcg PO DAILY@06 04/17/14 (*)] Warfarin Sodium [Coumadin 1MG (*)] 1 mg PO DAILY@16 04/17/14 metFORMIN HCL [Glucophage 500 mg 1,000 mg PO BIDMEAL 04/17/14 (*)] Rosuvastatin Calcium 5 mg PO MO 02/09/18 traZODone [traZODONE 50MG (*)] 50 mg PO HS PRN 02/09/18 Acetaminophen [Tylenol ES 500 mg 500 mg PO Q6H PRN tab 02/19/18 (*)] Amiodarone HCl [Pacerone (*)] 200 mg PO BID #60 tab 02/25/18 Aspirin EC [Aspirin EC 81 mg (*)] 81 mg PO DAILY #0 tab 02/25/18 Furosemide [Lasix 40 MG (*)] 40 mg PO DAILY 1 Days #30 tab 02/25/18 Metoprolol Tartrate [Lopressor 50 50 mg PO BID #60 tab 02/25/18 mg (*)] Scopolamine Hydrobromide 1 patch TD Q72H PRN #1 box 02/25/18 [Scopolamine Patch] Warfarin Sodium [Warfarin Pharmacy 1 each MISC AD ea 02/25/18 To Dose] diphenhydrAMINE [Benadryl 50 MG 50 mg PO HS PRN cap 02/25/18 (*)] Docusate Sodium [Colace 100 MG (*)] 100 mg PO TID #10 cap 03/03/18 Departure - Departure Disposition: Home, Routine, Self-Care Clinical Impression: Acute anal fissure Condition: Good Instructions: Anal Fissure (ED) Additional Instructions: Read and follow provided instructions. Follow-up with your primary care physician on Monday or Monday of this week for re-evaluation. There are additional treatments for anal fissure which may be started by your primary care physician. Go to pharmacy and get psyllium husk fiber capsules or Metamucil capsules. Take 4-5 capsules in the morning with breakfast to treat constipation. Take docusate sodium stool softener for the next 2-3 days until psyllium husk fiber treatment for constipation has a chance to work. Return to the emergency department for worsening pain, rectal bleeding or other serious concerns. Referrals: Fariha Townsend MD [Primary Care Provider] - As per Instructions Prescriptions: Docusate Sodium [Colace 100 MG (*)] 100 mg PO TID #10 cap
== END 2018-03-03 09:03 | disposition home or self-care (01) ==
DX: K60.0 Acute anal fissure (principal); Z79.01 Long term (current) use of anticoagulants

== ENCOUNTER 2018-03-10 10:52 | Observation (INO) | payer OTHER ==
--- NOTE | 2018-03-10 10:58 | EDPHY ---
H & P Time Seen by Provider: 03/10/18 10:57 - Personal History Tetanus Vaccine Date: < 10 YEARS - Medical/Surgical History Hx Asthma: No Hx Chronic Respiratory Disease: No Hx Diabetes: Yes Hx Cardiac Disease: Yes Hx Renal Disease: No Hx Cirrhosis: No Hx Alcoholism: No Hx HIV/AIDS: No Hx Splenectomy or Spleen Trauma: No Other PMH: chf, DM, ME, Stent, CAD, HLD, Afib, bladder lift, Rt KP, CVA, right carotid endarterectomy. Openheart surgery January 2018 (t&mrepair with aortic replacement). choley - Social History Smoking Status: Former smoker Constitutional: Initial Vital Signs Temperature (C) 36.7 C 03/10/18 11:01 Heart Rate 60 03/10/18 11:01 Respiratory Rate 14 03/10/18 11:01 Blood Pressure 161/79 H 03/10/18 11:01 O2 Sat (%) 96 03/10/18 11:01 O2 Delivery Mode Nasal Cannula O2 (L/minute) 2 Allergies/Adverse Reactions: dextromethorphan Allergy (Verified 03/03/18 08:14) Makes pt hyperactive, tachycardic diazepam [From Valium] Allergy (Verified 03/03/18 08:14) Makes pt hyperactive Ncvobhy-Rsx-Cmt Reductase Inhibitor Allergy (Verified 03/03/18 08:14) Musche aches, but tolerates rosuvastatin Home Medications: Medication Instructions Recorded Herbals/Supplements -Info Only 1 ea PO DAILY 04/17/14 Lansoprazole 30 mg PO DAILY 04/17/14 Levothyroxine [Synthroid 88 mcg 88 mcg PO DAILY@06 04/17/14 (*)] Warfarin Sodium [Coumadin 1MG (*)] 1 mg PO DAILY@16 04/17/14 metFORMIN HCL [Glucophage 500 mg 1,000 mg PO BIDMEAL 04/17/14 (*)] Rosuvastatin Calcium 5 mg PO MO 02/09/18 traZODone [traZODONE 50MG (*)] 50 mg PO HS PRN 02/09/18 Acetaminophen [Tylenol ES 500 mg 500 mg PO Q6H PRN tab 02/19/18 (*)] Amiodarone HCl [Pacerone (*)] 200 mg PO BID #60 tab 02/25/18 Aspirin EC [Aspirin EC 81 mg (*)] 81 mg PO DAILY #0 tab 02/25/18 Furosemide [Lasix 40 MG (*)] 40 mg PO DAILY 1 Days #30 tab 02/25/18 Metoprolol Tartrate [Lopressor 50 50 mg PO BID #60 tab 02/25/18 mg (*)] diphenhydrAMINE [Benadryl 50 MG 50 mg PO HS PRN cap 02/25/18 (*)] Calcium Carbonate [Tums 500MG (*)] 500 mg PO DAILY PRN 03/10/18 Ciclopirox 1 silvio TP BID 03/10/18 Docusate Sodium [Colace 100 MG (*)] 100 mg PO DAILY 03/10/18 Nitroglycerin 0.2% Ointment 1 silvio TP BID 03/10/18 Ondansetron Odt [Zofran Odt 4 mg 4 mg PO DAILY PRN 03/10/18 (*)] Psyllium Husk (with Sugar) 1 each PO TID 03/10/18 [Metamucil Packet] Medical Decision Making - Diagnostics Imaging Results: Imaging Impressions Chest X-Ray 03/10/18 11:04 Impression: Postoperative features with improvement in the lung status, compared to 02/23/2018, with residual pleural/parenchymal changes at the lung bases, left greater than right. Imaging: I viewed and interpreted images myself ED Course/Re-evaluation: CHIEF COMPLAINT: Slow heart rate HISTORY OF PRESENT ILLNESS: The patient is an anticoagulated (Warfarin) 72 y/o female with an extensive history including open heart surgery for numerous valves (02/12/18), CAD, CHF, diabetes. On 02/12/18 she had her aortic, tricuspid, and mitral valve replaced with Dr. Hoffman, trailer rental clerk. She was discharged home without any complications. Yesterday she noticed that her heart rate started to drop between 43-45 bpm[address] She spoke with Dr. Hoffman's PA, who thought that these symptoms were most likely due to the patient taking Amiodarone. She did not take the amiodarone today, but continues to have a low heart rate. She was advised to present to the emergency department by Dr. Hoffman's PA. No heart ache , chest pain, shortness of breath, abdominal pain, urinary or bowel complaints, numbness, paresthesias, fevers. REVIEW OF SYSTEMS: A comprehensive 10 system review of systems is otherwise negative aside from elements mentioned in the history of present illness and medical decision making. PHYSICAL EXAM: HR, BP, O2 Sat, RR. Temp noted General Appearance: Alert, well hydrated, appropriate. Head: Atraumatic without scalp tenderness or obvious injury Eyes: Pupils equal, round, reactive to light and accommodation, EOMI, no trauma , no injection. Ears: Clear bilaterally, no perforation, normal landmarks Nose: Atraumatic, no rhinorrhea, clear. Throat: There is no erythema or exudates, no lesions, normal tonsils, mucus membranes moist. Neck: Supple, 2+ carotid upstroke, nontender, no lymphadenopathy. Respiratory: No retractions, no distress, no wheezes, and no accessory muscle use. Lungs are clear to auscultation bilaterally. Cardiovascular: Well-healed median sternotomy incision. Bradycardic heart rate, no murmurs, rubs, or gallops. Bilateral carotid, radial, dorsalis pedis, and posterior tibial pulses intact. Good capillary refill all extremities. Gastrointestinal: Abdomen is soft, nontender, non-distended, no masses, no rebound, no guarding, no peritoneal signs. Musculoskeletal: Normal active ROM of all extremities, atraumatic. Neurological: Alert, appropriate, and interactive. The patient has normal DTRs and non-focal cranial nerves, motor, sensory, and cerebellar exam. Skin: No rashes, good turgor, no nodules on palpation. 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 See hard copy and/or "tracemaster" electronic copy for interpretation. This EKG is similar to the patient's post-op EKG on 02/27/18. Chest x-ray: Postoperative features with improvement in the lung status, compared to 02/23/2018, with residual pleural/parenchymal changes at the lung bases, left greater than right. DIFFERENTIAL DIAGNOSIS: The differential diagnosis for the patient's slow heart rate included but was not limited to medications side-effect, myocardial ischemia, pulmonary embolus, chest wall pain, pleural inflammation, and pulmonary infectious causes. MEDICAL DECISION MAKING: The patient is an anticoagulated (Warfarin) 72 y/o female with an extensive history including open heart surgery for numerous valves (02/12/18), CAD, CHF, diabetes. On 02/12/18 she had her aortic, tricuspid, and mitral valve replaced with Dr. Hoffman, trailer rental clerk. On exam this patient has a well- healed median sternotomy incision; she is bradycardic as well. Labs, chest x-ray , and EKG ordered. 1101: I interpreted patient's EKG as sinus rhythm with a rate of 61. 1106: I consulted with the hospitalist service, Dr. Mcfadden accepts admission of this patient. This patient will be admitted for bradycardia which is most likely secondary to her medications. 1108: I consulted with Dr. Salter, dobby loom weaver, regarding this patient. He agrees to follow this patient during her admission. 1224: Patient's labs and chest x-ray reviewed. She is safe to be transferred to the floor. - Data Points Laboratory Results: Laboratory Results 03/10/18 11:05 03/10/18 11:05 03/10/18 03/10/18 03/10/18 11:10 11:05 11:05 WBC 9.49 10^3/uL 10^3/uL (3.80-9.50) RBC 3.82 10^6/uL L 10^6/uL (4.18-5.33) Hgb 11.4 g/dL L g/dL (12.6-16.3) Hct 35.0 % L % (38.0-47.0) MCV 91.6 fL fL (81.5-99.8) MCH 29.8 pg pg (27.9-34.1) MCHC 32.6 g/dL g/dL (32.4-36.7) RDW 19.0 % H % (11.5-15.2) Plt Count 401 10^3/uL H 10^3/uL (150-400) MPV 9.0 fL fL (8.7-11.7) Neut % (Auto) 70.9 % % (39.3-74.2) Lymph % (Auto) 10.2 % L % (15.0-45.0) [place] % (Auto) 13.1 % H % (4.5-13.0) Eos % (Auto) 5.1 % % (0.6-7.6) Baso % (Auto) 0.5 % % (0.3-1.7) Nucleat RBC Rel Count 0.0 % % (0.0-0.2) Absolute Neuts (auto) 6.73 10^3/uL H 10^3/uL (1.70-6.50) Absolute Lymphs (auto) 0.97 10^3/uL L 10^3/uL (1.00-3.00) Absolute Monos (auto) 1.24 10^3/uL H 10^3/uL (0.30-0.80) Absolute Eos (auto) 0.48 10^3/uL H 10^3/uL (0.03-0.40) Absolute Basos (auto) 0.05 10^3/uL 10^3/uL (0.02-0.10) Absolute Nucleated RBC 0.00 10^3/uL 10^3/uL (0-0.01) Immature Gran % 0.2 % % (0.0-1.1) Immature Gran # 0.02 10^3/uL 10^3/uL (0.00-0.10) Sodium 136 mEq/L mEq/L (135-145) Potassium 4.4 mEq/L mEq/L (3.3-5.0) Chloride 96 mEq/L L mEq/L (97-110) Carbon Dioxide 28 mEq/l mEq/l (22-31) Anion Gap 12 mEq/L mEq/L (6-14) BUN 13 mg/dL mg/dL (7-23) Creatinine 0.7 mg/dL mg/dL (0.6-1.0) Estimated GFR > 60 Glucose 157 mg/dL H mg/dL (70-100) Calcium 10.2 mg/dL mg/dL (8.5-10.4) Magnesium 2.1 mg/dL mg/dL (1.6-2.3) POC Troponin I 0.03 ng/mL ng/mL (0.00-0.08) NT-Pro-B Natriuret Pep 3840 pg/mL H pg/mL (0-125) Point of Care Test Results: Chemistry 03/10/18 11:10 POC Troponin I 0.03 ng/mL ng/mL (0.00-0.08) Departure - Departure Disposition: [facility] Inpatient Acute Clinical Impression: Bradycardia Condition: Fair Referrals: Fariha Townsend MD [Primary Care Provider] - As per Instructions Report Scribed for: Juan Porter Report Scribed by: Anabel Dior Date of Report: 03/10/18 Time of Report: 10:59
[2018-03-10 11:21] LABS: PLATELET COUNT 401 10^3/uL (150-400)
[2018-03-10] MEDS ORDERED: traZODone 50 MG TAB PO PRN (12:44)
--- NOTE | 2018-03-10 13:59 | CPEKG ---
Test Reason : OPEN Blood Pressure : / mmHG Vent. Rate : 061 BPM Atrial Rate : 060 BPM P-R Int : 164 ms QRS Dur : 099 ms QT Int : 528 ms P-R-T Axes : 091 092 -71 degrees QTc Int : 532 ms Sinus rhythm Right axis deviation Consider left ventricular hypertrophy Repol abnrm suggests ischemia, diffuse leads Prolonged QT interval Confirmed by Juan Porter ([id number]) on 03/10/2018 1:59:00 PM Referred By: Confirmed By:Juan Porter
[2018-03-10] MEDS ORDERED: WARFARIN SODIUM 1 MG TAB PO SCH (16:00)
--- NOTE | 2018-03-10 16:41 | GHP ---
DATE OF ADMISSION: 03/10/2018 CHIEF COMPLAINT: Bradycardia. HISTORY: The patient is a 72-year-old female who recently underwent a bioprosthetic aortic valve rep lacement with mitral and tricuspid valve repairs, a maze procedure, and a clip of the left atrial silvio endage on February 12, with Dr. Hoffman. Surgery was complicated by postoperative cardiac tamponade, requiring her to go back to the OR for oversewing of the SVC cannulation site. Post surgery, she did have a prolonged junctional rhythm and there was consideration of a pacemaker, but this subsequently resolved. She is now re-presenting to the hospital due to low heart rate. She has a pulse oximeter at home, an d she watches her oxygen and pulse levels very closely. She has noted for the last 24 hours that her heart rate is frequently dipping down to the low 40s on her pulse oximeter. She called the CT surge ry service, they told her to hold her amiodarone. Pulse came back up yesterday, but then this mornin g after her morning medications again dropped down into the low 40s, so she presented to the emergenc y room. She denies any dizziness, lightheadedness, shortness of breath, or chest pain. PAST MEDICAL HISTORY: 1. Aortic valve replacement and mitral and tricuspid valve repair as above. 2. Atrial fibrillation. 3. Diabetes type 2. Well controlled. Last hemoglobin A1c 5.3. 4. Coronary artery disease, status post stent to the LAD. 5. Peripheral vascular disease, status post stent to the carotid artery. 6. Obesity. BMI 33, with obstructive sleep apnea. 7. Diastolic congestive heart failure. PAST SURGICAL HISTORY: Cholecystectomy, right total hip arthroplasty. MEDICATIONS: Please see computerized record for full detailed list. ALLERGIES: Statin and diazepam. SOCIAL HISTORY: Quit smoking 2000. One alcoholic beverage per day. REVIEW OF SYSTEMS: Complete review of systems obtained. Review of systems negative regarding consti tutional, HEENT, GI, pulmonary, cardiovascular, , hematology, skin, endocrine, psych except for pos itives and negatives as noted in HPI. FAMILY HISTORY: Reviewed and noncontributory to presenting complaint. PHYSICAL EXAMINATION: GENERAL: Well-developed, well-nourished female, no distress. VITAL SIGNS: T emperature is 36.3, pulse 48, blood pressure 139/66, satting 97% on 2 L. EYES: Normal conjunctivae. Pupils equal, round, reactive to light. ENT: Normal ears and nose. Hearing intact. Normal teeth . Oropharynx moist. NECK: Trachea midline. No thyromegaly. CHEST: Normal respiratory effort. L ungs clear to auscultation bilaterally. CARDIOVASCULAR: Regular rhythm. No murmur. No extremity e ellie. ABDOMEN: Soft, nontender. No hepatosplenomegaly. SKIN: Warm, dry, intact without rash. MU SCULOSKELETAL: No cyanosis or clubbing. Strength 5/5, upper and lower extremities. NEURO: Cranial nerves intact. Normal sensation to light touch. PSYCH: Alert and oriented x3. Normal mood and af fect. Normal judgment and insight. Normal memory. LABORATORY DATA: White count 9.49, hematocrit 35.0, platelets 401. Sodium 136, potassium 4.4, chlor vazquez 96, bicarb 28, BUN 13, creatinine 0.7, glucose 157. Troponins negative. BNP is 3840. Chest x-ray is negative. EKG viewed by me. My personal interpretation is normal sinus rhythm, inferior T-wave inversions. This case was personally discussed with Dr. Salter. He feels her bradycardia is symptomatic and we do not need to make too dramatic med changes at this time. ASSESSMENT AND PLAN: 1. Bradycardia. This is asymptomatic. We can try her at metoprolol 25 mg p.o. b.i.d. as well as de creasing her amiodarone to 200 mg p.o. daily. Will monitor overnight and reassess tomorrow. 2. Recent aortic valve replacement with mitral valve and tricuspid valve repair. This appears stabl e. 3. Atrial fibrillation. She is on chronic warfarin. Will check an INR in the morning. Amiodarone and metoprolol for rate and rhythm control. 4. Coronary artery disease, status post stent to the left anterior descending. Continue aspirin and Crestor. 5. Peripheral vascular disease, status post stent to the carotid artery. This is stable. 6. Hypoxemia persisting since surgery. She is still wearing 2 L of oxygen at home. She has been do ing her incentive spirometer at home. Will check a room air saturation with attempts to wean off oxy gen. Her baseline is 2 L only at night for her obstructive sleep apnea. CODE STATUS: Full. ADMISSION STATUS: 1. Will admit to observation. Reevaluate tomorrow regarding the ongoing need for hospitalization. 2. DVT prophylaxis. She is low risk given her chronic anticoagulation. /[id number]/MODL
[2018-03-10] MEDS: metFORMIN HCL 500 MG TAB PO SCH (17:48)
[2018-03-10] MEDS: PSYLLIUM METAMUCIL 1 PKT PO SCH ×2 (17:48→20:17)
[2018-03-10] MEDS ORDERED: ACETAMINOPHEN 325 MG TAB PO PRN (18:57)
[2018-03-10] MEDS: NITROGLYCERIN 0.2% TP SCH (20:06)
[2018-03-10] MEDS: CICLOPIROX TP SCH (20:06)
[2018-03-10] MEDS: METOPROLOL TARTRATE 50 MG TAB PO SCH (20:53)
[2018-03-10] MEDS: AMIODARONE HCL 200 MG TAB PO SCH (20:58)
[2018-03-10] MEDS ORDERED: METOPROLOL TARTRATE 50 MG TAB PO SCH ×2 (21:00)
[2018-03-10] MEDS ORDERED: diphenhydrAMINE 25 MG CAP PO PRN (21:07)
[2018-03-11] MEDS ORDERED: LEVOTHYROXINE 88 MCG TAB ONE (03:57)
[2018-03-11 05:26] LABS: INR 3.01 (0.83-1.16); PROTIME(PATIENT) 31.1 SEC (12.0-15.0)
[2018-03-11] MEDS ORDERED: LEVOTHYROXINE 88 MCG TAB PO SCH (06:00)
[2018-03-11] MEDS: NITROGLYCERIN 0.2% TP SCH (07:49)
[2018-03-11] MEDS: CICLOPIROX TP SCH (07:49)
[2018-03-11] MEDS: metFORMIN HCL 500 MG TAB PO SCH (08:30)
[2018-03-11] MEDS: AMIODARONE HCL 200 MG TAB PO SCH (08:30)
[2018-03-11] MEDS: METOPROLOL TARTRATE 50 MG TAB PO SCH (08:31)
[2018-03-11] MEDS: PSYLLIUM METAMUCIL 1 PKT PO SCH (08:31)
[2018-03-11] MEDS ORDERED: FUROSEMIDE 40 MG TAB PO SCH (09:00)
[2018-03-11] MEDS ORDERED: PANTOPRAZOLE SODIUM 40 MG TAB PO SCH (09:00)
[2018-03-11] MEDS ORDERED: ASPIRIN EC 81 MG TAB PO SCH (09:00)
[2018-03-11] MEDS ORDERED: DOCUSATE SODIUM 100 MG CAP PO SCH (09:00)
[2018-03-11 11:41] VITALS: BP 120/50
--- NOTE | 2018-03-11 12:28 | ASMTCMCOM ---
CM Note CM Note Notes: Case Management Chart Review for Discharge Support: Patient is a 72 y/o female presented to [facility] ED for bradycardia, heart rate in the low 40's at home. Patient was seen at [facility] last January for open heart surgery with Dr. Hoffman. Patient discussed during rounds. Admitted for observation, will be discharged home independently today with support from her . Patient is connected to and scheduled for Cardiac Rehab visit tomorrow. CM met with patient prior to discharge, Cece and MEHNAZ delivered and signed for receipt, patient to follow up as recommended. CM available to support if any further needs arise. Date Signed: 03/11/2018 12:28 PM Electronically Signed By:Yolanda Frey
--- NOTE | 2018-03-11 12:33 | PDCARPN ---
Cardiology Progress Note Assessment/Plan: Assessment: Plan: Subjective: No complaints. Reviewed/Discussed With: family, hospitalist Objective: Vital Signs (8 Hrs) Temp Pulse Resp BP Pulse Ox 03/11/18 11:41 36.9 C 49 L 91 H 120/50 L 03/11/18 08:23 36.4 C 72 18 126/72 H 92 Intake/Output (24 Hrs) 03/10/18 03/11/18 03/12/18 05:59 05:59 05:59 Intake Total 800 Output Total 1700 Balance -900 Intake: Oral (ml) 800 Output: Urine (ml) 1700 Toilet 1700 Other: Weight 76.7 kg Number of Voids Toilet 2 Result Diagrams: 03/10/18 11:05 03/10/18 11:05 - Physical Exam Constitutional: WDWN, healthy appearing, no apparent distress Eyes: anicteric sclera Ears, Nose, Mouth, Throat: moist mucous membranes Cardiovascular: regular rate and rhythm, no murmurs, no rubs Respiratory: clear to auscultate bilat Gastrointestinal: normoactive bowel sounds, no tenderness, no masses Skin: no edema Neurologic: AAOx3 Psychiatric: not anxious ICD10 Worksheet Patient Problems: Problems Problem Status Onset Bradycardia Acute Acute blood loss anemia Acute Chronic anticoagulation Acute Moderate to severe mitral regurgitation Acute S/P Maze operation for atrial fibrillation Acute ~02/12/18 S/P aortic valve replacement with bioprosthetic valve Acute ~02/12/18 S/P tricuspid valve repair Acute ~02/12/18 Severe aortic valve stenosis Acute Severe tricuspid regurgitation Acute Status post mitral valve annuloplasty Acute ~02/12/18 Valvular cardiomyopathy Acute Afib Chronic CAD (coronary artery disease) Chronic Cervical stenosis of spinal canal Chronic DM2 (diabetes mellitus, type 2) Chronic HLD (hyperlipidemia) Chronic HTN (hypertension) Chronic Vertebral artery stenosis Chronic
--- NOTE | 2018-03-11 13:01 | GCON ---
CARDIOLOGY CONSULTATION DATE OF CONSULTATION: 03/10/2018 REFERRING PHYSICIAN: Juan Porter MD INDICATION FOR CONSULTATION: Bradycardia. HISTORY OF PRESENT ILLNESS: The patient is a pleasant 72-year-old female with a recent history of ca rdiothoracic surgery status post 23 mm Magna bioprosthetic aortic valve replacement, #32 Physio hua l valve ring and #32 tricuspid valve ring as well as a Collins IV maze procedure in mid January [address] Hoffman. She had been admitted in late January with new onset of atrial fibrillation with rapid ventricular re sponse. She underwent DIANE-guided cardioversion with my partner, Dr. Jack Luna on February 27, 2018, with advent of sinus rhythm. She was started on amiodarone 200 mg p.o. b.i.d. She has remaine d on amiodarone 200 mg p.o. b.i.d. She is also on metoprolol tartrate 50 mg p.o. b.i.d. The patient states she has been in her usual state of health. She notes that her heart rate has been consistent with rates between 65 and 70 beats per minute over the last weeks since her cardioversion . However, she did note around noon yesterday that while checking her blood pressure, she noticed a heart rate of 45 beats per minute. She states that later in the afternoon it had normalized to 65 be ats per minute. She also noted last evening again heart rates in the mid 40s. She denies any associ ated symptoms. She denies dizziness, lightheadedness, near syncope or syncope. No complaints of exe rtional intolerance or fatigue. No complaints of PND, orthopnea, or lower extremity edema. She stat es that if she did not see her heart rate on the blood pressure monitor, she would have had no indica tion that her heart rate was low. She has completed 2 weeks of amiodarone at 200 mg p.o. b.i.d. and was instructed to decrease to 200 mg daily today. She did not take her amiodarone dose this morning. She presented today because of concerns regarding the documented low heart rate yesterday. Currently at the time of my exam, she is resting comfortably without complaint. REVIEW OF SYSTEMS: Remainder of a 10-point review of systems is negative. PAST MEDICAL HISTORY: Recent surgery with aortic valve replacement, mitral and tricuspid valve ring and Collins IV maze procedure February 12, 2018. History of coronary artery disease, diabetes, paroxysmal atrial fibrillation, hyperlipidemia, cervical stenosis, hypertension and vertebral artery stenosis. MEDICATIONS ON ADMISSION: Include Coumadin, metformin 1000 mg p.o. b.i.d., Lasix 40 mg daily, metopr olol tartrate 50 mg p.o. b.i.d., rosuvastatin 5 mg q. once a week, amiodarone 200 mg p.o. b.i.d., Col mitzi 100 mg daily, Metamucil t.i.d., 30 mg daily, Synthroid 88 mcg daily, calcium carbonate 500 mg daily as needed, Tylenol as needed, aspirin 81 mg daily. ALLERGIES: Allergies to medication include dextromethorphan, diazepam, and statins, although she is able to tolerate 5 mg of Coumadin q. once a week. SOCIAL HISTORY: She lives at home. She is a nonsmoker. PHYSICAL EXAMINATION: VITAL SIGNS: Blood pressure 139/66, heart rate of 53 in sinus rhythm, respira tory rate of 20, oxygen saturation 97% on 2 L nasal cannula, temperature 36.3. GENERAL APPEARANCE: S he is awake, alert, oriented, appropriate. No apparent distress. NECK: There is no evidence of JVP or carotid bruits. CARDIAC: Regular rhythm. No murmurs, rubs, or gallops. PMI is not displaced. ABDOMEN: Soft, nontender, nondistended. EXTREMITIES: There is no evidence of cyanosis, clubbing o r edema. DATA: White blood cell count 9.49, hemoglobin 11.4, hematocrit 35, platelet count of 401. Sodium 13 6, potassium 4.4, chloride 96, bicarb 28, BUN 13, creatinine 0.7, calcium 10.2, magnesium 2.1. N-ter monalisa proBNP 3840. Previous N-terminal proBNP was prior to surgery at 1620. Point of care troponin 0.03. IMPRESSION: 1. Sinus bradycardia detected on pulse oximeter and blood pressure cuff at home in the absence of sy mptoms with rates in the upper 40s. 2. Status post recent valvular surgery as outlined above. 3. History of paroxysmal atrial fibrillation, status post Collins IV maze procedure, coupled with transe sophageal echocardiogram guided cardioversion February 27, 2018, with amiodarone loading over the last 2 weeks. 4. Coronary artery disease. 5. Hypertension. 6. Hyperlipidemia with intolerance to statins greater than Crestor 5 mg q. once a week. SUMMARY: The patient has had an episode of atrial fibrillation postoperatively requiring cardioversi on. She has done remarkably well since cardioversion on February 27, with documented rates consisten tly in the mid 60s to 70s. These episodes yesterday of bradycardia were not associated with symptoms . Would recommend that she continue amiodarone at 200 mg once daily. I think that maintaining sinus rhythm at this point in her postoperative care is essential. Would recommend that she also remain o n her current dose of metoprolol. Would recommend she remain on telemetry overnight. If she does de monstrate marked sinus bradycardia or demonstrate conduction system disease or pauses, would consider decreasing metoprolol. PLAN: 1. Continue metoprolol at 200 mg p.o. q.h.s. 2. Continue metoprolol tartrate 50 mg p.o. b.i.d. 3. Continue current outpatient medications. 4. Continue telemetry monitoring. If the patient remains asymptomatic in sinus rhythm, would recommend she be discharged home tomorrow morning. /[id number]/MODL
--- NOTE | 2018-03-11 19:54 | GDS ---
DISCHARGE DIAGNOSES: 1. Bradycardia with 2.5 second pause. 2. Recent bioprosthetic aortic valve replacement with mitral and tricuspid valve repairs, maze proce dure, and clip of the left atrial appendage. 3. Atrial fibrillation status post recent cardioversion. 4. Coronary artery disease, status post previous stent to the left anterior descending. 5. Peripheral vascular disease status post previous stent to the carotid artery. HISTORY: The patient is a 72-year-old female who recently underwent CT surgery as above on January [address] Hoffman. She had a complicated postoperative course including cardiac tamponade requiring her to go back to the OR for over-sewing of the SVC cannulation site. Post surgery she had a prolonge d junctional rhythm, and there was consideration for a pacemaker, but this subsequently resolved. She has also been readmitted for rapid AFib and underwent cardioversion. She is now re-presenting to the hospital due to low heart rate. This is asymptomatic, but she has a p ulse oximeter at home, and she notices very low heart rates on the monitor. They would go down into t he low 40s. She was admitted to the hospital under observation. Her metoprolol was reduced. Her telem etry showed up to 2.5 cm pause. Her metoprolol is now being discontinued. Her amiodarone is decreased from b.i.d. to 200 mg . Cardiology would like the metoprolol to flush out of her system. She has extensive postoperative monitoring already scheduled, and if she continues to hav e pauses especially if they become symptomatic, pacemaker may be indicated. DISCHARGE MEDICATIONS: Please see computerized record for full detailed list. There were no new medi cations given at time of hospital discharge. Medication changes included: 1. Reducing amiodarone from 200 mg p.o. b.i.d. to 200 mg p.o. once a day. 2. Metoprolol discontinued. ADDITIONAL DISCHARGE INSTRUCTIONS: Follow up with CT surgery as scheduled. Patient was seen and examined by me on the day of discharge. /[id number]/MODL
[2018-03-12] MEDS ORDERED: ROSUVASTATIN CALCIUM 10 MG TAB PO SCH (12:44)
== END 2018-03-11 12:58 | disposition home or self-care (01) ==
LOC: F2W 12:30
PROVIDERS: ADMIT Internal Medicine; ATTEND Internal Medicine
DX: R00.1 Bradycardia, unspecified (principal); I48.91 Unspecified atrial fibrillation; R09.02 Hypoxemia; I25.10 Atherosclerotic heart disease of native coronary artery without angina pectoris; I73.9 Peripheral vascular disease, unspecified; I25.2 Old myocardial infarction; I50.30 Unspecified diastolic (congestive) heart failure; I11.0 Hypertensive heart disease with heart failure; E11.51 Type 2 diabetes mellitus with diabetic peripheral angiopathy without gangrene; E78.5 Hyperlipidemia, unspecified; E66.9 Obesity, unspecified; Z68.33 Body mass index [BMI] 33.0-33.9, adult; G47.33 Obstructive sleep apnea (adult) (pediatric); M48.02 Spinal stenosis, cervical region; Z79.01 Long term (current) use of anticoagulants; Z79.82 Long term (current) use of aspirin; Z79.84 Long term (current) use of oral hypoglycemic drugs; Z79.899 Other long term (current) drug therapy; Z86.73 Personal history of transient ischemic attack (TIA), and cerebral infarction without residual deficits; Z87.891 Personal history of nicotine dependence; Z95.5 Presence of coronary angioplasty implant and graft; Z95.828 Presence of other vascular implants and grafts; Z95.3 Presence of xenogenic heart valve; Z96.641 Presence of right artificial hip joint; Z98.890 Other specified postprocedural states; E03.9 Hypothyroidism, unspecified
CPT/HCPCS: 71046; 93005; 99285; G0378; 84484-PO

== ENCOUNTER → 2018-03-13 | Outpatient (CLI) | payer OTHER | LOC: FIMAGING 09:28 | PROVIDERS: ATTEND Thoracic Surgery (Cardiothoracic Vascular Surgery) | DX: J90 Pleural effusion, not elsewhere classified (principal); Z95.2 Presence of prosthetic heart valve; Z98.890 Other specified postprocedural states ==

== ENCOUNTER 2018-03-14 09:48 | Emergency (ER) | payer OTHER ==
--- NOTE | 2018-03-14 09:54 | EDPHY ---
H & P Time Seen by Provider: 03/14/18 09:53 HPI/ROS: CHIEF COMPLAINT: Palpitations HISTORY OF PRESENT ILLNESS: The patient presents to the ED with complaints of tachycardia that began earlier this morning while putting on makeup. The patient does report some mild breathlessness. She denies additional acute complaints. The patient does have a history of an aortic valve replacement, mitral valve replacement and tricuspid valve replacement performed in January with Dr. Jan martinez. She underwent a Maze procedure at that point time. The patient did have an episode of atrial fibrillation at the end of January which required cardioversion. At that point time she was started on amiodarone and 50 mg of metoprolol twice daily. Patient subsequently return to the emergency department several days ago with bradycardia. At that point time she tells me she was advised to stop taking her metoprolol but continues to be on amiodarone. Patient is currently anticoagulated. REVIEW OF SYSTEMS: A comprehensive 10 point review of systems is otherwise negative aside from elements mentioned in the history of present illness. Source: Patient Exam Limitations: No limitations - Personal History Tetanus Vaccine Date: < 10 YEARS - Medical/Surgical History Hx Asthma: No Hx Chronic Respiratory Disease: No Hx Diabetes: Yes Hx Cardiac Disease: Yes Hx Renal Disease: No Hx Cirrhosis: No Hx Alcoholism: No Hx HIV/AIDS: No Hx Splenectomy or Spleen Trauma: No Other PMH: chf, DM, NM, Stent, CAD, HLD, Afib, bladder lift, Rt KP, CVA, right carotid endarterectomy. Openheart surgery January 2018 (t&mrepair with aortic replacement), cardiomyopathy, maze,. choley - Social History Smoking Status: Former smoker - Physical Exam Exam: General Appearance: Alert, no distress Eyes: Pupils equal and round no pallor or injection ENT, Mouth: Mucous membranes moist Respiratory: There are no retractions, lungs are clear to auscultation Cardiovascular: Tachycardic, regular Gastrointestinal: Abdomen is soft and nontender, no masses, bowel sounds normal Neurological: A&O, normal motor function, normal sensory exam, normal cranial nerves Skin: Warm and dry, no rashes Musculoskeletal: Neck is supple nontender Extremities: symmetrical, full range of motion Constitutional: Initial Vital Signs Temperature (C) 36.7 C 03/14/18 10:02 Heart Rate 177 H 03/14/18 10:02 Respiratory Rate 18 03/14/18 10:02 Blood Pressure 158/111 H 03/14/18 10:02 O2 Sat (%) 93 03/14/18 10:02 O2 Delivery Mode Nasal Cannula O2 (L/minute) 3 Allergies/Adverse Reactions: dextromethorphan Allergy (Verified 03/03/18 08:14) Makes pt hyperactive, tachycardic diazepam [From Valium] Allergy (Verified 03/03/18 08:14) Makes pt hyperactive Dxylvtu-Vju-Yuf Reductase Inhibitor Allergy (Verified 03/03/18 08:14) Musche aches, but tolerates rosuvastatin Home Medications: Medication Instructions Recorded Herbals/Supplements -Info Only 1 ea PO DAILY 04/17/14 Lansoprazole 30 mg PO DAILY 04/17/14 Levothyroxine [Synthroid 88 mcg 88 mcg PO DAILY@06 04/17/14 (*)] Warfarin Sodium [Coumadin 1MG (*)] 1 mg PO DAILY@16 04/17/14 metFORMIN HCL [Glucophage 500 mg 1,000 mg PO BIDMEAL 04/17/14 (*)] Rosuvastatin Calcium 5 mg PO MO 02/09/18 traZODone [traZODONE 50MG (*)] 50 mg PO HS PRN 02/09/18 Acetaminophen [Tylenol ES 500 mg 500 mg PO Q6H PRN tab 02/19/18 (*)] Aspirin EC [Aspirin EC 81 mg (*)] 81 mg PO DAILY #0 tab 02/25/18 Furosemide [Lasix 40 MG (*)] 40 mg PO DAILY 1 Days #30 tab 02/25/18 diphenhydrAMINE [Benadryl 50 MG 50 mg PO HS PRN cap 02/25/18 (*)] Calcium Carbonate [Tums 500MG (*)] 500 mg PO DAILY PRN 03/10/18 Ciclopirox 1 silvio TP BID 03/10/18 Docusate Sodium [Colace 100 MG (*)] 100 mg PO DAILY 03/10/18 Nitroglycerin 0.2% Ointment 1 silvio TP BID 03/10/18 Ondansetron Odt [Zofran Odt 4 mg 4 mg PO DAILY PRN 03/10/18 (*)] Psyllium Husk (with Sugar) 1 each PO TID 03/10/18 [Metamucil Packet] Amiodarone HCl [Pacerone (*)] 200 mg PO DAILY #30 tab 03/11/18 Metoprolol Tartrate [Lopressor 25 12.5 mg PO BID #30 tab 03/14/18 mg (*)] Medical Decision Making - Diagnostics EKG Interpretation: EKG: Complete interpretation has been separately recorded in the [facility] archive. Summary impression: SVT, rate 177 ED Course/Re-evaluation: ED course: The patient presents the emergency department with an SVT that began earlier today. She came in with a heart rate of 177. The patient was placed on a potline monitor. She received 6 mg of adenosine for a chemical cardioversion this converted her back to a sinus rhythm with a rate of 96. Consultation was made with Cardiology. I did review her case with Dr. Nitin Hansen in the emergency department. He recommends resuming metoprolol at a very small dose such as 12.5 mg twice daily. He did review her records and was aware of the fact that she recently had her metoprolol discontinued for bradycardia. He recommends close follow-up with Cardiology Clinic. The patient is scheduled to see Dr. Hemant Muñoz on Monday. The patient was monitored in the emergency department without evidence of a recurrent tachyarrhythmia. I discussed the case with Dr. Cai who also agrees with 12.5 mg of metoprolol twice daily. The patient will be discharged with customary aftercare instructions and return precautions. Differential Diagnosis: Differential diagnosis considered includes SVT, atrial fibrillation, atrial flutter, dehydration, metabolic derangement Critical Care Time: Critical care time exclusive of procedures and exclusive of the PA's time was 35 minutes, performed by myself, Collin Ferrara MD. The patient presented to the ED with a SVT in the setting of recent complicated cardiac surgery and symptomatic bradycardia. The patient required chemical cardioversion in the emergency department. Consultation was made with several emergency medical technician basic regarding her rate control. - Data Points Laboratory Results: Laboratory Results 03/14/18 10:00 03/14/18 10:00 03/14/18 03/14/18 03/14/18 10:56 10:00 10:00 WBC 7.81 10^3/uL 10^3/uL (3.80-9.50) RBC 4.17 10^6/uL L 10^6/uL (4.18-5.33) Hgb 12.4 g/dL L g/dL (12.6-16.3) Hct 37.7 % L % (38.0-47.0) MCV 90.4 fL fL (81.5-99.8) MCH 29.7 pg pg (27.9-34.1) MCHC 32.9 g/dL g/dL (32.4-36.7) RDW 18.7 % H % (11.5-15.2) Plt Count 387 10^3/uL 10^3/uL (150-400) MPV 9.5 fL fL (8.7-11.7) Neut % (Auto) 68.2 % % (39.3-74.2) Lymph % (Auto) 14.0 % L % (15.0-45.0) [place] % (Auto) 12.4 % % (4.5-13.0) Eos % (Auto) 4.5 % % (0.6-7.6) Baso % (Auto) 0.5 % % (0.3-1.7) Nucleat RBC Rel Count 0.0 % % (0.0-0.2) Absolute Neuts (auto) 5.33 10^3/uL 10^3/uL (1.70-6.50) Absolute Lymphs (auto) 1.09 10^3/uL 10^3/uL (1.00-3.00) Absolute Monos (auto) 0.97 10^3/uL H 10^3/uL (0.30-0.80) Absolute Eos (auto) 0.35 10^3/uL 10^3/uL (0.03-0.40) Absolute Basos (auto) 0.04 10^3/uL 10^3/uL (0.02-0.10) Absolute Nucleated RBC 0.00 10^3/uL 10^3/uL (0-0.01) Immature Gran % 0.4 % % (0.0-1.1) Immature Gran # 0.03 10^3/uL 10^3/uL (0.00-0.10) Sodium 136 mEq/L mEq/L (135-145) Potassium 3.8 mEq/L mEq/L (3.3-5.0) Chloride 92 mEq/L L mEq/L (97-110) Carbon Dioxide 28 mEq/l mEq/l (22-31) Anion Gap 16 mEq/L H mEq/L (6-14) BUN 12 mg/dL mg/dL (7-23) Creatinine 0.6 mg/dL mg/dL (0.6-1.0) Estimated GFR > 60 Glucose 155 mg/dL H mg/dL (70-100) Calcium 10.4 mg/dL mg/dL (8.5-10.4) Total Bilirubin 0.8 mg/dL mg/dL (0.1-1.4) AST 37 IU/L IU/L (14-46) ALT 28 IU/L IU/L (9-52) Alkaline Phosphatase 112 IU/L IU/L (38-126) POC Troponin I 0.00 ng/mL ng/mL (0.00-0.08) Total Protein 8.8 g/dL H g/dL (6.3-8.2) Albumin 4.7 g/dL g/dL (3.5-5.0) Medications Given: Discontinued Medications Adenosine (Adenosine) 6 mg IVP EDNOW ONE Stop: 03/14/18 10:18 Last Admin: 03/14/18 10:30 Dose: 6 mg Point of Care Test Results: Chemistry 03/14/18 10:56 POC Troponin I 0.00 ng/mL ng/mL (0.00-0.08) Departure - Departure Disposition: Home, Routine, Self-Care Clinical Impression: Supraventricular tachycardia Condition: Good Instructions: Supraventricular Tachycardia (ED) Additional Instructions: 1. At the recommendation of the cardiology service please start taking metoprolol 12.5 mg twice daily. 2. Return to the ED for any lightheadedness, chest pain, elevated heart rate or other concerns. 3. Follow up as scheduled with your emergency medical technician basic on Monday. Referrals: Hemant Muñoz MD [Medical Doctor] - As per Instructions
--- NOTE | 2018-03-14 10:14 | CPEKG ---
Test Reason : OPEN Blood Pressure : / mmHG Vent. Rate : 177 BPM Atrial Rate : 181 BPM P-R Int : 000 ms QRS Dur : 094 ms QT Int : 265 ms P-R-T Axes : 000 029 248 degrees QTc Int : 455 ms Supraventricular tachycardia Repolarization abnormality, prob rate related Confirmed by Collin Ferrara ([id number]) on 03/14/2018 10:14:19 AM Referred By: Confirmed By:Collin Ferrara
[2018-03-14] MEDS ORDERED: ADENOSINE 6 MG/2 ML VIAL IVP ONE (10:17)
--- NOTE | 2018-03-14 10:35 | CPEKG ---
Test Reason : OPEN Blood Pressure : / mmHG Vent. Rate : 096 BPM Atrial Rate : 097 BPM P-R Int : 146 ms QRS Dur : 101 ms QT Int : 380 ms P-R-T Axes : 100 020 -61 degrees QTc Int : 481 ms Sinus rhythm Confirmed by Collin Ferrara ([id number]) on 03/14/2018 10:34:46 AM Referred By: Confirmed By:Collin Ferrara
[2018-03-14] MEDS ORDERED: ADENOSINE 6 MG/2 ML VIAL ONE (10:50)
[2018-03-14 11:03] LABS: PLATELET COUNT 387 10^3/uL (150-400)
[2018-03-14 11:36] VITALS: BP 130/81
== END 2018-03-14 11:39 | disposition home or self-care (01) ==
LOC: EDUNIT#
DX: I47.1 Supraventricular tachycardia (principal); E11.9 Type 2 diabetes mellitus without complications; I50.9 Heart failure, unspecified; I25.10 Atherosclerotic heart disease of native coronary artery without angina pectoris; I25.2 Old myocardial infarction; E78.5 Hyperlipidemia, unspecified; Z79.01 Long term (current) use of anticoagulants; Z79.84 Long term (current) use of oral hypoglycemic drugs; Z95.2 Presence of prosthetic heart valve; Z95.5 Presence of coronary angioplasty implant and graft; Z86.73 Personal history of transient ischemic attack (TIA), and cerebral infarction without residual deficits; Z87.891 Personal history of nicotine dependence
CPT/HCPCS: 93005; 96374; 99291; J0153; 84484-PO

== ENCOUNTER → 2018-04-13 | Outpatient (CLI) | payer OTHER | LOC: BHFA 09:30 | PROVIDERS: ATTEND Internal Medicine Cardiovascular Disease | DX: I48.91 Unspecified atrial fibrillation (principal) ==

== ENCOUNTER → 2018-05-16 | Outpatient (CLI) | payer OTHER | LOC: FIMAGING 08:14 | PROVIDERS: ATTEND Family Medicine | DX: I70.90 Unspecified atherosclerosis (principal); R20.0 Anesthesia of skin ==